=== PATIENT | female | born 1940 | race Caucasian/White ===

== ENCOUNTER 2016-11-11 23:15 | Inpatient (IN) | payer OTHER ==
[~2016-11-11] VITALS: Ht 162.6 cm; Wt 102.7 kg
[2016-11-11 23:46] LABS: BASO % 0 % (0-3); EOS % 1 % (0-3); HEMATOCRIT 41.5 % (36.0-47.0); HEMOGLOBIN 13.3 g/dL (12.0-15.5); LYMPH # 2.2 x10^3/uL (1.0-4.8); LYMPH % 17 % (24-48); MEAN CORPUSCULAR HEMOGLOBIN 28 pg (25-35); MEAN CORPUSCULAR HGB CONC 32 g/dL (31-37); MEAN CORPUSCULAR VOLUME 87 fL (79-100); MONO % 11 % (0-9); NEUT % 72 % (31-73); PLATELET COUNT 284 x10^3/uL (140-400); RED BLOOD COUNT 4.78 x10^6/uL (3.50-5.40); WHITE BLOOD COUNT 13.3 x10^3/uL (4.0-11.0)
[2016-11-11 23:56] LABS: INR 0.9 (0.8-1.1); PROTHROMBIN TIME PATIENT 11.8 SEC (11.7-14.0)
[2016-11-11 23:58] LABS: CALCIUM 9.2 mg/dL (8.5-10.1); CREATININE 0.8 mg/dL (0.6-1.0); GFR 69.6; POTASSIUM 4.6 mmol/L (3.5-5.1)
[2016-11-12 00:04] LABS: ALBUMIN 3.3 g/dL (3.4-5.0); ALBUMIN/GLOBULIN RATIO 0.6 (1.0-1.7); TOTAL BILIRUBIN 0.3 mg/dL (0.2-1.0); TOTAL PROTEIN 8.5 g/dL (6.4-8.2)
[2016-11-12 00:09] LABS: BILIRUBIN,URINE NEGATIVE (NEG); GLUCOSE,URINE NEGATIVE (NEG); NITRITE,URINE NEGATIVE (NEG); PROTEIN,URINE NEGATIVE (NEG-TRACE); UROBILINOGEN,URINE 0.2 mg/dL (0.2 mg/dL)
[2016-11-12 00:15] LABS: BARBITURATES NEG (NEG); BENZODIAZEPINES NEG (NEG); CANNABINOIDS NEG (NEG); COCAINE NEG (NEG); ETHANOL, URINE NEG (NEG); METHADONE NEG (NEG); OPIATES NEG (NEG); PHENCYCLIDINE NEG (NEG)
[2016-11-12 00:17] LABS: BACTERIA,URINE MODERATE /HPF (0-FEW); SQUAMOUS EPITHELIAL CELL,UR MANY /LPF; WBC,URINE TNTC /HPF (0-4)
--- NOTE | 2016-11-12 00:22 | RAD ---
Examination: CT head without contrast History: History of left leg weakness. COMPARISON None available. TECHNIQUE Axial CT images of the head was performed without contrast. Exposure: One or more of the following dose reduction technique were utilized for this examination: 1. Automated exposure control. 2.Adjustment of MA and /or KV according to patient size. 3. Use of iterative reconstruction technique. Findings: There is no evidence of midline shift. No acute intracranial bleed or extra-axial fluid collection identified. Mild bilateral periventricular white matter hypodensities likely chronic small vessel ischemic disease. The visualized lateral ventricles, 3rd ventricle, 4th ventricles are appropriate for age. The basal cisterns are not effaced. The visualized paranasal sinuses, mastoid air cells are clear. IMPRESSION No acute intracranial findings. Electronically signed by: Arthur Contreras (Nov 12, 2016 00:20:40)
--- NOTE | 2016-11-12 00:43 | ED.ADGEN ---
Past Medical History Past Medical History: No Pertinent History Additional Past Medical Histor: PT IS A POOR HISTORIAN Past Surgical History: No Surgical History, Other Additional Past Surgical Histo: PT IS A POOR HISTORIAN BUT HAS A MIDLINE ABDOMINAL SCAR Alcohol Use: None Drug Use: None Adult General Chief Complaint Chief Complaint: WEAKNESS/GENERALIZED HPI HPI Patient is a 76 year old woman, who states she has not seen a primary care provider for "many many years", with history of fibromyalgia, who presents to the emergency department with a complaint of difficulty with ambulation due to weakness in her left leg over the past week. Patient is somewhat rambling in her report, denies any injuries, any nausea or vomiting, any headache, shortness of breath, chest pain, any swelling extremities, any numbness. States that she feels as though her left leg is "dragging", and will sometimes give out when she is ambulate. She states that her family got her walker today, after symptoms began last Friday, and that she was attempting to ambulate this evening from the bathroom, when she felt her leg give out, and she sat down on the carpeted floor of her hallway for about 30 minutes. She states her son then came along encounter, and at that point EMS was contacted. Patient denies any other complaints. She is noted to be tachycardic, heart rate in the 1 teens, oxygen saturations 98% room air, blood pressure is 200/120 on arrival. Review of Systems Review of Systems Constitutional: Denies fever or chills. [] Eyes: Denies change in visual acuity. [] HENT: Denies nasal congestion or sore throat. [] Respiratory: Denies cough or shortness of breath. [] Cardiovascular: Denies chest pain or edema. [] GI: Denies abdominal pain, nausea, vomiting, bloody stools or diarrhea. [] : Denies dysuria. [] Musculoskeletal: Denies back pain or joint pain. [] Integument: Denies rash. [] Neurologic: Denies headache, complaining of weakness in the left lower extremity. Denies any sensory changes. Endocrine: Denies polyuria or polydipsia. [] Lymphatic: Denies swollen glands. [] Psychiatric: Denies depression or anxiety. [] Current Medications Current Medications Current Medications Medications (Trade) Dose Ordered Sig/Efraín Start Time Stop Time Status Last Admin Dose Admin Sodium Chloride (Iv Sodium Chloride 0.9% 500ml Bag) 500 ml @ 500 mls/hr 1X ONCE 11/12/16 01:00 11/12/16 01:59 DC 11/12/16 01:35 500 MLS/HR Allergies Allergies Allergies Coded Allergies Type Severity Reaction Last Updated Verified No Known Drug Allergies 11/11/16 No Physical Exam Physical Exam Constitutional: Well developed, well nourished, no acute distress, non-toxic appearance. [] HENT: Normocephalic, atraumatic, bilateral external ears normal, oropharynx moist, no oral exudates, nose normal. [] Eyes: PERRLA, EOMI, conjunctiva normal, no discharge. [] Neck: Normal range of motion, no tenderness, supple, no stridor. [] Cardiovascular:Heart rate regular rhythm, no murmur [] Lungs & Thorax: Bilateral breath sounds clear to auscultation [] Abdomen: Bowel sounds normal, soft, no tenderness, no masses, no pulsatile masses. [] Skin: Warm, dry, no erythema, no rash. [] Back: No tenderness, no CVA tenderness. [] Extremities: No tenderness, no cyanosis, no clubbing, patient with some motion function of the left lower from especially with distraction, although she states she cannot lift it more than just off the bed. She denies any pain, has no tenderness to palpation. All other extremities are normal. Sensation is normal in all extremity is and cranial nerves. Neurologic: Alert and oriented X 3, normal motor function, normal sensory function, no focal deficits noted. [] Psychologic: Patient is gregarious, cheerful, judgement normal, insightful. Current Patient Data Vital Signs Vital Signs Date Time Temp Pulse Resp B/P Pulse Ox O2 Delivery O2 Flow Rate FiO2 11/12/16 00:45 114 225/115 96 Room Air 11/11/16 23:41 98.4 20 98.4 Lab Values Laboratory Tests Test 11/11/16 23:25 11/11/16 23:39 11/12/16 00:23 White Blood Count 13.3x10^3/uL (4.0-11.0) H Red Blood Count 4.78x10^6/uL (3.50-5.40) Hemoglobin 13.3g/dL (12.0-15.5) Hematocrit 41.5% (36.0-47.0) Mean Corpuscular Volume 87fL (79-100) Mean Corpuscular Hemoglobin 28pg (25-35) Mean Corpuscular Hemoglobin Concent 32g/dL (31-37) Red Cell Distribution Width 14.0% (11.5-14.5) Platelet Count 284x10^3/uL (140-400) Neutrophils (%) (Auto) 72% (31-73) Lymphocytes (%) (Auto) 17% (24-48) L Monocytes (%) (Auto) 11% (0-9) H Eosinophils (%) (Auto) 1% (0-3) Basophils (%) (Auto) 0% (0-3) Neutrophils # (Auto) 9.5x10^3uL (1.8-7.7) H Lymphocytes # (Auto) 2.2x10^3/uL (1.0-4.8) Monocytes # (Auto) 1.4x10^3/uL (0.0-1.1) H Eosinophils # (Auto) 0.1x10^3/uL (0.0-0.7) Basophils # (Auto) 0.0x10^3/uL (0.0-0.2) Prothrombin Time 11.8SEC (11.7-14.0) Prothrombin Time INR 0.9 (0.8-1.1) PTT 32SEC (24-38) Sodium Level 134mmol/L (136-145) L Potassium Level 4.6mmol/L (3.5-5.1) Chloride Level 98mmol/L (98-107) Carbon Dioxide Level 26mmol/L (21-32) Anion Gap 10 (6-14) Blood Urea Nitrogen 17mg/dL (7-20) Creatinine 0.8mg/dL (0.6-1.0) Estimated GFR (Cockcroft-Gault) 69.6 BUN/Creatinine Ratio 21 (6-20) H Glucose Level 129mg/dL (70-99) H Calcium Level 9.2mg/dL (8.5-10.1) Total Bilirubin 0.3mg/dL (0.2-1.0) Aspartate Amino Transferase (AST) 143U/L (15-37) H Alanine Aminotransferase (ALT) 64U/L (14-59) H Alkaline Phosphatase 87U/L (46-116) Troponin I Quantitative < 0.017ng/mL (0.000-0.055) WM-Ibo-E-Type Natriuretic Peptide 56pg/mL (0-449) Total Protein 8.5g/dL (6.4-8.2) H Albumin 3.3g/dL (3.4-5.0) L Albumin/Globulin Ratio 0.6 (1.0-1.7) L Urine Collection Type Unknown Urine Color Yellow Urine Clarity Cloudy Urine pH 7.0 Urine Specific [place] 1.015 Urine Protein Negativemg/dL (NEG-TRACE) Urine Glucose (UA) Negativemg/dL (NEG) Urine Ketones (Stick) Negativemg/dL (NEG) Urine Blood Trace (NEG) Urine Nitrite Negative (NEG) Urine Bilirubin Negative (NEG) Urine Urobilinogen Dipstick 0.2mg/dL (0.2 mg/dL) Urine Leukocyte Esterase Large (NEG) Urine RBC 3-5/HPF (0-2) Urine WBC Tntc/HPF (0-4) Urine Squamous Epithelial Cells Many/LPF Urine Amorphous Sediment Present/HPF Urine Bacteria Moderate/HPF (0-FEW) Urine Mucus Slight/LPF Urine Opiates Screen Neg (NEG) Urine Methadone Screen Neg (NEG) Urine Barbiturates Neg (NEG) Urine Phencyclidine Screen Neg (NEG) Urine Amphetamine/Methamphetamine Neg (NEG) Urine Benzodiazepines Screen Neg (NEG) Urine Cocaine Screen Neg (NEG) Urine Cannabinoids Screen Neg (NEG) Urine Ethyl Alcohol Neg (NEG) Lactic Acid Level 1.5mmol/L (0.4-2.0) Laboratory Tests 11/11/16 23:25 Laboratory Tests 11/11/16 23:25 EKG EKG EC: Sinus tachycardia, heart rate 120 beats minute, upright axis, QTC of 426, RI 188, QRS of 80, no ST elevations or depressions, aside from tachycardia , no other abnormalities identified. As interpreted by me. [] Radiology/Procedures Radiology/Procedures [] [facility] [address] [place] [address] IMAGING REPORT Signed PATIENT: FARHAT CHAVEZ ACCOUNT: [id number] : 1940 LOCATION: ER AGE: 76 SEX: F EXAM STATUS: REG ER ORD. PHYSICIAN: DELL VERGARA DO REASON: weakness PROCEDURE: HEAD WO CONTRAST Examination: CT head without contrast History: History of left leg weakness. COMPARISON None available. TECHNIQUE Axial CT images of the head was performed without contrast. Exposure: One or more of the following dose reduction technique were utilized for this examination: 1. Automated exposure control. 2.Adjustment of MA and /or KV according to patient size. 3. Use of iterative reconstruction technique. Findings: There is no evidence of midline shift. No acute intracranial bleed or extra-axial fluid collection identified. Mild bilateral periventricular white matter hypodensities likely chronic small vessel ischemic disease. The visualized lateral ventricles, 3rd ventricle, 4th ventricles are appropriate for age. The basal cisterns are not effaced. The visualized paranasal sinuses, mastoid air cells are clear. IMPRESSION No acute intracranial findings. Electronically signed by: Arthur Contreras (Nov 12, 2016 00:20:40) DICTATED and SIGNED BY: ARTHUR CONTRERAS MD DATE: 11/12/1619 CC: DELL VERGARA DO; NO PCP ~ Chest x-ray: One view: Normal cardiopulmonary silhouette, no infiltrates, no effusions, no pneumothorax, no soft tissue or bony abnormalities identified. As interpreted by me. Course & Med Decision Making Course & Med Decision Making Pertinent Labs and Imaging studies reviewed. (See chart for details) Patient is a no 4, although she has very exuberant affect. Noted to be persistently hypertensive, blood pressures to 20s over 1 teens to 120s. She states that she has no history of hypertension that she is aware of. Also tachycardic, heart rate in the low 100s. Denies any chest pain, any shortness of breath, no irregularities noted in her EKG. patient's neurologic examination is inconsistent, as she will sometimes move the left leg, although she states she was unable to do so willfully. No vision deficits, no sensory deficits noted, CT of the head obtained which was unremarkable. Due to patient' s hypertension, with lack of history of treatment, I did speak with Dr. Talbert of cardiology, he recommended giving the patient 12.5 mg of metoprolol 1 at this point, initiated the patient on an nitroglycerin infusion. Patient also noted to have a urinary tract infection, was initiated on antibiotic treatment, and IV fluids. I did discuss this with the patient, she was in agreement with plan for admission and management of her hypertension. Nitroglycerin drip initiated in the ED, blood pressure improved, to 160s over 80s, heart rate in the 80s, patient continued to rest comfortably and denied any new complaints. Will admit to the cardiac telemetry floor, with consultation with cardiology, and neurology, admitted to the service of Dr. Canales. Bridge orders entered per discussion. Dragon Disclaimer Dragon Disclaimer This electronic medical record was generated, in whole or in part, using a voice recognition dictation system. Departure Impression: Primary Impression: Malignant hypertension Additional Impressions: Urinary tract infection Weakness Disposition: ADMITTED INPATIENT Admitting Physician: Other Condition: IMPROVED Problem Qualifiers DELL VERGARA DO Nov 12, 2016 00:43
[2016-11-12] MEDS ORDERED: IV NORMAL SALINE 500ML BAG 500 ML IV ONE (01:00)
[2016-11-12] MEDS ORDERED: METOPROLOL TART IMMED RELEASE 25 MG TABLET PO ONE (01:15)
[2016-11-12] MEDS ORDERED: CEFTRIAXONE 1GM IVPB FOR OMNI 50 ML IV ONE (01:15)
[2016-11-12] MEDS ORDERED: NITROGLYCERIN PREMIX 250 ML IV ONE (01:15)
--- NOTE | 2016-11-12 02:53 | ACF ---
Admission Forms Criteria CARDIOLOGY GRG Clinical Indications for Admission to Inpatient Care ( Place 'X' for any and all applicable criteria): Hospital admission is needed for appropriate care of the patient because of ANY ONE of the following (1): [ ] I. Hemodynamic instability as indicated by ALL of the following (1)(2)(3) (4)(5) [ ]a) Vital signs or other findings not as expected for chronic patient condition or baseline [ ]b) Instability indicated by ANY ONE of the following: [ ]i) Hypotension [ ]ii) Symptomatic Tachycardia unresponsive to treatment ( e.g., analgesia, fluids, sedation as indicated) [ ]iii) Inadequate perfusion indicated by ANY ONE of the following: [ ] 1) Lactic acidosis (> 2 mmol/L) [ ] 2) New abnormal capillary refill (> 3 seconds) [ ] 3) Reduced urine output [ ] 4) New altered mental status [ ]iv) Orthostatic vital sign changes unresponsive to treatment (e.g., fluids) [ ]v) IV inotropic or vasopressor medication required to maintain adequate blood pressure or perfusion [ ] II. Severe heart failure as indicated by ANY ONE of the following(17)(18) [ ]a) Respiratory distress [ ]b) Hypotension [ ]c) Anasarca (refractory to outpatient therapy) [ ]d) Cardiac arrhythmias of immediate concern [ ]e) Myocardial ischemia [ ] III. Cardiac arrhythmias or findings of immediate concern indicated by ANY ONE of the following (19)(20): [ ] a) Heart rhythms that are inherently dangerous or unstable indicated by ANY ONE of the following (21)(22)(23): [ ] i) Resuscitated ventricular fibrillation or cardiac arrest [ ] ii) Ventricular escape rhythm [ ] iii) Sustained ventricular tachycardia (30 seconds or more of ventricular rhythm at greater than 100 beats per minute) [ ] iv) Nonsustained ventricular tachycardia and ANY ONE of the following: [ ] 1) Suspected cardiac ischemia as cause or consequence of ventricular tachycardia [ ] 2) In setting of acute myocarditis [ ] b) Unstable cardiac conduction defects indicated by ANY ONE of the following(23)(24)(25) [ ] i) Type II second-degree atrioventricular block [ ]ii) Third-degree atrioventricular block [ ]iii) New-onset left bundle branch block with suspected myocardial ischemia [ ]c) Any heart rhythm and ANY ONE of the following (21)(22)(26)(27) (28) [ ] i) Continuous long-term ECG monitoring needed (e.g., initiation of drug requiring monitoring for more than 24 hours) [ ] ii) Patient has automatic implanted cardioverter defibrillator that is repeatedly firing, malfunctioning, or in need of immediate adjustment of settings beyond the scope of ambulatory or observation care [ ]d) Heart rhythms of concern due to ANY ONE of the following: [ ] i) Hypotension [ ] ii) Respiratory distress [ ] iii) Association with other significant symptoms (e.g., bradycardia with syncope or ongoing dizziness, supraventricular tachycardia with chest pain (14)(15)(17) [ ] IV. Monitoring for cardiac contusion beyond the scope of observation care needed [A](30)(31)(32) [ ] V. Surgical or device complication (e.g., valve replacement complication , pacemaker dysfunction) (35)(41)(44)(45)(46) [ ] . Inpatient palliative care needed. [B](49) Also use Inpatient Palliative Care Criteria [ ] VII. Nonbacterial thrombotic (marantic) endocarditis (36)(43)(47)(48) [X] VIII. Cardiology condition, symptom, or finding for which emergency and observation care has failed or are not considered appropriate. [ ] IX. Acute valvular disease requiring inpatient as indicated by ANY ONE of the following (41) [ ]a) Acute valvular regurgitation (42) [ ]b) Noninfectious valvulitis (43) [ ]c) Obstructive valve thrombosis [ ]d) Paravalvular leak [ ]e) Other significant valvular disorder remaining after emergency or observation level of care (as appropriate) [ ]X. Pericardial disease requiring inpatient treatment as indicated by ANY ONE of the following (33)(34)(35)(36)(37) [ ]a) Suspected tamponade (38)(39)(40) [ ]b) Hemopericardium [ ]c) Other significant pericardial disorder remaining after emergency or observation level of care (as appropriate) [ ] XI. Cardiac ischemia beyond scope of emergency and observation care. [ ] XII. Hypertension requiring inpatient treatment as indicated by ANY ONE of the following (6)(7)(8) [ ]a) SBP greater than 220 mm Hg or DBP greater than 120 mmHg despite treatment [ ]b) SBP greater than 140 mm Hg or DBP greater than 100 mm Hg with evidence of acute end organ damage as indicated by ANY ONE of the following [ ] i) Encephalopathy [ ] ii) Acute renal failure as indicated by new onset of ANY ONE of the following (9)(10)(11)(12)(13) [ ]1) 3-fold rise in serum creatinine from baseline [ ]2) Serum creatinine greater than 4 mg/dL ( 354 micromoles/L) with acute rise greater than 0.5 mg/dL (44.2 micromoles/L) [ ]3) Reduction of more than 75% in estimated glomerular filtration rate from baseline [ ]4) Estimated glomerular filtration rate less than 35 mL/min/1.73m2 (0.59 mL/sec/1.73m2) in child up to 18 years of age [ ]5) Cessation of urine output indicated by ALL of the following [ ]A. Adequate volume status [ ]B. Inadequate urine output as indicated by ANY ONE of the following [ ]a. Urine output less than 0.3 mL/kg/hr for 24 hours [ ]b. Anuria (urine output less than 0.1 mL/kg/hr) for 12 hours [ ] iii) Aortic dissection [ ] iv) Myocardial Ischemia [ ] v) Left ventricular heart failure [ ]vi) Retinal Hemorrhage [ ]vii) Other significant finding [ ]c) Hypertension in child requiring inpatient treatment as indicated by ALL of the following(14)(15)(16) [ ] i) Outpatient treatment not effective, not available, or not appropriate [ ]ii) SBP or DBP greater than 95th percentile for age [ ]iii) Evidence of acute end organ damage as indicated by ANY ONE of the following [ ]1) Altered mental status [ ]2) Acute renal failure as indicated by new onset of ANY ONE of the following(9)(10)(11)(12)(13) [ ]A. 3-fold rise in serum creatinine from baseline [ ]B. Serum creatinine greater than 4 mg/dL (354 micromoles/L) with acute rise greater than 0.5 mg/dL (44.2 micromoles/L) [ ]C. Reduction of more than 75% in estimated glomerular filtration rate from baseline [ ]D. Estimated glomerular filtration rate less than 35 mL/min/1.73m2 (0.59 mL/sec/1.73m2) in child up to 18 years of age [ ]E. Cessation of urine output indicated by ALL of the following [ ]a. Adequate volume status [ ]b. Inadequate urine output as indicated by ANY ONE of the following [ ]i) Urine output less than 0.3 mL/kg/hr for 24 hours [ ]ii) Anuria ( urine output less than 0.1 mL/kg/hr) for 12 hours [ ]3) Severe headache [ ]4) Visual disturbance [ ]5) Retinal hemorrhage [ ]6) Other significant finding [ ]XIII. Complications of transplanted heart indicated by ANY ONE of the following(61): [ ]a) Acute graft rejection requiring inpatient management (eg, intravenous immunosuppression)(62)(63) [ ]b) Acute graft heart failure indicated by ANY ONE of the following(64): [ ]i) Hemodynamic instability [ ]ii) Cardiac arrhythmias of immediate concern [ ]iii) Pulmonary edema that is very severe (eg, mechanical ventilation needed, imminent or likely, need for 100% oxygen to keep oxygen saturation above 90%) [ ]iv) Pulmonary edema that is persistent as indicated by ALL of the following: [ ]1) New need for oxygen therapy to keep oxygen saturation above 90% (or increased FiO2 need from baseline) [ ]2) Has not improved sufficiently with emergency department or observation care IV diuretics or other heart failure treatments[E] [ ]v) Altered mental status that is severe or persistent [ ]vi) Increased creatinine (new on laboratory test) with reduction of more than 50% in estimated glomerular filtration rate from baseline [ ]vii) Progressively (ongoing) rising creatinine (known from past laboratory test) with reduction of more than 25% in estimated glomerular filtration rate from baseline [ ]viii) Acute renal failure [ ]ix) Acute peripheral ischemia (eg, examination shows pulseless, cool, mottled, or cyanotic extremity) [ ]x) Pulmonary artery catheter monitoring needed [ ]xi) Other sign or symptom of heart failure requiring inpatient treatment (ie, too severe or not responsive to outpatient and observation care treatment) [ ]c) Infection requiring inpatient management (eg, Hemodynamic instability, need for intravenous antimicrobial treatment)(66)(67)(68)(69)(70) [ ]d) Cardiac allograft vasculopathy requiring inpatient management ( eg evidence of cardiac ischemia)(71) [ ]e) Other complication of transplanted heart (eg, stroke, severe pulmonary hypertension, severe valvular dysfunction) requiring inpatient management(72) The original [facility] content created by [facility] has been revised. The portions of the content which have been revised are identified through the use of italic text or in bold, and [facility] has neither reviewed nor approved the modified material. All other unmodified content is copyright [facility]. Please see references footnoted in the original [facility] edition 2016 Admission Criteria Met?: Yes MARCOS ALLISON Nov 12, 2016 02:53
[2016-11-12] MEDS ORDERED: ONDANSETRON PF 4 MG/2 ML VIAL. IV PRN (03:00)
[2016-11-12 03:40] VITALS: BP 181/96
--- NOTE | 2016-11-12 07:19 | RAD ---
Portable chest, 11/12/2016: History: Weakness The heart size and pulmonary vascularity are normal. There is mild tortuosity of the thoracic aorta. No pulmonary infiltrates are seen. There is no evidence of pleural fluid. IMPRESSION: No acute cardiopulmonary abnormality is detected.
[2016-11-12 07:44] VITALS: BP 188/96
--- NOTE | 2016-11-12 08:05 | EKG ---
[facility] [address] [place] [address] Test Date: 2016-11-11 Test Time: 23:23:45 Pat Name: FARHAT CHAVEZ Department: Room: 201 1 Gender: F Campaign Worker: : 1940 Requested By: DELL VERGARA Order Number: [id number] Reading MD: Margo Hess Measurements Intervals [place] Rate: 120 P: 61 DC: 158 QRS: 15 QRSD: 80 T: 46 QT: 298 QTc: 426 Interpretive Statements SINUS TACHYCARDIA OTHERWISE NORMAL ECG RI6.01 No previous ECG available for comparison Electronically Signed On 11-12-2016 20:58:12 CDT by Margo Hess
[2016-11-12] MEDS ORDERED: METOPROLOL TART IMMED RELEASE 25 MG TABLET PO SCH (10:30)
[2016-11-12 10:42] VITALS: BP 176/84
--- NOTE | 2016-11-12 10:47 | PDOC2 ---
JOSILVIANO NORIEGA [employer] 11/12/16 1047: CARDIAC CONSULT DATE OF CONSULT Date of Consult DATE: 11/12/16 TIME: 10:26 REASON FOR CONSULT Reason for Consult: HTN REFERRING PHYSICIAN Referring Physician: Dr. Lisa Contreras SOURCE Source: Chart review, Patient (who is a poor historian) HISTORY OF PRESENT ILLNESS HISTORY OF PRESENT ILLNESS 76 year old female with bilateral upper arm pain starting on either 10/12/16 or . She initially treated with BenGay and Dr. Colin ointment without change in pain. She subsequently developed Left hip and Left leg pain which she treated with Vit E ointment. She reports multiple dates for when she started "dragging" the Left leg. She thought she had fibromyalgia. Has treated with multiple supplements and/or "natural products" at home. Does not monitor BP but treats with powdered green tea based on how she feels. Denies CP, palpitations, LE edema, melana, dysuria, dizziness, lightheadedness, visual changes. EKG demonstrates ST without acute changes. NT-proBNP not consistent with CHF and troponin level not consistent with AMI. CT of head without acute findings. SBP > 200 POA and given one oral dose of metoprolol and then started on NTG gtt. 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, surgical removal of appendix, GB, and hemorrhoidectomy with subsequent cobalt therapy @ [facility]) PAST SURGICAL HISTORY Past Surgical History see [facility] FAMILY HISTORY Family History: Diabetes (mother) SOCIAL HISTORY Smoke: Quit ALCOHOL: other (quit) Drugs: Other CURRENT MEDICATIONS CURRENT MEDICATIONS Current Medications Medications (Trade) Dose Ordered Sig/Efraín Route PRN Reason Start Time Stop Time Status Last Admin Dose Admin Sodium Chloride 500 ml @ 500 mls/hr 1X ONCE IV 11/12/16 01:00 11/12/16 01:59 DC 11/12/16 01:35 Nitroglycerin/ Dextrose (Nitroglycerin Drip) 250 ml @ 0 mls/hr 1X ONCE IV 11/12/16 01:15 11/12/16 01:16 DC 11/12/16 01:35 Metoprolol Tartrate 12.5 mg 12.5 mg 1X ONCE PO 11/12/16 01:15 11/12/16 01:16 DC 11/12/16 01:34 Ceftriaxone Sodium (Rocephin 1gm Ivpb For Omni) 50 ml @ 100 mls/hr 1X ONCE IV 11/12/16 01:15 11/12/16 01:44 DC 11/12/16 01:34 ALLERGIES ALLERGIES: Coded Allergies: No Known Drug Allergies (Unverified , 11/11/16) ROS Review of System 14 point review with pertinent positives in HPI PHYSICAL EXAM General: Alert, Cooperative, No acute distress HEENT: Atraumatic, PERRLA Lungs: Clear to auscultation, Normal air movement Heart: Regular rate (tachycardic), Normal S1, Normal S2, Other (tele: ST; no carotid bruits) Abdomen: Normal bowel sounds, Soft, No tenderness Extremities: No edema, Normal pulses Skin: No rashes Neuro: Normal speech Psych/Mental Status: Mental status NL, Mood NL MUSCULOSKELETAL: No deformity VITALS VITALS Vital Signs Date Time Temp Pulse Resp B/P Pulse Ox O2 Delivery O2 Flow Rate FiO2 11/12/16 08:00 Room Air 11/12/16 07:44 98.5 90 20 188/96 96 98.5 LABS Lab: Laboratory Tests Test 11/11/16 23:25 11/11/16 23:39 11/12/16 00:23 White Blood Count 13.3x10^3/uL (4.0-11.0) Red Blood Count 4.78x10^6/uL (3.50-5.40) Hemoglobin 13.3g/dL (12.0-15.5) Hematocrit 41.5% (36.0-47.0) Mean Corpuscular Volume 87fL (79-100) Mean Corpuscular Hemoglobin 28pg (25-35) Mean Corpuscular Hemoglobin Concent 32g/dL (31-37) Red Cell Distribution Width 14.0% (11.5-14.5) Platelet Count 284x10^3/uL (140-400) Neutrophils (%) (Auto) 72% (31-73) Lymphocytes (%) (Auto) 17% (24-48) Monocytes (%) (Auto) 11% (0-9) Eosinophils (%) (Auto) 1% (0-3) Basophils (%) (Auto) 0% (0-3) Neutrophils # (Auto) 9.5x10^3uL (1.8-7.7) Lymphocytes # (Auto) 2.2x10^3/uL (1.0-4.8) Monocytes # (Auto) 1.4x10^3/uL (0.0-1.1) Eosinophils # (Auto) 0.1x10^3/uL (0.0-0.7) Basophils # (Auto) 0.0x10^3/uL (0.0-0.2) Prothrombin Time 11.8SEC (11.7-14.0) Prothromb Time International Ratio 0.9 (0.8-1.1) Activated Partial Thromboplast Time 32SEC (24-38) Sodium Level 134mmol/L (136-145) Potassium Level 4.6mmol/L (3.5-5.1) Chloride Level 98mmol/L (98-107) Carbon Dioxide Level 26mmol/L (21-32) Anion Gap 10 (6-14) Blood Urea Nitrogen 17mg/dL (7-20) Creatinine 0.8mg/dL (0.6-1.0) Estimated GFR (Cockcroft-Gault) 69.6 BUN/Creatinine Ratio 21 (6-20) Glucose Level 129mg/dL (70-99) Calcium Level 9.2mg/dL (8.5-10.1) Total Bilirubin 0.3mg/dL (0.2-1.0) Aspartate Amino Transf (AST/SGOT) 143U/L (15-37) Alanine Aminotransferase (ALT/SGPT) 64U/L (14-59) Alkaline Phosphatase 87U/L (46-116) Troponin I Quantitative < 0.017ng/mL (0.000-0.055) EV-Zwn-H-Type Natriuretic Peptide 56pg/mL (0-449) Total Protein 8.5g/dL (6.4-8.2) Albumin 3.3g/dL (3.4-5.0) Albumin/Globulin Ratio 0.6 (1.0-1.7) Urine Collection Type Unknown Urine Color Yellow Urine Clarity Cloudy Urine pH 7.0 Urine Specific [place] 1.015 Urine Protein Negativemg/dL (NEG-TRACE) Urine Glucose (UA) Negativemg/dL (NEG) Urine Ketones (Stick) Negativemg/dL (NEG) Urine Blood Trace (NEG) Urine Nitrite Negative (NEG) Urine Bilirubin Negative (NEG) Urine Urobilinogen Dipstick 0.2mg/dL (0.2 mg/dL) Urine Leukocyte Esterase Large (NEG) Urine RBC 3-5/HPF (0-2) Urine WBC Tntc/HPF (0-4) Urine Squamous Epithelial Cells Many/LPF Urine Amorphous Sediment Present/HPF Urine Bacteria Moderate/HPF (0-FEW) Urine Mucus Slight/LPF Urine Opiates Screen Neg (NEG) Urine Methadone Screen Neg (NEG) Urine Barbiturates Neg (NEG) Urine Phencyclidine Screen Neg (NEG) Urine Amphetamine/Methamphetamine Neg (NEG) Urine Benzodiazepines Screen Neg (NEG) Urine Cocaine Screen Neg (NEG) Urine Cannabinoids Screen Neg (NEG) Urine Ethyl Alcohol Neg (NEG) Lactic Acid Level 1.5mmol/L (0.4-2.0) IMAGES IMAGES CXR: The heart size and pulmonary vascularity are normal. There is mild tortuosity of the thoracic aorta. No pulmonary infiltrates are seen. There is no evidence of pleural fluid. IMPRESSION: No acute cardiopulmonary abnormality is detected. EKG EKG no acute changes ASSESSMENT/PLAN ASSESSMENT/PLAN 1. malignant HTN, POA start oral meds and wean IV NTG off echo to evaluate for hypertensive heart disease 2. weakness LLE no evidence of acute stroke on CT of head 3. tachycardia not febrile or anemic will check TSH ? related to supplements she takes that she does not known the names of Problems: AGNES JAMES MD 11/12/16 1827: CARDIAC CONSULT ALLERGIES ALLERGIES: Coded Allergies: No Known Drug Allergies (Unverified , 11/11/16) ASSESSMENT/PLAN ASSESSMENT/PLAN Pt. seen and examined. Agree with above note. patient has significant psychiatric issues that preclude appropriate treatment with normal CV meds. I tried to have a conversation with her but she is not really understanding implications of her HTN Normal cardiac exam. Will continue ca channel blockers. Hope that she complies when she leaves the hospital. Problems: SILVIANO LOPEZ APRN Nov 12, 2016 10:47 AGNES JAMES MD Nov 12, 2016 18:27
[2016-11-12 10:54] LABS: CHOLESTEROL/HDL RATIO 2.4
[2016-11-12] MEDS ORDERED: DILTIAZEM HCL 180 MG CAP.ER.24H PO SCH (11:00)
[2016-11-12] MEDS: hydrALAZINE 20 MG/ML VIAL. IVP PRN (12:05)
--- NOTE | 2016-11-12 12:25 | HP ---
ADMIT DATE: 11/12/2016 CHIEF COMPLAINT: Weakness. HISTORY OF PRESENT ILLNESS: The patient is a pleasant elderly female who is a poor historian. She presents with weakness. She has been ____ left leg a little bit. She also has a history of fibromyalgia. She is a poor historian. Imaging studies in the ER really did not show any acute stroke, but she certainly has malignant hypertension with pressures in the 200s. I have discussed the case with the ER physician. She is being admitted with consultation to Cardiology and Neurology and she is being placed on a nitro drip. PAST MEDICAL HISTORY: Probable early dementia, hypertension, noncompliance. Other past medical history is not known. She seems to be a poor historian. ALLERGIES: None. FAMILY HISTORY: Coronary artery disease. SOCIAL HISTORY: She does not drink, smoke or take drugs. I believe she lives at a facility. MEDICATIONS: Reviewed. According to records, she ____ anything. REVIEW OF SYSTEMS: Unobtainable, the patient is too confused, although she does complain of some left-sided weakness. PHYSICAL EXAMINATION: VITAL SIGNS: Temperature afebrile, pulse 67, respirations 18, blood pressure is down to 176/84, the highest we have had 225/115. She is on nitro drip. HEART: Distant S1, S2. LUNGS: Clear. ABDOMEN: Soft, positive bowel sounds. EXTREMITIES: Trace edema. SKIN: No rashes. PSYCHIATRIC: She is a little anxious. VASCULAR: Good capillary refill. ENDOCRINE: No thyromegaly. LYMPHATICS: No cervical nodes. HEMATOPOIETIC: No bruising. NEUROLOGICAL: She seems a little weak on the left, but she is not really participating in my exam very well. LABORATORY DATA: White count 13, hemoglobin 13, platelets 284. Electrolytes pending. Troponin is 0. Drug screen is negative. Urinalysis shows too numerous to count white cells and moderate bacteria and large amount of leukocyte esterase. INR 0.9. ASSESSMENT AND PLAN: Accelerated hypertension, resolving weakness with incidental finding of urinary tract infection, probable metabolic encephalopathy, possible early dementia. The patient has been admitted. We will start IV antibiotics. Consult Cardiology, consult Neurology, IV nitro for her accelerated hypertension. PT, OT evaluate and treat. Continue home medicines. senior care evaluation. NIAL K. CASTLE, DO DR: NOEMI/lorenzo JOB#: [id number] / [id number]
--- NOTE | 2016-11-12 12:38 | CARD ---
APPROVED REPORT EXAM: Two-dimensional and M-mode echocardiogram with Doppler, color Doppler with bubble study. Other Information Quality : Average Rhythm : NSR INDICATION CVA/TIA Hypertension/HCVD Echo Enhancing Agent Indication: Rule Out Septal Defect Agent/Amount Used: Agitated Saline 16mL 2D DIMENSIONS RVDd2.3 (2.9-3.5cm)Left Atrium(2D)4.0 (1.6-4.0cm) IVSd1.2 (0.7-1.1cm)Aortic Root(2D)2.6 (2.0-3.7cm) LVDd4.9 (3.9-5.9cm)LVOT Diameter2.1 (1.8-2.4cm) PWd1.2 (0.7-1.1cm)LVDs3.4 (2.5-4.0cm) FS (%) 27.7 %SV65.4 ml LVEF(%)55.0 (>50%) Aortic Valve AoV Peak Lonny.157.7cm/sAoV VTI26.3cm AO Peak GR.9.9mmHgLVOT VTI 15.18cm AO Mean GR.6mmHgAVA (VTI)2.05cm2 Mitral Valve MV E Nnabmvlz48.3cm/sMV E Peak Gr.6mmHg MV DECEL [id number] A Qxvppuao737.7cm/s MV E Mean Gr.3mmHgMV AIY71bh E/A Ratio0.8MV A Soelkhza00ks MVA (PHT)4.40cm2 TDI Lateral E' P. V7.53cm/sMedial E' P. V5.15cm/s E/Lateral E'11.3E/Medial E'16.6 Tricuspid Valve TR P. Tgxviqfx759vv/sRAP MMQQZLRE2smHk TR Peak Gr.58xkXjPVXR90wyUh LEFT VENTRICLE The left ventricle is normal size. There is borderline concentric left ventricular hypertrophy. Left ventricle systolic function is low normal at 50%. There is normal LV segmental wall motion. Tissue Do ppler imaging reveals mild left ventricular diastolic dysfunction. RIGHT VENTRICLE The right ventricle is normal size. The right ventricular systolic function is normal. ATRIA The left atrium size is normal. The right atrium size is normal. The interatrial septum is intact wit h no evidence for an atrial septal defect or patent foramen ovale as noted on 2-D or Doppler imaging. Injection of bubbles documented no interatrial shunt. AORTIC VALVE The aortic valve is normal in structure and function. The aortic valve is trileaflet. Doppler and Col or Flow revealed no significant aortic regurgitation. There is no significant aortic valvular stenosi s. MITRAL VALVE The mitral valve leaflets are thickened. There is no mitral valve stenosis. Doppler and Color Flow re vealed trace to mild mitral regurgitation. TRICUSPID VALVE The tricuspid valve is normal in structure and function. Doppler and Color Flow revealed trace to mil d tricuspid regurgitation. The PA pressure was estimated at 26 mmHg. There is no tricuspid valve sten osis. PULMONIC VALVE The pulmonic valve is not well visualized. Doppler and Color Flow revealed no pulmonic valvular regur gitation. There is no pulmonic valvular stenosis. GREAT VESSELS The aortic root is normal in size. The IVC is normal in size and collapses >50% with inspiration. PERICARDIAL EFFUSION There is no evidence of significant pericardial effusion. Critical Notification Critical Value: No <Conclusion> Left ventricle systolic function is low normal at 50%. There is normal LV segmental wall motion. The interatrial septum is intact with no evidence for an atrial septal defect or patent foramen ovale as noted on 2-D or Doppler imaging. Injection of bubbles documented no interatrial shunt.
[2016-11-12] MEDS: IV NORMAL SALINE 1000ML BAG 1,000 ML IV SCH ×2 (12:56→22:45)
[2016-11-12 15:55] VITALS: BP 157/88
--- NOTE | 2016-11-12 16:17 | RAD ---
PROCEDURE MRI brain without contrast. HISTORY Left-sided weakness. TECHNIQUE Sagittal T1, axial T1, axial T2, axial FLAIR, axial T2 gradient, coronal T2, and diffusion imaging with ADC map were performed. COMPARISON CT head from 1 day earlier. FINDINGS There is prominence of the ventricles and sulci. FLAIR hyperintensities in the supratentorial white matter are nonspecific but most suggestive of mild small vessel ischemic disease. There is no acute intracranial hemorrhage or extra-axial fluid collection. There is no mass effect or midline shift. There is no restricted diffusion to suggest an acute infarct. Cervicomedullary junction is unremarkable. Intracranial flow voids are preserved. There is minimal ethmoid mucosal thickening. Mastoid air cells are clear. IMPRESSION Brain parenchymal volume loss and mild probable small-vessel ischemic disease. No acute intracranial findings. Electronically signed by: Dar Stephenson MD (Nov 12, 2016 16:15:41)
[2016-11-12] MEDS: HYDRALAZINE 25 MG TABLET PO SCH ×2 (16:19→21:26)
--- NOTE | 2016-11-12 17:01 | PDOC2 ---
NEUROLOGY CONSULT Date of Admission Date of Admission DATE: 11/12/16 TIME: 16:45 Reason for Consult Reason for Consult: IMPRESSION: Generalized tiredness. Left LE weakness and pain. Left LE radiculopathy? Hypertensive emergency, BP 225/109-124 mmHg. HTN UTI Degenerative spine disease. Obesity. No evidence of acute CVA this time. RECOMMENDATIONS/PLAN: L-spine MRI. BP control. Neurontin 100 mg tid. Treat UTI and underlying medical diseases. Lab: see orders. OT/PT. Brain MRI: Negative. Lab: TSH, Vit B12 wnl. Elevated CK. HISTORY OF THE PRESENT ILLNESS: 76-y-old AA female patient with above medical diseases and HTN that was not controlled due to her non-compliance for treatment. She developed symptoms of left LE weakness and pain for about 1 week before she was admitted into hospital. No symptoms of urinary or bowel dysfunction. Her UE and cranial nerves were nt involved. PAST MEDICAL HISTORY: Please see above. PAST SURGERY HISTORY: Appendectomy Hemorroidectomy ALLERGY: Reviewed. MEDICATIONS: Refer to MAR FAMILY HISTORY: DM SOCIAL HISTORY: Lives at home. Denies current smoking, drinking, and illicit drug use. She smoked cigarettes in past. REVIEW OF SYSTEMS: Constitutional: No malnutrition, weight loss, cachexia. Head: No recent traumatic brain or head injury. Skin: No edema, or rash. Ear: No infection. Eyes: No vision loss or color blindness. Nose: No bleeding or purulent discharges. Hearing: No hearing decrease. Neck: No recent injury. Breast: No history of cancer, masses,or discharges. Cardiac: HTN. Pulmonary: No COPD. GI: No GI ulcer, GI bleeding. Urinary/genital: UTI. Endocrinologic: obesity Skeletomuscular: Generalized weakness tiredness. Neurological: see HP. Psychiatric: Denies drug use/abuse. Otherwise, not [id number] review of systems. PHYSICAL EXAMINATION: General appearance is in no acute distress. HEENT: Normocephalic and nontraumatic. Eyes, nose, ears, and throat are unremarkable. Neck is supple. No lymphadenopathy. No bruits are heard over the carotid artery. No crepitus. Cardiovascular: S1, S2, regular rate and rhythm. Pulmonary: Clear to auscultation bilaterally. Abdomen: Bowel sounds are positive. Abdomen is soft, nontender, and nondistended. Extremities: No rash, lesions, or edema. No restriction of range of motion NEUROLOGICAL EXAMINATION: Alert Oriented to time, place and person. PERRL. EOMI. CN: no focal findings. Muscle tone: within normal. Muscle strength: 5 right side, 4- left LE. DTR: 1-2 Plantar reflex: Flexor response bilaterally Gait: not examined in bed. Sensory exam: no abnormal findings on right side, pain to palpation ojn left lateral aspect of LE. No cerebellar signs elicited. F-T-N test accurate. Current Medications Current Medications Current Medications Sodium Chloride 500 ml @ 500 mls/hr 1X ONCE IV Last administered on 01:35; Start 11/12/16 at 01:00; Stop 11/12/16 at 01:59; Status DC Nitroglycerin/ Dextrose (Nitroglycerin Drip) 250 ml @ 0 mls/hr 1X ONCE IV Last administered on 11/12/16 01:35; Start 11/12/16 at 01:15; Stop 11/12/16 at 01:16; Status DC Metoprolol Tartrate 12.5 mg 12.5 mg 1X ONCE PO Last administered on 11/12/16 01:34; Start 11/12/16 at 01:15; Stop 11/12/16 at 01:16; Status DC Ceftriaxone Sodium 50 ml @ 100 mls/hr 1X ONCE IV Last administered on 01:34; Start 11/12/16 at 01:15; Stop 11/12/16 at 01:44; Status DC Ceftriaxone Sodium/Sodium Chloride (Rocephin/Iv Sodium Chloride 0.9% 50ml) 50 ml @ 100 mls/hr Q24H IV ; Start 11/12/16 at 21:00 Ondansetron HCl (Zofran) 4 mg PRN Q8HRS PRN IV NAUSEA/VOMITING; Start 11/12/16 at 03:00; Stop 11/13/16 at 02:59 Metoprolol Tartrate (Lopressor) 25 mg BID PO ; Start 11/12/16 at 10:30; Stop at 10:35; Status DC Hydralazine HCl (Apresoline) 10 mg PRN Q4HRS PRN IVP ELEVATED BP, SEE COMMENTS Last administered on 11/12/16 12:05; Start 11/12/16 at 10:30 Diltiazem HCl (Cardizem 24hr Cd) 180 mg DAILY PO Last administered on 11:11; Start 11/12/16 at 11:00; Stop 11/12/16 at 12:44; Status DC Diltiazem HCl (Cardizem 24hr Cd) 240 mg DAILY PO ; Start 11/13/16 at 09:00 Hydralazine HCl 25 mg 25 mg Q8HRS PO Last administered on 11/12/16 16:19; Start 11/12/16 at 14:00 Sodium Chloride (Iv Sodium Chloride 0.9% 1000ml Bag) 1,000 ml @ 100 mls/hr Q10H IV Last administered on 11/12/16 12:56; Start 11/12/16 at 13:30 Active Scripts Active Reported No Known Medications Prior To Admisstion (Info) Each 1 Each MC Allergies Allergies: Coded Allergies: No Known Drug Allergies (Unverified , 11/11/16) Vitals VITALS Vital Signs Date Time Temp Pulse Resp B/P Pulse Ox O2 Delivery O2 Flow Rate FiO2 11/12/16 16:19 91 158/77 11/12/16 15:55 98.2 20 96 Room Air 98.2 Labs Labs Laboratory Tests Test 11/11/16 23:25 11/11/16 23:39 11/12/16 00:23 11/12/16 11:55 White Blood Count 13.3x10^3/uL (4.0-11.0) Red Blood Count 4.78x10^6/uL (3.50-5.40) Hemoglobin 13.3g/dL (12.0-15.5) Hematocrit 41.5% (36.0-47.0) Mean Corpuscular Volume 87fL (79-100) Mean Corpuscular Hemoglobin 28pg (25-35) Mean Corpuscular Hemoglobin Concent 32g/dL (31-37) Red Cell Distribution Width 14.0% (11.5-14.5) Platelet Count 284x10^3/uL (140-400) Neutrophils (%) (Auto) 72% (31-73) Lymphocytes (%) (Auto) 17% (24-48) Monocytes (%) (Auto) 11% (0-9) Eosinophils (%) (Auto) 1% (0-3) Basophils (%) (Auto) 0% (0-3) Neutrophils # (Auto) 9.5x10^3uL (1.8-7.7) Lymphocytes # (Auto) 2.2x10^3/uL (1.0-4.8) Monocytes # (Auto) 1.4x10^3/uL (0.0-1.1) Eosinophils # (Auto) 0.1x10^3/uL (0.0-0.7) Basophils # (Auto) 0.0x10^3/uL (0.0-0.2) Prothrombin Time 11.8SEC (11.7-14.0) Prothromb Time International Ratio 0.9 (0.8-1.1) Activated Partial Thromboplast Time 32SEC (24-38) Sodium Level 134mmol/L (136-145) Potassium Level 4.6mmol/L (3.5-5.1) Chloride Level 98mmol/L (98-107) Carbon Dioxide Level 26mmol/L (21-32) Anion Gap 10 (6-14) Blood Urea Nitrogen 17mg/dL (7-20) Creatinine 0.8mg/dL (0.6-1.0) Estimated GFR (Cockcroft-Gault) 69.6 BUN/Creatinine Ratio 21 (6-20) Glucose Level 129mg/dL (70-99) Calcium Level 9.2mg/dL (8.5-10.1) Total Bilirubin 0.3mg/dL (0.2-1.0) Aspartate Amino Transf (AST/SGOT) 143U/L (15-37) Alanine Aminotransferase (ALT/SGPT) 64U/L (14-59) Alkaline Phosphatase 87U/L (46-116) Troponin I Quantitative < 0.017ng/mL (0.000-0.055) IO-Ekw-N-Type Natriuretic Peptide 56pg/mL (0-449) Total Protein 8.5g/dL (6.4-8.2) Albumin 3.3g/dL (3.4-5.0) Albumin/Globulin Ratio 0.6 (1.0-1.7) Urine Collection Type Unknown Urine Color Yellow Urine Clarity Cloudy Urine pH 7.0 Urine Specific [place] 1.015 Urine Protein Negativemg/dL (NEG-TRACE) Urine Glucose (UA) Negativemg/dL (NEG) Urine Ketones (Stick) Negativemg/dL (NEG) Urine Blood Trace (NEG) Urine Nitrite Negative (NEG) Urine Bilirubin Negative (NEG) Urine Urobilinogen Dipstick 0.2mg/dL (0.2 mg/dL) Urine Leukocyte Esterase Large (NEG) Urine RBC 3-5/HPF (0-2) Urine WBC Tntc/HPF (0-4) Urine Squamous Epithelial Cells Many/LPF Urine Amorphous Sediment Present/HPF Urine Bacteria Moderate/HPF (0-FEW) Urine Mucus Slight/LPF Urine Opiates Screen Neg (NEG) Urine Methadone Screen Neg (NEG) Urine Barbiturates Neg (NEG) Urine Phencyclidine Screen Neg (NEG) Urine Amphetamine/Methamphetamine Neg (NEG) Urine Benzodiazepines Screen Neg (NEG) Urine Cocaine Screen Neg (NEG) Urine Cannabinoids Screen Neg (NEG) Urine Ethyl Alcohol Neg (NEG) Lactic Acid Level 1.5mmol/L (0.4-2.0) Triglycerides Level 67mg/dL (0-150) Cholesterol Level 141mg/dL (0-200) LDL Cholesterol, Calculated 69mg/dL (0-100) VLDL Cholesterol, Calculated 13mg/dL (0-40) HDL Cholesterol 59mg/dL (40-60) Cholesterol/HDL Ratio 2.4 Thyroid Stimulating Hormone (TSH) 1.481uIU/mL (0.358-3.74) Creatine Kinase 3281U/L (26-192) Vitamin B12 Level 524pg/mL (247-911) Laboratory Tests Test 11/11/16 23:25 11/11/16 23:39 11/12/16 00:23 11/12/16 11:55 White Blood Count 13.3x10^3/uL (4.0-11.0) Red Blood Count 4.78x10^6/uL (3.50-5.40) Hemoglobin 13.3g/dL (12.0-15.5) Hematocrit 41.5% (36.0-47.0) Mean Corpuscular Volume 87fL (79-100) Mean Corpuscular Hemoglobin 28pg (25-35) Mean Corpuscular Hemoglobin Concent 32g/dL (31-37) Red Cell Distribution Width 14.0% (11.5-14.5) Platelet Count 284x10^3/uL (140-400) Neutrophils (%) (Auto) 72% (31-73) Lymphocytes (%) (Auto) 17% (24-48) Monocytes (%) (Auto) 11% (0-9) Eosinophils (%) (Auto) 1% (0-3) Basophils (%) (Auto) 0% (0-3) Neutrophils # (Auto) 9.5x10^3uL (1.8-7.7) Lymphocytes # (Auto) 2.2x10^3/uL (1.0-4.8) Monocytes # (Auto) 1.4x10^3/uL (0.0-1.1) Eosinophils # (Auto) 0.1x10^3/uL (0.0-0.7) Basophils # (Auto) 0.0x10^3/uL (0.0-0.2) Prothrombin Time 11.8SEC (11.7-14.0) Prothromb Time International Ratio 0.9 (0.8-1.1) Activated Partial Thromboplast Time 32SEC (24-38) Sodium Level 134mmol/L (136-145) Potassium Level 4.6mmol/L (3.5-5.1) Chloride Level 98mmol/L (98-107) Carbon Dioxide Level 26mmol/L (21-32) Anion Gap 10 (6-14) Blood Urea Nitrogen 17mg/dL (7-20) Creatinine 0.8mg/dL (0.6-1.0) Estimated GFR (Cockcroft-Gault) 69.6 BUN/Creatinine Ratio 21 (6-20) Glucose Level 129mg/dL (70-99) Calcium Level 9.2mg/dL (8.5-10.1) Total Bilirubin 0.3mg/dL (0.2-1.0) Aspartate Amino Transf (AST/SGOT) 143U/L (15-37) Alanine Aminotransferase (ALT/SGPT) 64U/L (14-59) Alkaline Phosphatase 87U/L (46-116) Troponin I Quantitative < 0.017ng/mL (0.000-0.055) YK-Bjb-[id number]-Type Natriuretic Peptide 56pg/mL (0-449) Total Protein 8.5g/dL (6.4-8.2) Albumin 3.3g/dL (3.4-5.0) Albumin/Globulin Ratio 0.6 (1.0-1.7) Urine Collection Type Unknown Urine Color Yellow Urine Clarity Cloudy Urine pH 7.0 Urine Specific [place] 1.015 Urine Protein Negativemg/dL (NEG-TRACE) Urine Glucose (UA) Negativemg/dL (NEG) Urine Ketones (Stick) Negativemg/dL (NEG) Urine Blood Trace (NEG) Urine Nitrite Negative (NEG) Urine Bilirubin Negative (NEG) Urine Urobilinogen Dipstick 0.2mg/dL (0.2 mg/dL) Urine Leukocyte Esterase Large (NEG) Urine RBC 3-5/HPF (0-2) Urine WBC Tntc/HPF (0-4) Urine Squamous Epithelial Cells Many/LPF Urine Amorphous Sediment Present/HPF Urine Bacteria Moderate/HPF (0-FEW) Urine Mucus Slight/LPF Urine Opiates Screen Neg (NEG) Urine Methadone Screen Neg (NEG) Urine Barbiturates Neg (NEG) Urine Phencyclidine Screen Neg (NEG) Urine Amphetamine/Methamphetamine Neg (NEG) Urine Benzodiazepines Screen Neg (NEG) Urine Cocaine Screen Neg (NEG) Urine Cannabinoids Screen Neg (NEG) Urine Ethyl Alcohol Neg (NEG) Lactic Acid Level 1.5mmol/L (0.4-2.0) Triglycerides Level 67mg/dL (0-150) Cholesterol Level 141mg/dL (0-200) LDL Cholesterol, Calculated 69mg/dL (0-100) VLDL Cholesterol, Calculated 13mg/dL (0-40) HDL Cholesterol 59mg/dL (40-60) Cholesterol/HDL Ratio 2.4 Thyroid Stimulating Hormone (TSH) 1.481uIU/mL (0.358-3.74) Creatine Kinase 3281U/L (26-192) Vitamin B12 Level 524pg/mL (247-911) PEDRO ROSAS MD Nov 12, 2016 17:01
[2016-11-12 19:29] VITALS: BP 155/67
[2016-11-12] MEDS: GABAPENTIN 100 MG CAPSULE. PO SCH (21:26)
[2016-11-12] MEDS: CEFTRIAXONE SODIUM 1 GM in IV NORMAL SALINE 50ML 50 ML IV SCH (21:27)
[2016-11-12 22:32] VITALS: BP 180/76
[2016-11-13 03:00] VITALS: BP 157/71
[2016-11-13 05:27] LABS: CALCIUM 8.4 mg/dL (8.5-10.1); CREATININE 0.7 mg/dL (0.6-1.0); GFR 81.1; POTASSIUM 4.4 mmol/L (3.5-5.1)
[2016-11-13 05:31] LABS: BASO % 0 % (0-3); EOS % 2 % (0-3); HEMATOCRIT 36.9 % (36.0-47.0); HEMOGLOBIN 11.9 g/dL (12.0-15.5); LYMPH # 1.5 x10^3/uL (1.0-4.8); LYMPH % 15 % (24-48); MEAN CORPUSCULAR HEMOGLOBIN 28 pg (25-35); MEAN CORPUSCULAR HGB CONC 32 g/dL (31-37); MEAN CORPUSCULAR VOLUME 87 fL (79-100); MONO % 8 % (0-9); NEUT % 74 % (31-73); PLATELET COUNT 258 x10^3/uL (140-400); RED BLOOD COUNT 4.23 x10^6/uL (3.50-5.40); RED CELL DISTRIBUTION WIDTH 14.2 % (11.5-14.5); WHITE BLOOD COUNT 9.9 x10^3/uL (4.0-11.0)
[2016-11-13] MEDS: HYDRALAZINE 25 MG TABLET PO SCH ×3 (06:34→21:13)
[2016-11-13 07:00] VITALS: BP 163/85
[2016-11-13] MEDS: DILTIAZEM HCL 240 MG CAP.ER.24H PO SCH (08:10)
[2016-11-13] MEDS: GABAPENTIN 100 MG CAPSULE. PO SCH ×3 (08:11→21:13)
[2016-11-13] MEDS: IV NORMAL SALINE 1000ML BAG 1,000 ML IV SCH ×2 (09:55→23:42)
[2016-11-13 11:11] VITALS: BP 152/75
--- NOTE | 2016-11-13 12:35 | PDOC ---
PROGRESS NOTES Chief Complaint Chief Complaint CC - Malignant Hypertension Assessment: Accelerated hypertension Left side weakness - resolving UTI Probable Metabolic Encephalopathy Possible early Dementia History of Present Illness History of Present Illness Patient was in the bathroom and had a bowel movement, she was feeling better, no acute event overnight reported. She still has weakness on her left side, PT/ OT is on, plan of care discussed with RN and Pt. Vitals Vitals Vital Signs Date Time Temp Pulse Resp B/P Pulse Ox O2 Delivery O2 Flow Rate FiO2 11/13/16 11:11 97.4 87 20 152/75 97 Nasal Cannula 97.4 Physical Exam General: Alert, Cooperative, No acute distress Heart: Regular rate (tachycardic), Normal S1, Normal S2, Other (tele: ST; no carotid bruits) Lungs: Clear Abdomen: Normal bowel sounds, Soft, No tenderness Extremities: No edema, Normal pulses Skin: No rashes Labs LABS Laboratory Tests Test 11/13/16 04:30 White Blood Count 9.9x10^3/uL (4.0-11.0) Red Blood Count 4.23x10^6/uL (3.50-5.40) Hemoglobin 11.9g/dL (12.0-15.5) Hematocrit 36.9% (36.0-47.0) Mean Corpuscular Volume 87fL (79-100) Mean Corpuscular Hemoglobin 28pg (25-35) Mean Corpuscular Hemoglobin Concent 32g/dL (31-37) Red Cell Distribution Width 14.2% (11.5-14.5) Platelet Count 258x10^3/uL (140-400) Neutrophils (%) (Auto) 74% (31-73) Lymphocytes (%) (Auto) 15% (24-48) Monocytes (%) (Auto) 8% (0-9) Eosinophils (%) (Auto) 2% (0-3) Basophils (%) (Auto) 0% (0-3) Neutrophils # (Auto) 7.3x10^3uL (1.8-7.7) Lymphocytes # (Auto) 1.5x10^3/uL (1.0-4.8) Monocytes # (Auto) 0.8x10^3/uL (0.0-1.1) Eosinophils # (Auto) 0.2x10^3/uL (0.0-0.7) Basophils # (Auto) 0.0x10^3/uL (0.0-0.2) Sodium Level 139mmol/L (136-145) Potassium Level 4.4mmol/L (3.5-5.1) Chloride Level 104mmol/L (98-107) Carbon Dioxide Level 25mmol/L (21-32) Anion Gap 10 (6-14) Blood Urea Nitrogen 13mg/dL (7-20) Creatinine 0.7mg/dL (0.6-1.0) Estimated GFR (Cockcroft-Gault) 81.1 Glucose Level 146mg/dL (70-99) Calcium Level 8.4mg/dL (8.5-10.1) Creatine Kinase 2020U/L (26-192) Review of Systems Review of Systems Denies fever, chills Denies SOB, CP has weakness in her left lower extremity Awake, alert, oriented Assessment and Plan Assessmemt and Plan CC - Malignant Hypertension Assessment: Accelerated hypertension Left side weakness - resolving UTI Probable Metabolic Encephalopathy Possible early Dementia PLAN: Continue care per floor protocol Recheck CPK in AM Recheck labs in AM NGT off per cardio recommendations Continue oral meds to control BP Continue IVF PT/OT Appreciate subspecialities inputs and recommendations Problems Medical Problems: (1) Malignant hypertension Status: Acute (2) Urinary tract infection Status: Acute (3) Weakness Status: Acute Problems: Comment Review of Relevant I have reviewed the following items jean (where applicable) has been applied. Labs Laboratory Tests Test 11/11/16 23:25 11/11/16 23:39 11/12/16 00:23 11/12/16 11:55 White Blood Count 13.3x10^3/uL (4.0-11.0) Red Blood Count 4.78x10^6/uL (3.50-5.40) Hemoglobin 13.3g/dL (12.0-15.5) Hematocrit 41.5% (36.0-47.0) Mean Corpuscular Volume 87fL (79-100) Mean Corpuscular Hemoglobin 28pg (25-35) Mean Corpuscular Hemoglobin Concent 32g/dL (31-37) Red Cell Distribution Width 14.0% (11.5-14.5) Platelet Count 284x10^3/uL (140-400) Neutrophils (%) (Auto) 72% (31-73) Lymphocytes (%) (Auto) 17% (24-48) Monocytes (%) (Auto) 11% (0-9) Eosinophils (%) (Auto) 1% (0-3) Basophils (%) (Auto) 0% (0-3) Neutrophils # (Auto) 9.5x10^3uL (1.8-7.7) Lymphocytes # (Auto) 2.2x10^3/uL (1.0-4.8) Monocytes # (Auto) 1.4x10^3/uL (0.0-1.1) Eosinophils # (Auto) 0.1x10^3/uL (0.0-0.7) Basophils # (Auto) 0.0x10^3/uL (0.0-0.2) Prothrombin Time 11.8SEC (11.7-14.0) Prothromb Time International Ratio 0.9 (0.8-1.1) Activated Partial Thromboplast Time 32SEC (24-38) Sodium Level 134mmol/L (136-145) Potassium Level 4.6mmol/L (3.5-5.1) Chloride Level 98mmol/L (98-107) Carbon Dioxide Level 26mmol/L (21-32) Anion Gap 10 (6-14) Blood Urea Nitrogen 17mg/dL (7-20) Creatinine 0.8mg/dL (0.6-1.0) Estimated GFR (Cockcroft-Gault) 69.6 BUN/Creatinine Ratio 21 (6-20) Glucose Level 129mg/dL (70-99) Calcium Level 9.2mg/dL (8.5-10.1) Total Bilirubin 0.3mg/dL (0.2-1.0) Aspartate Amino Transf (AST/SGOT) 143U/L (15-37) Alanine Aminotransferase (ALT/SGPT) 64U/L (14-59) Alkaline Phosphatase 87U/L (46-116) Troponin I Quantitative < 0.017ng/mL (0.000-0.055) FU-Pgc-T-Type Natriuretic Peptide 56pg/mL (0-449) Total Protein 8.5g/dL (6.4-8.2) Albumin 3.3g/dL (3.4-5.0) Albumin/Globulin Ratio 0.6 (1.0-1.7) Urine Collection Type Unknown Urine Color Yellow Urine Clarity Cloudy Urine pH 7.0 Urine Specific [place] 1.015 Urine Protein Negativemg/dL (NEG-TRACE) Urine Glucose (UA) Negativemg/dL (NEG) Urine Ketones (Stick) Negativemg/dL (NEG) Urine Blood Trace (NEG) Urine Nitrite Negative (NEG) Urine Bilirubin Negative (NEG) Urine Urobilinogen Dipstick 0.2mg/dL (0.2 mg/dL) Urine Leukocyte Esterase Large (NEG) Urine RBC 3-5/HPF (0-2) Urine WBC Tntc/HPF (0-4) Urine Squamous Epithelial Cells Many/LPF Urine Amorphous Sediment Present/HPF Urine Bacteria Moderate/HPF (0-FEW) Urine Mucus Slight/LPF Urine Opiates Screen Neg (NEG) Urine Methadone Screen Neg (NEG) Urine Barbiturates Neg (NEG) Urine Phencyclidine Screen Neg (NEG) Urine Amphetamine/Methamphetamine Neg (NEG) Urine Benzodiazepines Screen Neg (NEG) Urine Cocaine Screen Neg (NEG) Urine Cannabinoids Screen Neg (NEG) Urine Ethyl Alcohol Neg (NEG) Lactic Acid Level 1.5mmol/L (0.4-2.0) Triglycerides Level 67mg/dL (0-150) Cholesterol Level 141mg/dL (0-200) LDL Cholesterol, Calculated 69mg/dL (0-100) VLDL Cholesterol, Calculated 13mg/dL (0-40) HDL Cholesterol 59mg/dL (40-60) Cholesterol/HDL Ratio 2.4 Thyroid Stimulating Hormone (TSH) 1.481uIU/mL (0.358-3.74) Creatine Kinase 3281U/L (26-192) Vitamin B12 Level 524pg/mL (247-911) Test 11/13/16 04:30 White Blood Count 9.9x10^3/uL (4.0-11.0) Red Blood Count 4.23x10^6/uL (3.50-5.40) Hemoglobin 11.9g/dL (12.0-15.5) Hematocrit 36.9% (36.0-47.0) Mean Corpuscular Volume 87fL (79-100) Mean Corpuscular Hemoglobin 28pg (25-35) Mean Corpuscular Hemoglobin Concent 32g/dL (31-37) Red Cell Distribution Width 14.2% (11.5-14.5) Platelet Count 258x10^3/uL (140-400) Neutrophils (%) (Auto) 74% (31-73) Lymphocytes (%) (Auto) 15% (24-48) Monocytes (%) (Auto) 8% (0-9) Eosinophils (%) (Auto) 2% (0-3) Basophils (%) (Auto) 0% (0-3) Neutrophils # (Auto) 7.3x10^3uL (1.8-7.7) Lymphocytes # (Auto) 1.5x10^3/uL (1.0-4.8) Monocytes # (Auto) 0.8x10^3/uL (0.0-1.1) Eosinophils # (Auto) 0.2x10^3/uL (0.0-0.7) Basophils # (Auto) 0.0x10^3/uL (0.0-0.2) Sodium Level 139mmol/L (136-145) Potassium Level 4.4mmol/L (3.5-5.1) Chloride Level 104mmol/L (98-107) Carbon Dioxide Level 25mmol/L (21-32) Anion Gap 10 (6-14) Blood Urea Nitrogen 13mg/dL (7-20) Creatinine 0.7mg/dL (0.6-1.0) Estimated GFR (Cockcroft-Gault) 81.1 Glucose Level 146mg/dL (70-99) Calcium Level 8.4mg/dL (8.5-10.1) Creatine Kinase 2020U/L (26-192) Laboratory Tests Test 11/13/16 04:30 White Blood Count 9.9x10^3/uL (4.0-11.0) Red Blood Count 4.23x10^6/uL (3.50-5.40) Hemoglobin 11.9g/dL (12.0-15.5) Hematocrit 36.9% (36.0-47.0) Mean Corpuscular Volume 87fL (79-100) Mean Corpuscular Hemoglobin 28pg (25-35) Mean Corpuscular Hemoglobin Concent 32g/dL (31-37) Red Cell Distribution Width 14.2% (11.5-14.5) Platelet Count 258x10^3/uL (140-400) Neutrophils (%) (Auto) 74% (31-73) Lymphocytes (%) (Auto) 15% (24-48) Monocytes (%) (Auto) 8% (0-9) Eosinophils (%) (Auto) 2% (0-3) Basophils (%) (Auto) 0% (0-3) Neutrophils # (Auto) 7.3x10^3uL (1.8-7.7) Lymphocytes # (Auto) 1.5x10^3/uL (1.0-4.8) Monocytes # (Auto) 0.8x10^3/uL (0.0-1.1) Eosinophils # (Auto) 0.2x10^3/uL (0.0-0.7) Basophils # (Auto) 0.0x10^3/uL (0.0-0.2) Sodium Level 139mmol/L (136-145) Potassium Level 4.4mmol/L (3.5-5.1) Chloride Level 104mmol/L (98-107) Carbon Dioxide Level 25mmol/L (21-32) Anion Gap 10 (6-14) Blood Urea Nitrogen 13mg/dL (7-20) Creatinine 0.7mg/dL (0.6-1.0) Estimated GFR (Cockcroft-Gault) 81.1 Glucose Level 146mg/dL (70-99) Calcium Level 8.4mg/dL (8.5-10.1) Creatine Kinase 2020U/L (26-192) Medications Current Medications Sodium Chloride 500 ml @ 500 mls/hr 1X ONCE IV Last administered on 01:35; Start 11/12/16 at 01:00; Stop 11/12/16 at 01:59; Status DC Nitroglycerin/ Dextrose (Nitroglycerin Drip) 250 ml @ 0 mls/hr 1X ONCE IV Last administered on 11/12/16 01:35; Start 11/12/16 at 01:15; Stop 11/12/16 at 01:16; Status DC Metoprolol Tartrate 12.5 mg 12.5 mg 1X ONCE PO Last administered on 11/12/16 01:34; Start 11/12/16 at 01:15; Stop 11/12/16 at 01:16; Status DC Ceftriaxone Sodium 50 ml @ 100 mls/hr 1X ONCE IV Last administered on 01:34; Start 11/12/16 at 01:15; Stop 11/12/16 at 01:44; Status DC Ceftriaxone Sodium/Sodium Chloride (Rocephin/Iv Sodium Chloride 0.9% 50ml) 50 ml @ 100 mls/hr Q24H IV Last administered on 11/12/16 21:27; Start 11/12/16 at 21:00 Ondansetron HCl (Zofran) 4 mg PRN Q8HRS PRN IV NAUSEA/VOMITING; Start 11/12/16 at 03:00; Stop 11/13/16 at 02:59; Status DC Metoprolol Tartrate (Lopressor) 25 mg BID PO ; Start 11/12/16 at 10:30; Stop at 10:35; Status DC Hydralazine HCl (Apresoline) 10 mg PRN Q4HRS PRN IVP ELEVATED BP, SEE COMMENTS Last administered on 11/12/16 12:05; Start 11/12/16 at 10:30 Diltiazem HCl (Cardizem 24hr Cd) 180 mg DAILY PO Last administered on 11:11; Start 11/12/16 at 11:00; Stop 11/12/16 at 12:44; Status DC Diltiazem HCl (Cardizem 24hr Cd) 240 mg DAILY PO Last administered on 08:10; Start 11/13/16 at 09:00 Hydralazine HCl 25 mg 25 mg Q8HRS PO Last administered on 11/13/16 06:34; Start 11/12/16 at 14:00 Sodium Chloride (Iv Sodium Chloride 0.9% 1000ml Bag) 1,000 ml @ 100 mls/hr Q10H IV Last administered on 11/13/16 09:55; Start 11/12/16 at 13:30 Gabapentin (Neurontin) 100 mg TID PO Last administered on 11/13/16 08:11; Start 11/12/16 at 21:00 Active Scripts Active Reported No Known Medications Prior To Admisstion (Info) Each 1 Each Vitals/I & O Vital Sign - Last 24 Hours 11/12/16 11/12/16 11/12/16 11/12/16 15:55 16:19 19:29 19:30 Temp 98.2 98.5 98.2 98.5 Pulse 94 91 96 Resp 20 18 B/P 157/88 158/77 155/67 Pulse Ox 96 94 O2 Delivery Room Air Room Air Room Air 11/12/16 11/12/16 11/13/16 11/13/16 21:26 22:32 03:00 06:34 Temp 98.4 98.8 98.4 98.8 Pulse 96 100 83 93 Resp 22 16 B/P 155/67 180/76 157/71 145/71 Pulse Ox 96 97 O2 Delivery Room Air Room Air 11/13/16 11/13/16 11/13/16 11/13/16 07:00 08:00 08:10 11:11 Temp 97.9 97.4 97.9 97.4 Pulse 100 100 87 Resp 18 20 B/P 163/85 163/85 152/75 Pulse Ox 97 97 O2 Delivery Room Air Room Air Nasal Cannula Intake and Output 11/12/16 11/12/16 11/13/16 15:00 23:00 07:00 Intake Total 580.46 ml Output Total 900 ml 800 ml Balance -319.54 ml -800 ml BEAR ARIAS III DO Nov 13, 2016 12:35
--- NOTE | 2016-11-13 13:49 | PDOC ---
PROGRESS NOTES Assessment Assessment Generalized tiredness. Left LE weakness and pain. Left LE radiculopathy? Hypertensive emergency, BP 225/109-124 mmHg. HTN UTI Degenerative spine disease. Obesity. No evidence of acute CVA this time. RECOMMENDATIONS/PLAN: L-spine MRI w/wo contrast if not done yet. BP control. Continue Neurontin 100 mg tid. Treat UTI and underlying medical diseases. OT/PT. Brain MRI: Negative. Lab: TSH, Vit B12 wnl. Elevated CK. HISTORY OF THE PRESENT ILLNESS: 76-y-old AA female patient with above medical diseases and HTN that was not controlled due to her non-compliance for treatment. She developed symptoms of left LE weakness and pain for about 1 week before she was admitted into hospital. No symptoms of urinary or bowel dysfunction. Her UE and cranial nerves were nt involved. PAST MEDICAL HISTORY: Please see above. PAST SURGERY HISTORY: Appendectomy Hemorroidectomy ALLERGY: Reviewed. MEDICATIONS: Refer to [facility] FAMILY HISTORY: DM SOCIAL HISTORY: Lives at home. Denies current smoking, drinking, and illicit drug use. She smoked cigarettes in past. REVIEW OF SYSTEMS: Constitutional: No malnutrition, weight loss, cachexia. Head: No recent traumatic brain or head injury. Skin: No edema, or rash. Ear: No infection. Eyes: No vision loss or color blindness. Nose: No bleeding or purulent discharges. Hearing: No hearing decrease. Neck: No recent injury. Breast: No history of cancer, masses,or discharges. Cardiac: HTN. Pulmonary: No COPD. GI: No GI ulcer, GI bleeding. Urinary/genital: UTI. Endocrinologic: obesity Skeletomuscular: Generalized weakness tiredness. Neurological: see HP. Psychiatric: Denies drug use/abuse. Otherwise, not [id number] review of systems. PHYSICAL EXAMINATION: General appearance is in no acute distress. HEENT: Normocephalic and nontraumatic. Eyes, nose, ears, and throat are unremarkable. Neck is supple. No lymphadenopathy. No bruits are heard over the carotid artery. No crepitus. Cardiovascular: S1, S2, regular rate and rhythm. Pulmonary: Clear to auscultation bilaterally. Abdomen: Bowel sounds are positive. Abdomen is soft, nontender, and nondistended. Extremities: No rash, lesions, or edema. No restriction of range of motion NEUROLOGICAL EXAMINATION: Alert Oriented to time, place and person. PERRL. EOMI. CN: no focal findings. Muscle tone: within normal. Muscle strength: 5 right side, 3-4 left LE. DTR: 1-2 Plantar reflex: Flexor response bilaterally Gait: not examined in bed. Sensory exam: no abnormal findings on right side, pain to palpation ojn left lateral aspect of LE. No cerebellar signs elicited. F-T-N test accurate. Objective Objective Vital Signs Date Time Temp Pulse Resp B/P Pulse Ox O2 Delivery O2 Flow Rate FiO2 11/13/16 11:11 97.4 87 20 152/75 97 Nasal Cannula 97.4 Intake and Output 11/13/16 07:00 Intake Total 580.46 ml Output Total 1700 ml Balance -1119.54 ml Intake Oral 220 ml IV Total 360.46 ml Output Urine Total 1700 ml Vitals Signs Vitals VS - Last 72 Hours, by Label Date Time Temp Pulse Resp B/P Pulse Ox O2 Delivery O2 Flow Rate FiO2 11/13/16 11:11 97.4 87 20 152/75 97 Nasal Cannula 97.4 11/13/16 08:10 100 163/85 11/13/16 08:00 Room Air 11/13/16 07:00 97.9 100 18 163/85 97 Room Air 97.9 11/13/16 06:34 93 145/71 11/13/16 03:00 98.8 83 16 157/71 97 Room Air 98.8 11/12/16 22:32 98.4 100 22 180/76 96 Room Air 98.4 11/12/16 21:26 96 155/67 11/12/16 19:30 Room Air 11/12/16 19:29 98.5 96 18 155/67 94 Room Air 98.5 11/12/16 16:19 91 158/77 11/12/16 15:55 98.2 94 20 157/88 96 Room Air 98.2 11/12/16 12:05 100 191/107 11/12/16 11:11 108 176/84 11/12/16 10:42 98.0 18 176/84 97 Room Air 98.0 11/12/16 08:00 Room Air 11/12/16 07:44 98.5 90 20 188/96 96 Room Air 98.5 Laboratory Laboratory Laboratory Tests Test 11/13/16 04:30 White Blood Count 9.9x10^3/uL (4.0-11.0) Red Blood Count 4.23x10^6/uL (3.50-5.40) Hemoglobin 11.9g/dL (12.0-15.5) Hematocrit 36.9% (36.0-47.0) Mean Corpuscular Volume 87fL (79-100) Mean Corpuscular Hemoglobin 28pg (25-35) Mean Corpuscular Hemoglobin Concent 32g/dL (31-37) Red Cell Distribution Width 14.2% (11.5-14.5) Platelet Count 258x10^3/uL (140-400) Neutrophils (%) (Auto) 74% (31-73) Lymphocytes (%) (Auto) 15% (24-48) Monocytes (%) (Auto) 8% (0-9) Eosinophils (%) (Auto) 2% (0-3) Basophils (%) (Auto) 0% (0-3) Neutrophils # (Auto) 7.3x10^3uL (1.8-7.7) Lymphocytes # (Auto) 1.5x10^3/uL (1.0-4.8) Monocytes # (Auto) 0.8x10^3/uL (0.0-1.1) Eosinophils # (Auto) 0.2x10^3/uL (0.0-0.7) Basophils # (Auto) 0.0x10^3/uL (0.0-0.2) Sodium Level 139mmol/L (136-145) Potassium Level 4.4mmol/L (3.5-5.1) Chloride Level 104mmol/L (98-107) Carbon Dioxide Level 25mmol/L (21-32) Anion Gap 10 (6-14) Blood Urea Nitrogen 13mg/dL (7-20) Creatinine 0.7mg/dL (0.6-1.0) Estimated GFR (Cockcroft-Gault) 81.1 Glucose Level 146mg/dL (70-99) Calcium Level 8.4mg/dL (8.5-10.1) Creatine Kinase 2020U/L (26-192) Medication Medications Current Medications Ceftriaxone Sodium/Sodium Chloride (Rocephin/Iv Sodium Chloride 0.9% 50ml) 50 ml @ 100 mls/hr Q24H IV Last administered on 11/12/16 21:27; Start 11/12/16 at 21:00 Diltiazem HCl (Cardizem 24hr Cd) 240 mg DAILY PO Last administered on 08:10; Start 11/13/16 at 09:00 Gabapentin (Neurontin) 100 mg TID PO Last administered on 11/13/16 08:11; Start 11/12/16 at 21:00 Hydralazine HCl (Apresoline) 25 mg Q8HRS PO Last administered on 11/13/16 06: 34; Start 11/12/16 at 14:00 Comment Review of Relevant I have reviewed the following items jean (where applicable) has been applied. PEDRO ROSAS MD Nov 13, 2016 13:49
[2016-11-13 14:43] VITALS: BP 158/76
[2016-11-13] MEDS ORDERED: GADOBUTROL 10 MMOL/10 ML VIAL IV ONE (16:30)
--- NOTE | 2016-11-13 17:04 | RAD ---
PROCEDURE MRI lumbar spine with and without contrast. HISTORY Left lower extremity weakness for several days. No prior surgery. TECHNIQUE Sagittal T1, sagittal T2, sagittal STIR, axial T1, and axial T2 sequences are provided. Patient received 10 milliliters of intravenous Gadavist and post-contrast axial and sagittal imaging was performed. COMPARISON None. FINDINGS There is no malalignment. There is minimal fatty replacement of the endplates, there is no endplate edema or worrisome marrow lesion. There is mild diffuse disc desiccation. The conus medullaris is normal in signal intensity and in position. There is no pathologic enhancement. There is subcutaneous edema. Probable large cyst is partially included in the left kidney, at least 6 centimeters in size. The numbering system assumes 5 lumbar type vertebral bodies. Findings by individual level are as follows: L1-L2: There is a minimal disc bulge without canal or foraminal compromise. L2-L3: There is minimal facet hypertrophy without canal or foraminal compromise. L3-L4: A mild disc bulge and [id number] facet and ligamentum flavum hypertrophy are noted. There is minimal narrowing of the midline AP diameter of the thecal sac down to 10-11 millimeters. There is no foraminal compromise. L4-L5: Diffuse disc bulge is noted, probably with a shallow central protrusion. There is mild to moderate facet hypertrophy and mild ligamentum flavum hypertrophy on the right. Midline AP diameter of the thecal sac is narrowed to 8 millimeters. There is mild lateral recess narrowing. There is no foraminal compromise. L5-S1: Disc bulge and facet hypertrophy are noted. Disc bulge minimally contacts the S1 nerve roots, greater on the left. Foraminal narrowing is minimal. IMPRESSION Mild degenerative changes in the cervical spine, as described above. Electronically signed by: Dar Stephenson MD (Nov 13, 2016 17:03:07)
[2016-11-13 19:00] VITALS: BP 176/78
[2016-11-13] MEDS: CEFTRIAXONE SODIUM 1 GM in IV NORMAL SALINE 50ML 50 ML IV SCH (21:13)
[2016-11-13 23:00] VITALS: BP 193/86
[2016-11-14 03:00] VITALS: BP 179/85
[2016-11-14 03:51] LABS: BASO % 0 % (0-3); EOS % 2 % (0-3); HEMATOCRIT 36.9 % (36.0-47.0); HEMOGLOBIN 11.9 g/dL (12.0-15.5); LYMPH # 1.4 x10^3/uL (1.0-4.8); LYMPH % 14 % (24-48); MEAN CORPUSCULAR HEMOGLOBIN 28 pg (25-35); MEAN CORPUSCULAR HGB CONC 32 g/dL (31-37); MEAN CORPUSCULAR VOLUME 87 fL (79-100); MONO % 10 % (0-9); NEUT % 73 % (31-73); PLATELET COUNT 249 x10^3/uL (140-400); RED BLOOD COUNT 4.25 x10^6/uL (3.50-5.40); WHITE BLOOD COUNT 9.9 x10^3/uL (4.0-11.0)
[2016-11-14 04:07] LABS: CALCIUM 8.6 mg/dL (8.5-10.1); CREATININE 0.6 mg/dL (0.6-1.0); GFR 96.9
[2016-11-14] MEDS: IV NORMAL SALINE 1000ML BAG 1,000 ML IV SCH ×2 (05:30→15:30)
[2016-11-14 07:00] VITALS: BP 161/74
[2016-11-14] MEDS ORDERED: methylPREDNISolone 4 MG TABLET. PO SCH ×2 (09:00→12:30)
[2016-11-14] MEDS: GABAPENTIN 100 MG CAPSULE. PO SCH (10:12)
[2016-11-14] MEDS: DILTIAZEM HCL 240 MG CAP.ER.24H PO SCH (10:12)
[2016-11-14] MEDS: HYDRALAZINE 25 MG TABLET PO SCH ×3 (10:12→22:27)
--- NOTE | 2016-11-14 10:36 | PDOC ---
PROGRESS NOTES Chief Complaint Chief Complaint CC - Malignant Hypertension Accelerated hypertension Left side weakness - resolving UTI Probable Metabolic Encephalopathy Possible early Dementia History of Present Illness History of Present Illness Patient with no acute events overnight. Continues to report weakness of the L lower extremity. Explored the possibility that the impaired ability to lift the L leg may have a psychosomatic element. Pt reported that she has felt an increase in stress since the father of her children last February. Case discussed with RN. Vitals Vitals Vital Signs Date Time Temp Pulse Resp B/P Pulse Ox O2 Delivery O2 Flow Rate FiO2 11/14/16 10:12 98 161/74 11/14/16 07:00 97.7 22 95 Room Air 97.7 Physical Exam General: Alert, Cooperative, No acute distress Heart: Regular rate (tachycardic), Normal S1, Normal S2, Other (tele: ST; no carotid bruits) Lungs: Clear Abdomen: Normal bowel sounds, Soft, No tenderness Extremities: No edema, Normal pulses Skin: No rashes Labs LABS Laboratory Tests Test 11/14/16 03:01 White Blood Count 9.9x10^3/uL (4.0-11.0) Red Blood Count 4.25x10^6/uL (3.50-5.40) Hemoglobin 11.9g/dL (12.0-15.5) Hematocrit 36.9% (36.0-47.0) Mean Corpuscular Volume 87fL (79-100) Mean Corpuscular Hemoglobin 28pg (25-35) Mean Corpuscular Hemoglobin Concent 32g/dL (31-37) Red Cell Distribution Width 14.0% (11.5-14.5) Platelet Count 249x10^3/uL (140-400) Neutrophils (%) (Auto) 73% (31-73) Lymphocytes (%) (Auto) 14% (24-48) Monocytes (%) (Auto) 10% (0-9) Eosinophils (%) (Auto) 2% (0-3) Basophils (%) (Auto) 0% (0-3) Neutrophils # (Auto) 7.3x10^3uL (1.8-7.7) Lymphocytes # (Auto) 1.4x10^3/uL (1.0-4.8) Monocytes # (Auto) 1.0x10^3/uL (0.0-1.1) Eosinophils # (Auto) 0.2x10^3/uL (0.0-0.7) Basophils # (Auto) 0.0x10^3/uL (0.0-0.2) Sodium Level 140mmol/L (136-145) Potassium Level 4.0mmol/L (3.5-5.1) Chloride Level 105mmol/L (98-107) Carbon Dioxide Level 26mmol/L (21-32) Anion Gap 9 (6-14) Blood Urea Nitrogen 11mg/dL (7-20) Creatinine 0.6mg/dL (0.6-1.0) Estimated GFR (Cockcroft-Gault) 96.9 Glucose Level 105mg/dL (70-99) Calcium Level 8.6mg/dL (8.5-10.1) Review of Systems Review of Systems Denies fever, chills Denies SOB, CP + persistent weakness in L lower extremity Assessment and Plan Assessmemt and Plan Problems Medical Problems: (1) Malignant hypertension Status: Acute (2) Urinary tract infection Status: Acute (3) Weakness Status: Acute ASSESSMENT: Accelerated hypertension Left side weakness - resolving UTI Probable Metabolic Encephalopathy Possible early Dementia PLAN: - SNU eval - cont to treat UTI - recheck daily labs - NGT off per cardio recommendations - cont oral BP meds; BP 179/85, relatively stable - cont IVF - PT/OT - appreciate subspecialities inputs and recommendations Problems: Comment Review of Relevant I have reviewed the following items jean (where applicable) has been applied. Labs Laboratory Tests Test 11/12/16 11:55 11/13/16 04:30 11/14/16 03:01 Creatine Kinase 3281U/L (26-192) 2020U/L (26-192) Vitamin B12 Level 524pg/mL (247-911) White Blood Count 9.9x10^3/uL (4.0-11.0) 9.9x10^3/uL (4.0-11.0) Red Blood Count 4.23x10^6/uL (3.50-5.40) 4.25x10^6/uL (3.50-5.40) Hemoglobin 11.9g/dL (12.0-15.5) 11.9g/dL (12.0-15.5) Hematocrit 36.9% (36.0-47.0) 36.9% (36.0-47.0) Mean Corpuscular Volume 87fL (79-100) 87fL (79-100) Mean Corpuscular Hemoglobin 28pg (25-35) 28pg (25-35) Mean Corpuscular Hemoglobin Concent 32g/dL (31-37) 32g/dL (31-37) Red Cell Distribution Width 14.2% (11.5-14.5) 14.0% (11.5-14.5) Platelet Count 258x10^3/uL (140-400) 249x10^3/uL (140-400) Neutrophils (%) (Auto) 74% (31-73) 73% (31-73) Lymphocytes (%) (Auto) 15% (24-48) 14% (24-48) Monocytes (%) (Auto) 8% (0-9) 10% (0-9) Eosinophils (%) (Auto) 2% (0-3) 2% (0-3) Basophils (%) (Auto) 0% (0-3) 0% (0-3) Neutrophils # (Auto) 7.3x10^3uL (1.8-7.7) 7.3x10^3uL (1.8-7.7) Lymphocytes # (Auto) 1.5x10^3/uL (1.0-4.8) 1.4x10^3/uL (1.0-4.8) Monocytes # (Auto) 0.8x10^3/uL (0.0-1.1) 1.0x10^3/uL (0.0-1.1) Eosinophils # (Auto) 0.2x10^3/uL (0.0-0.7) 0.2x10^3/uL (0.0-0.7) Basophils # (Auto) 0.0x10^3/uL (0.0-0.2) 0.0x10^3/uL (0.0-0.2) Sodium Level 139mmol/L (136-145) 140mmol/L (136-145) Potassium Level 4.4mmol/L (3.5-5.1) 4.0mmol/L (3.5-5.1) Chloride Level 104mmol/L (98-107) 105mmol/L (98-107) Carbon Dioxide Level 25mmol/L (21-32) 26mmol/L (21-32) Anion Gap 10 (6-14) 9 (6-14) Blood Urea Nitrogen 13mg/dL (7-20) 11mg/dL (7-20) Creatinine 0.7mg/dL (0.6-1.0) 0.6mg/dL (0.6-1.0) Estimated GFR (Cockcroft-Gault) 81.1 96.9 Glucose Level 146mg/dL (70-99) 105mg/dL (70-99) Calcium Level 8.4mg/dL (8.5-10.1) 8.6mg/dL (8.5-10.1) Laboratory Tests Test 11/14/16 03:01 White Blood Count 9.9x10^3/uL (4.0-11.0) Red Blood Count 4.25x10^6/uL (3.50-5.40) Hemoglobin 11.9g/dL (12.0-15.5) Hematocrit 36.9% (36.0-47.0) Mean Corpuscular Volume 87fL (79-100) Mean Corpuscular Hemoglobin 28pg (25-35) Mean Corpuscular Hemoglobin Concent 32g/dL (31-37) Red Cell Distribution Width 14.0% (11.5-14.5) Platelet Count 249x10^3/uL (140-400) Neutrophils (%) (Auto) 73% (31-73) Lymphocytes (%) (Auto) 14% (24-48) Monocytes (%) (Auto) 10% (0-9) Eosinophils (%) (Auto) 2% (0-3) Basophils (%) (Auto) 0% (0-3) Neutrophils # (Auto) 7.3x10^3uL (1.8-7.7) Lymphocytes # (Auto) 1.4x10^3/uL (1.0-4.8) Monocytes # (Auto) 1.0x10^3/uL (0.0-1.1) Eosinophils # (Auto) 0.2x10^3/uL (0.0-0.7) Basophils # (Auto) 0.0x10^3/uL (0.0-0.2) Sodium Level 140mmol/L (136-145) Potassium Level 4.0mmol/L (3.5-5.1) Chloride Level 105mmol/L (98-107) Carbon Dioxide Level 26mmol/L (21-32) Anion Gap 9 (6-14) Blood Urea Nitrogen 11mg/dL (7-20) Creatinine 0.6mg/dL (0.6-1.0) Estimated GFR (Cockcroft-Gault) 96.9 Glucose Level 105mg/dL (70-99) Calcium Level 8.6mg/dL (8.5-10.1) Medications Current Medications Sodium Chloride 500 ml @ 500 mls/hr 1X ONCE IV Last administered on 01:35; Start 11/12/16 at 01:00; Stop 11/12/16 at 01:59; Status DC Nitroglycerin/ Dextrose (Nitroglycerin Drip) 250 ml @ 0 mls/hr 1X ONCE IV Last administered on 11/12/16 01:35; Start 11/12/16 at 01:15; Stop 11/12/16 at 01:16; Status DC Metoprolol Tartrate 12.5 mg 12.5 mg 1X ONCE PO Last administered on 11/12/16 01:34; Start 11/12/16 at 01:15; Stop 11/12/16 at 01:16; Status DC Ceftriaxone Sodium 50 ml @ 100 mls/hr 1X ONCE IV Last administered on 01:34; Start 11/12/16 at 01:15; Stop 11/12/16 at 01:44; Status DC Ceftriaxone Sodium/Sodium Chloride (Rocephin/Iv Sodium Chloride 0.9% 50ml) 50 ml @ 100 mls/hr Q24H IV Last administered on 11/13/16 21:13; Start 11/12/16 at 21:00 Ondansetron HCl (Zofran) 4 mg PRN Q8HRS PRN IV NAUSEA/VOMITING; Start 11/12/16 at 03:00; Stop 11/13/16 at 02:59; Status DC Metoprolol Tartrate (Lopressor) 25 mg BID PO ; Start 11/12/16 at 10:30; Stop at 10:35; Status DC Hydralazine HCl (Apresoline) 10 mg PRN Q4HRS PRN IVP ELEVATED BP, SEE COMMENTS Last administered on 11/12/16 12:05; Start 11/12/16 at 10:30 Diltiazem HCl (Cardizem 24hr Cd) 180 mg DAILY PO Last administered on 11:11; Start 11/12/16 at 11:00; Stop 11/12/16 at 12:44; Status DC Diltiazem HCl (Cardizem 24hr Cd) 240 mg DAILY PO Last administered on 10:12; Start 11/13/16 at 09:00 Hydralazine HCl 25 mg 25 mg Q8HRS PO Last administered on 11/14/16 10:12; Start 11/12/16 at 14:00 Sodium Chloride (Iv Sodium Chloride 0.9% 1000ml Bag) 1,000 ml @ 100 mls/hr Q10H IV Last administered on 11/13/16 23:42; Start 11/12/16 at 13:30 Gabapentin (Neurontin) 100 mg TID PO Last administered on 11/14/16 10:12; Start 11/12/16 at 21:00 Gadobutrol (Gadavist) 10 mmol 1X ONCE IV Last administered on 11/13/16 16:44 ; Start 11/13/16 at 16:30; Stop 11/13/16 at 16:31; Status DC Active Scripts Active Reported No Known Medications Prior To Admisstion (Info) Each 1 Each Vitals/I & O Vital Sign - Last 24 Hours 11/13/16 11/13/16 11/13/16 11/13/16 11:11 13:56 14:43 19:00 Temp 97.4 97.4 97.8 97.4 97.4 97.8 Pulse 87 95 96 98 Resp 20 18 20 B/P 152/75 186/84 158/76 176/78 Pulse Ox 97 95 97 O2 Delivery Nasal Cannula Room Air Room Air 11/13/16 11/13/16 11/13/16 11/14/16 20:00 21:13 23:00 03:00 Temp 98.2 98.4 98.2 98.4 Pulse 98 101 96 Resp 24 20 B/P 176/78 193/86 179/85 Pulse Ox 95 96 O2 Delivery Room Air Room Air Room Air 11/14/16 11/14/16 11/14/16 07:00 10:12 10:12 Temp 97.7 97.7 Pulse 98 98 98 Resp 22 B/P 161/74 161/74 161/74 Pulse Ox 95 O2 Delivery Room Air Intake and Output 11/13/16 11/13/16 11/14/16 15:00 23:00 07:00 Intake Total 110 ml 970 ml 1800 ml Output Total 900 ml 700 ml 1350 ml Balance -790 ml 270 ml 450 ml BEAR ARIAS III DO Nov 14, 2016 10:36
[2016-11-14 11:00] VITALS: BP 210/100
--- NOTE | 2016-11-14 13:38 | PDOC ---
PROGRESS NOTES Assessment Assessment Generalized tiredness. Left LE weakness and pain. Left S1 radiculopathy. Hypertensive emergency, BP 225/109-124 mmHg. HTN UTI Degenerative spine disease. Obesity. No evidence of acute CVA this time. RECOMMENDATIONS/PLAN: BP control. Continue Neurontin, increase to 300 mg tid. Treat UTI and underlying medical diseases. Patient declined NS consult and possible surgical treatment. Please consult Dr. Melton. OT/PT. Brain MRI: Negative. L-spine MRI: Disc bulging touching left S1 nerve root. Lab: TSH, Vit B12 wnl. Elevated CK. HISTORY OF THE PRESENT ILLNESS: 76-y-old AA female patient with above medical diseases and HTN that was not controlled due to her non-compliance for treatment. She developed symptoms of left LE weakness and pain for about 1 week before she was admitted into hospital. No symptoms of urinary or bowel dysfunction. Her UE and cranial nerves were nt involved. PAST MEDICAL HISTORY: Please see above. PAST SURGERY HISTORY: Appendectomy Hemorroidectomy ALLERGY: Reviewed. MEDICATIONS: Refer to [facility] FAMILY HISTORY: DM SOCIAL HISTORY: Lives at home. Denies current smoking, drinking, and illicit drug use. She smoked cigarettes in past. REVIEW OF SYSTEMS: Constitutional: No malnutrition, weight loss, cachexia. Head: No recent traumatic brain or head injury. Skin: No edema, or rash. Ear: No infection. Eyes: No vision loss or color blindness. Nose: No bleeding or purulent discharges. Hearing: No hearing decrease. Neck: No recent injury. Breast: No history of cancer, masses,or discharges. Cardiac: HTN. Pulmonary: No COPD. GI: No GI ulcer, GI bleeding. Urinary/genital: UTI. Endocrinologic: obesity Skeletomuscular: Generalized weakness tiredness. Neurological: see HP. Psychiatric: Denies drug use/abuse. Otherwise, not [id number] review of systems. PHYSICAL EXAMINATION: General appearance is in no acute distress. HEENT: Normocephalic and nontraumatic. Eyes, nose, ears, and throat are unremarkable. Neck is supple. No lymphadenopathy. No bruits are heard over the carotid artery. No crepitus. Cardiovascular: S1, S2, regular rate and rhythm. Pulmonary: Clear to auscultation bilaterally. Abdomen: Bowel sounds are positive. Abdomen is soft, nontender, and nondistended. Extremities: No rash, lesions, or edema. No restriction of range of motion NEUROLOGICAL EXAMINATION: Alert Oriented to time, place and person. PERRL. EOMI. CN: no focal findings. Muscle tone: within normal. Muscle strength: 5 right side, 3-4 left LE. DTR: 1-2 Plantar reflex: Flexor response bilaterally Gait: difficult to walk. Sensory exam: no abnormal findings on right side, pain to palpation ojn left lateral aspect of LE. No cerebellar signs elicited. F-T-N test accurate. Objective Objective Vital Signs Date Time Temp Pulse Resp B/P Pulse Ox O2 Delivery O2 Flow Rate FiO2 11/14/16 11:00 98.3 100 22 210/100 97 Room Air 98.3 Intake and Output 11/14/16 07:00 Intake Total 2880 ml Output Total 2950 ml Balance -70 ml Intake Oral 1810 ml IV Total 1070 ml Output Urine Total 2950 ml # Bowel Movements 1 Vitals Signs Vitals VS - Last 72 Hours, by Label Date Time Temp Pulse Resp B/P Pulse Ox O2 Delivery O2 Flow Rate FiO2 11/14/16 11:00 98.3 100 22 210/100 97 Room Air 98.3 11/14/16 10:12 98 161/74 11/14/16 10:12 98 161/74 11/14/16 08:00 Room Air 11/14/16 07:00 97.7 98 22 161/74 95 Room Air 97.7 11/14/16 03:00 98.4 96 20 179/85 96 Room Air 98.4 11/13/16 23:00 98.2 101 24 193/86 95 Room Air 98.2 11/13/16 21:13 98 176/78 11/13/16 20:00 Room Air 11/13/16 19:00 97.8 98 20 176/78 97 Room Air 97.8 11/13/16 14:43 97.4 96 18 158/76 95 Room Air 97.4 11/13/16 13:56 95 186/84 11/13/16 11:11 97.4 87 20 152/75 97 Nasal Cannula 97.4 11/13/16 08:10 100 163/85 11/13/16 08:00 Room Air 11/13/16 07:00 97.9 100 18 163/85 97 Room Air 97.9 Laboratory Laboratory Laboratory Tests Test 11/14/16 03:01 White Blood Count 9.9x10^3/uL (4.0-11.0) Red Blood Count 4.25x10^6/uL (3.50-5.40) Hemoglobin 11.9g/dL (12.0-15.5) Hematocrit 36.9% (36.0-47.0) Mean Corpuscular Volume 87fL (79-100) Mean Corpuscular Hemoglobin 28pg (25-35) Mean Corpuscular Hemoglobin Concent 32g/dL (31-37) Red Cell Distribution Width 14.0% (11.5-14.5) Platelet Count 249x10^3/uL (140-400) Neutrophils (%) (Auto) 73% (31-73) Lymphocytes (%) (Auto) 14% (24-48) Monocytes (%) (Auto) 10% (0-9) Eosinophils (%) (Auto) 2% (0-3) Basophils (%) (Auto) 0% (0-3) Neutrophils # (Auto) 7.3x10^3uL (1.8-7.7) Lymphocytes # (Auto) 1.4x10^3/uL (1.0-4.8) Monocytes # (Auto) 1.0x10^3/uL (0.0-1.1) Eosinophils # (Auto) 0.2x10^3/uL (0.0-0.7) Basophils # (Auto) 0.0x10^3/uL (0.0-0.2) Sodium Level 140mmol/L (136-145) Potassium Level 4.0mmol/L (3.5-5.1) Chloride Level 105mmol/L (98-107) Carbon Dioxide Level 26mmol/L (21-32) Anion Gap 9 (6-14) Blood Urea Nitrogen 11mg/dL (7-20) Creatinine 0.6mg/dL (0.6-1.0) Estimated GFR (Cockcroft-Gault) 96.9 Glucose Level 105mg/dL (70-99) Calcium Level 8.6mg/dL (8.5-10.1) Medication Medications Current Medications Gadobutrol (Gadavist) 10 mmol 1X ONCE IV Last administered on 11/13/16t 16:44 ; Start 11/13/16 at 16:30; Stop 11/13/16 at 16:31; Status DC Comment Review of Relevant I have reviewed the following items jean (where applicable) has been applied. PEDRO ROSAS MD Nov 14, 2016 13:38
[2016-11-14 14:24] VITALS: BP 147/88
[2016-11-14] MEDS: GABAPENTIN 300 MG CAPSULE. PO SCH ×2 (16:07→20:54)
[2016-11-14 19:00] VITALS: BP 156/83
[2016-11-14] MEDS ORDERED: PANTOPRAZOLE 40 MG TABLET. PO SCH (19:10)
[2016-11-14] MEDS: CEFTRIAXONE SODIUM 1 GM in IV NORMAL SALINE 50ML 50 ML IV SCH (20:54)
[2016-11-15] VITALS (7 sets, daily range): BP systolic 119–174; BP diastolic 63–86
[2016-11-15] MEDS ORDERED: methylPREDNISolone 4 MG TABLET. PO ONE (00:30)
[2016-11-15] MEDS: IV NORMAL SALINE 1000ML BAG 1,000 ML IV SCH ×3 (01:30→23:29)
--- NOTE | 2016-11-15 03:23 | CONS ---
DATE OF CONSULTATION: ATTENDING PHYSICIAN: Dr. Mcgee. The patient was seen at the request of Dr. Hall for rehab evaluation. HISTORY OF PRESENT ILLNESS: This is a 76-year-old female admitted with left lower extremity weakness going on recently and she denies any back pain. She fell at home. The patient with history of fibromyalgia. The patient also was noted in the Emergency Room with malignant hypertension. The patient with history of early dementia, hypertension, noncompliance. ALLERGIES: Not known allergic to any medication. FAMILY HISTORY: Coronary artery disease. She lives with her son in a [place], [place] home, multilevel, lots of stairs to manage. The patient had no railing or the steps from the back or front. The patient had radiological studies including CT scan of the brain, which failed to reveal any acute abnormality, it revealed chronic small vessel ischemic disease. MRI scan of the brain revealed brain parenchymal volume loss and mild probably small vessel ischemic disease. Lumbar spine MRI scan done yesterday revealed mild degenerative disk disease with associated facet hypertrophic changes and shallow central protrusion of L4-L5 disk. The patient is being seen by Neurology. As per Dr. Hall's note, she declined a neurosurgical consult and possible surgical treatment. Dr. Hall diagnosed her as having left S1 radiculopathy. She is also being treated for urinary tract infection. The patient is being followed by Physical Therapy, as per their note, apparently they are not following her secondary to her blood pressure being 200/106. The patient denies any headache or any pain. She denies any trouble with swallowing, speech, or bowel or bladder control difficulties. The patient prior to the present hospitalization has been independent with her mobility and self-care skills, not using any assistive devices. PHYSICAL EXAMINATION: Today revealed an elderly female. She is alert, oriented to place and person, follows commands appropriately, moves all 4 extremities voluntarily. She had significant weakness of left hip flexor, knee flexor and left foot dorsiflexor, where she had only 2-/5 grade muscle strength. In other left lower extremity muscles and right lower extremity and both upper extremities muscle groups she had 4+/5 grade muscle strength. Deep tendon reflexes are 1 to 2+ and symmetrical and she had equal perception of touch and pinprick sensation bilaterally. She had no tenderness to palpation over cervical, thoracic or lumbar spine area. Straight leg raising test is negative bilaterally. She had pain free range of motion of her hips. She had crepitus on range of motion of both knee joints without any obvious knee joint effusion. I have not tested her transfers or ambulation skills at this time. She is independent with rolling from side to side. Her skin is intact at this time. No cervical, thoracic or lumbar paraspinal muscle spasm was noted at this time. No tenderness to palpation over trochanteric bursa area. She had equal perception of touch and pinprick sensation bilaterally. ASSESSMENT: An elderly female with left lower extremity antigravity muscle weakness mainly hip flexors, knee flexors and left foot dorsiflexor. She had mild degenerative disk disease of lumbar vertebrae, but no clinical evidence of left lumbar radiculopathy. No clinical evidence of lower back pain. She had obesity, hypertension and degenerative joint disease of her knees. RECOMMENDATION: To start her on Medrol Dosepak. To make sure the disk bulging is not causing her weakness, to ask for a neurosurgical consultation, though she is not interested in any surgery. To obtain her left ankle foot brace. To consider transfer to inpatient rehab unit or [facility] care unit for continued care when medically stable. Dr. Hall and Dr. Mcgee, I appreciate asking me to participate in the care of this interesting patient. I will be glad to follow her with you as needed for her rehabilitation. RAZ PERKINS MD DR: NAINA/lorenzo JOB#: [id number] / [id number]
[2016-11-15 05:35] LABS: BASO % 0 % (0-3); EOS % 0 % (0-3); HEMATOCRIT 38.1 % (36.0-47.0); HEMOGLOBIN 12.5 g/dL (12.0-15.5); LYMPH # 0.8 x10^3/uL (1.0-4.8); LYMPH % 8 % (24-48); MEAN CORPUSCULAR HEMOGLOBIN 28 pg (25-35); MEAN CORPUSCULAR HGB CONC 33 g/dL (31-37); MEAN CORPUSCULAR VOLUME 85 fL (79-100); MONO % 1 % (0-9); NEUT % 91 % (31-73); PLATELET COUNT 286 x10^3/uL (140-400); RED BLOOD COUNT 4.47 x10^6/uL (3.50-5.40); RED CELL DISTRIBUTION WIDTH 14.4 % (11.5-14.5); WHITE BLOOD COUNT 10.1 x10^3/uL (4.0-11.0)
[2016-11-15 05:45] LABS: CALCIUM 8.9 mg/dL (8.5-10.1); CREATININE 0.8 mg/dL (0.6-1.0); GFR 69.6; POTASSIUM 4.4 mmol/L (3.5-5.1)
[2016-11-15] MEDS: HYDRALAZINE 25 MG TABLET PO SCH ×3 (06:00→23:29)
[2016-11-15 07:17] LABS: PLT ESTIMATE ADEQUATE (ADEQUATE)
[2016-11-15] MEDS: PANTOPRAZOLE 40 MG TABLET.DR. PO SCH (07:30)
[2016-11-15] MEDS: GABAPENTIN 300 MG CAPSULE. PO SCH ×3 (09:00→21:09)
[2016-11-15] MEDS: DILTIAZEM HCL 240 MG CAP.ER.24H PO SCH (09:44)
[2016-11-15] MEDS: methylPREDNISolone 4 MG TABLET. PO SCH ×3 (09:45→17:30)
--- NOTE | 2016-11-15 10:33 | PDOC ---
PROGRESS NOTES Subjective Subjective She continues with left lower extremity weakness. Objective Objective Vital Signs Date Time Temp Pulse Resp B/P Pulse Ox O2 Delivery O2 Flow Rate FiO2 11/15/16 09:44 114 149/73 11/15/16 07:00 97.7 18 98 Room Air 97.7 Intake and Output 11/15/16 07:00 Intake Total 660 ml Output Total 1850 ml Balance -1190 ml Intake Oral 660 ml Output Urine Total 1850 ml # Voids 2 # Bowel Movements 1 Physical Exam Physical Exam She is alert and comfortable and continues with weakness of left hip,knee flexors and dorsiflexor muscles of left ankle. Assessment Assessment Problems Medical Problems: (1) Malignant hypertension Status: Acute (2) Urinary tract infection Status: Acute (3) Weakness Status: Acute Plan Plan of Care Await neurosurgical advise and to get her left AFO. Comment Review of Relevant I have reviewed the following items jean (where applicable) has been applied. Labs Laboratory Tests Test 11/14/16 03:01 11/15/16 05:15 White Blood Count 9.9x10^3/uL (4.0-11.0) 10.1x10^3/uL (4.0-11.0) Red Blood Count 4.25x10^6/uL (3.50-5.40) 4.47x10^6/uL (3.50-5.40) Hemoglobin 11.9g/dL (12.0-15.5) 12.5g/dL (12.0-15.5) Hematocrit 36.9% (36.0-47.0) 38.1% (36.0-47.0) Mean Corpuscular Volume 87fL (79-100) 85fL (79-100) Mean Corpuscular Hemoglobin 28pg (25-35) 28pg (25-35) Mean Corpuscular Hemoglobin Concent 32g/dL (31-37) 33g/dL (31-37) Red Cell Distribution Width 14.0% (11.5-14.5) 14.4% (11.5-14.5) Platelet Count 249x10^3/uL (140-400) 286x10^3/uL (140-400) Neutrophils (%) (Auto) 73% (31-73) 91% (31-73) Lymphocytes (%) (Auto) 14% (24-48) 8% (24-48) Monocytes (%) (Auto) 10% (0-9) 1% (0-9) Eosinophils (%) (Auto) 2% (0-3) 0% (0-3) Basophils (%) (Auto) 0% (0-3) 0% (0-3) Neutrophils # (Auto) 7.3x10^3uL (1.8-7.7) 9.2x10^3uL (1.8-7.7) Lymphocytes # (Auto) 1.4x10^3/uL (1.0-4.8) 0.8x10^3/uL (1.0-4.8) Monocytes # (Auto) 1.0x10^3/uL (0.0-1.1) 0.1x10^3/uL (0.0-1.1) Eosinophils # (Auto) 0.2x10^3/uL (0.0-0.7) 0.0x10^3/uL (0.0-0.7) Basophils # (Auto) 0.0x10^3/uL (0.0-0.2) 0.0x10^3/uL (0.0-0.2) Sodium Level 140mmol/L (136-145) 134mmol/L (136-145) Potassium Level 4.0mmol/L (3.5-5.1) 4.4mmol/L (3.5-5.1) Chloride Level 105mmol/L (98-107) 99mmol/L (98-107) Carbon Dioxide Level 26mmol/L (21-32) 26mmol/L (21-32) Anion Gap 9 (6-14) 9 (6-14) Blood Urea Nitrogen 11mg/dL (7-20) 11mg/dL (7-20) Creatinine 0.6mg/dL (0.6-1.0) 0.8mg/dL (0.6-1.0) Estimated GFR (Cockcroft-Gault) 96.9 69.6 Glucose Level 105mg/dL (70-99) 150mg/dL (70-99) Calcium Level 8.6mg/dL (8.5-10.1) 8.9mg/dL (8.5-10.1) Segmented Neutrophils % 94% (35-66) Lymphocytes % 4% (24-48) Monocytes % 2% (0-10) Platelet Estimate Adequate (ADEQUATE) Laboratory Tests Test 11/15/16 05:15 White Blood Count 10.1x10^3/uL (4.0-11.0) Red Blood Count 4.47x10^6/uL (3.50-5.40) Hemoglobin 12.5g/dL (12.0-15.5) Hematocrit 38.1% (36.0-47.0) Mean Corpuscular Volume 85fL (79-100) Mean Corpuscular Hemoglobin 28pg (25-35) Mean Corpuscular Hemoglobin Concent 33g/dL (31-37) Red Cell Distribution Width 14.4% (11.5-14.5) Platelet Count 286x10^3/uL (140-400) Neutrophils (%) (Auto) 91% (31-73) Lymphocytes (%) (Auto) 8% (24-48) Monocytes (%) (Auto) 1% (0-9) Eosinophils (%) (Auto) 0% (0-3) Basophils (%) (Auto) 0% (0-3) Neutrophils # (Auto) 9.2x10^3uL (1.8-7.7) Lymphocytes # (Auto) 0.8x10^3/uL (1.0-4.8) Monocytes # (Auto) 0.1x10^3/uL (0.0-1.1) Eosinophils # (Auto) 0.0x10^3/uL (0.0-0.7) Basophils # (Auto) 0.0x10^3/uL (0.0-0.2) Segmented Neutrophils % 94% (35-66) Lymphocytes % 4% (24-48) Monocytes % 2% (0-10) Platelet Estimate Adequate (ADEQUATE) Sodium Level 134mmol/L (136-145) Potassium Level 4.4mmol/L (3.5-5.1) Chloride Level 99mmol/L (98-107) Carbon Dioxide Level 26mmol/L (21-32) Anion Gap 9 (6-14) Blood Urea Nitrogen 11mg/dL (7-20) Creatinine 0.8mg/dL (0.6-1.0) Estimated GFR (Cockcroft-Gault) 69.6 Glucose Level 150mg/dL (70-99) Calcium Level 8.9mg/dL (8.5-10.1) Microbiology 11/12/16 Urine Culture - Final, Complete 11/12/16 Urine Culture Result 1 (GÓMEZ) - Final, Complete Medications Current Medications Sodium Chloride 500 ml @ 500 mls/hr 1X ONCE IV Last administered on 01:35; Start 11/12/16 at 01:00; Stop 11/12/16 at 01:59; Status DC Nitroglycerin/ Dextrose (Nitroglycerin Drip) 250 ml @ 0 mls/hr 1X ONCE IV Last administered on 11/12/16 01:35; Start 11/12/16 at 01:15; Stop 11/12/16 at 01:16; Status DC Metoprolol Tartrate 12.5 mg 12.5 mg 1X ONCE PO Last administered on 11/12/16 01:34; Start 11/12/16 at 01:15; Stop 11/12/16 at 01:16; Status DC Ceftriaxone Sodium 50 ml @ 100 mls/hr 1X ONCE IV Last administered on 01:34; Start 11/12/16 at 01:15; Stop 11/12/16 at 01:44; Status DC Ceftriaxone Sodium/Sodium Chloride (Rocephin/Iv Sodium Chloride 0.9% 50ml) 50 ml @ 100 mls/hr Q24H IV Last administered on 11/14/16 20:54; Start 11/12/16 at 21:00 Ondansetron HCl (Zofran) 4 mg PRN Q8HRS PRN IV NAUSEA/VOMITING; Start 11/12/16 at 03:00; Stop 11/13/16 at 02:59; Status DC Metoprolol Tartrate (Lopressor) 25 mg BID PO ; Start 11/12/16 at 10:30; Stop at 10:35; Status DC Hydralazine HCl (Apresoline) 10 mg PRN Q4HRS PRN IVP ELEVATED BP, SEE COMMENTS Last administered on 11/12/16 12:05; Start 11/12/16 at 10:30 Diltiazem HCl (Cardizem 24hr Cd) 180 mg DAILY PO Last administered on 11:11; Start 11/12/16 at 11:00; Stop 11/12/16 at 12:44; Status DC Diltiazem HCl (Cardizem 24hr Cd) 240 mg DAILY PO Last administered on 09:44; Start 11/13/16 at 09:00 Hydralazine HCl 25 mg 25 mg Q8HRS PO Last administered on 11/15/16 06:00; Start 11/12/16 at 14:00 Sodium Chloride (Iv Sodium Chloride 0.9% 1000ml Bag) 1,000 ml @ 100 mls/hr Q10H IV Last administered on 11/13/16 23:42; Start 11/12/16 at 13:30 Gabapentin (Neurontin) 100 mg TID PO Last administered on 11/14/16 10:12; Start 11/12/16 at 21:00; Stop 11/14/16 at 13:40; Status DC Gadobutrol (Gadavist) 10 mmol 1X ONCE IV Last administered on 11/13/16 16:44 ; Start 11/13/16 at 16:30; Stop 11/13/16 at 16:31; Status DC Gabapentin (Neurontin) 300 mg TID PO Last administered on 11/14/16 20:54; Start 11/14/16 at 14:00 Methylprednisolone (Medrol) 8 mg BID PO ; Start 11/14/16 at 09:00; Stop at 21:01; Status Cancel Methylprednisolone (Medrol) 4 mg BIDPCLD PO ; Start 11/14/16 at 12:30; Stop at 17:31; Status Cancel Methylprednisolone (Medrol) 4 mg TIDPC PO Last administered on 11/15/16 09:45 ; Start 11/15/16 at 08:30; Stop 11/15/16 at 17:31 Methylprednisolone (Medrol) 8 mg QHS PO ; Start 11/15/16 at 21:00; Stop at 21:01 Methylprednisolone (Medrol) 4 mg QIDAFTMEAL PO ; Start 11/16/16 at 09:00; Stop at 21:01 Methylprednisolone (Medrol) 4 mg TID PO ; Start 11/17/16 at 09:00; Stop 11/17/16 at 21:01 Methylprednisolone (Medrol) 4 mg BID PO ; Start 11/18/16 at 09:00; Stop 11/18/16 at 21:01 Methylprednisolone (Medrol) 4 mg DAILY PO ; Start 11/19/16 at 09:00; Stop at 09:01 Pantoprazole Sodium (Protonix) 40 mg DAILYAC PO ; Start 11/14/16 at 19:10; Stop 11/15/16 at 05:25; Status DC Methylprednisolone (Medrol) 24 mg 1X ONCE PO Last administered on 11/15/16t 00 :28; Start 11/15/16 at 00:30; Stop 11/15/16 at 00:31; Status DC Pantoprazole Sodium (Protonix) 40 mg DAILYAC PO ; Start 11/15/16 at 05:25 Active Scripts Active Reported No Known Medications Prior To Admisstion (Info) Each 1 Each Vitals/I & O Vital Sign - Last 24 Hours 11/14/16 11/14/16 11/14/16 11/14/16 11:00 14:24 16:08 19:00 Temp 98.3 98.3 97.4 98.3 98.3 97.4 Pulse 100 96 96 107 Resp 22 20 18 B/P 210/100 147/88 161/81 156/83 Pulse Ox 97 95 97 O2 Delivery Room Air Room Air Room Air 11/14/16 11/14/16 11/14/16 11/15/16 20:00 22:27 23:00 03:14 Temp 99.5 99.5 Pulse 107 105 Resp 18 B/P 156/83 136/63 Pulse Ox 90 O2 Delivery Room Air Room Air Room Air 11/15/16 11/15/16 11/15/16 11/15/16 05:43 06:00 07:00 09:44 Temp 99.4 97.7 99.4 97.7 Pulse 102 102 78 114 Resp 18 18 B/P 146/79 146/79 124/80 149/73 Pulse Ox 95 98 O2 Delivery Room Air Room Air Intake and Output 11/14/16 11/14/16 11/15/16 15:00 23:00 07:00 Intake Total 600 ml 60 ml Output Total 1850 ml Balance -1850 ml 600 ml 60 ml RAZ PERKINS MD Nov 15, 2016 10:33
--- NOTE | 2016-11-15 11:35 | PDOC ---
PROGRESS NOTES Chief Complaint Chief Complaint CC - Malignant Hypertension A/P Accelerated hypertension Left LE weakness and pain. Left S1 radiculopathy. Degenerative spine disease. Obesity. Plan BP control PT/OT, high risk for fall, may need SNU, Pt declined to see NS Labs reviewed UA reviewed SW to find SNU placement. , History of Present Illness History of Present Illness physically weak no fever Vitals Vitals Vital Signs Date Time Temp Pulse Resp B/P Pulse Ox O2 Delivery O2 Flow Rate FiO2 11/15/16 11:00 96.6 90 18 119/69 94 Room Air 96.6 Physical Exam General: Alert, Cooperative, No acute distress Heart: Regular rate (tachycardic), Normal S1, Normal S2, Other Lungs: Clear Abdomen: Normal bowel sounds, Soft, No tenderness Extremities: No edema, Normal pulses Skin: No rashes Labs LABS Laboratory Tests Test 11/15/16 05:15 White Blood Count 10.1x10^3/uL (4.0-11.0) Red Blood Count 4.47x10^6/uL (3.50-5.40) Hemoglobin 12.5g/dL (12.0-15.5) Hematocrit 38.1% (36.0-47.0) Mean Corpuscular Volume 85fL (79-100) Mean Corpuscular Hemoglobin 28pg (25-35) Mean Corpuscular Hemoglobin Concent 33g/dL (31-37) Red Cell Distribution Width 14.4% (11.5-14.5) Platelet Count 286x10^3/uL (140-400) Neutrophils (%) (Auto) 91% (31-73) Lymphocytes (%) (Auto) 8% (24-48) Monocytes (%) (Auto) 1% (0-9) Eosinophils (%) (Auto) 0% (0-3) Basophils (%) (Auto) 0% (0-3) Neutrophils # (Auto) 9.2x10^3uL (1.8-7.7) Lymphocytes # (Auto) 0.8x10^3/uL (1.0-4.8) Monocytes # (Auto) 0.1x10^3/uL (0.0-1.1) Eosinophils # (Auto) 0.0x10^3/uL (0.0-0.7) Basophils # (Auto) 0.0x10^3/uL (0.0-0.2) Segmented Neutrophils % 94% (35-66) Lymphocytes % 4% (24-48) Monocytes % 2% (0-10) Platelet Estimate Adequate (ADEQUATE) Sodium Level 134mmol/L (136-145) Potassium Level 4.4mmol/L (3.5-5.1) Chloride Level 99mmol/L (98-107) Carbon Dioxide Level 26mmol/L (21-32) Anion Gap 9 (6-14) Blood Urea Nitrogen 11mg/dL (7-20) Creatinine 0.8mg/dL (0.6-1.0) Estimated GFR (Cockcroft-Gault) 69.6 Glucose Level 150mg/dL (70-99) Calcium Level 8.9mg/dL (8.5-10.1) Assessment and Plan Assessmemt and Plan Problems Medical Problems: (1) Malignant hypertension Status: Acute (2) Urinary tract infection Status: Acute (3) Weakness Status: Acute Problems: Comment Review of Relevant I have reviewed the following items jean (where applicable) has been applied. Labs Laboratory Tests Test 11/14/16 03:01 11/15/16 05:15 White Blood Count 9.9x10^3/uL (4.0-11.0) 10.1x10^3/uL (4.0-11.0) Red Blood Count 4.25x10^6/uL (3.50-5.40) 4.47x10^6/uL (3.50-5.40) Hemoglobin 11.9g/dL (12.0-15.5) 12.5g/dL (12.0-15.5) Hematocrit 36.9% (36.0-47.0) 38.1% (36.0-47.0) Mean Corpuscular Volume 87fL (79-100) 85fL (79-100) Mean Corpuscular Hemoglobin 28pg (25-35) 28pg (25-35) Mean Corpuscular Hemoglobin Concent 32g/dL (31-37) 33g/dL (31-37) Red Cell Distribution Width 14.0% (11.5-14.5) 14.4% (11.5-14.5) Platelet Count 249x10^3/uL (140-400) 286x10^3/uL (140-400) Neutrophils (%) (Auto) 73% (31-73) 91% (31-73) Lymphocytes (%) (Auto) 14% (24-48) 8% (24-48) Monocytes (%) (Auto) 10% (0-9) 1% (0-9) Eosinophils (%) (Auto) 2% (0-3) 0% (0-3) Basophils (%) (Auto) 0% (0-3) 0% (0-3) Neutrophils # (Auto) 7.3x10^3uL (1.8-7.7) 9.2x10^3uL (1.8-7.7) Lymphocytes # (Auto) 1.4x10^3/uL (1.0-4.8) 0.8x10^3/uL (1.0-4.8) Monocytes # (Auto) 1.0x10^3/uL (0.0-1.1) 0.1x10^3/uL (0.0-1.1) Eosinophils # (Auto) 0.2x10^3/uL (0.0-0.7) 0.0x10^3/uL (0.0-0.7) Basophils # (Auto) 0.0x10^3/uL (0.0-0.2) 0.0x10^3/uL (0.0-0.2) Sodium Level 140mmol/L (136-145) 134mmol/L (136-145) Potassium Level 4.0mmol/L (3.5-5.1) 4.4mmol/L (3.5-5.1) Chloride Level 105mmol/L (98-107) 99mmol/L (98-107) Carbon Dioxide Level 26mmol/L (21-32) 26mmol/L (21-32) Anion Gap 9 (6-14) 9 (6-14) Blood Urea Nitrogen 11mg/dL (7-20) 11mg/dL (7-20) Creatinine 0.6mg/dL (0.6-1.0) 0.8mg/dL (0.6-1.0) Estimated GFR (Cockcroft-Gault) 96.9 69.6 Glucose Level 105mg/dL (70-99) 150mg/dL (70-99) Calcium Level 8.6mg/dL (8.5-10.1) 8.9mg/dL (8.5-10.1) Segmented Neutrophils % 94% (35-66) Lymphocytes % 4% (24-48) Monocytes % 2% (0-10) Platelet Estimate Adequate (ADEQUATE) Laboratory Tests Test 11/15/16 05:15 White Blood Count 10.1x10^3/uL (4.0-11.0) Red Blood Count 4.47x10^6/uL (3.50-5.40) Hemoglobin 12.5g/dL (12.0-15.5) Hematocrit 38.1% (36.0-47.0) Mean Corpuscular Volume 85fL (79-100) Mean Corpuscular Hemoglobin 28pg (25-35) Mean Corpuscular Hemoglobin Concent 33g/dL (31-37) Red Cell Distribution Width 14.4% (11.5-14.5) Platelet Count 286x10^3/uL (140-400) Neutrophils (%) (Auto) 91% (31-73) Lymphocytes (%) (Auto) 8% (24-48) Monocytes (%) (Auto) 1% (0-9) Eosinophils (%) (Auto) 0% (0-3) Basophils (%) (Auto) 0% (0-3) Neutrophils # (Auto) 9.2x10^3uL (1.8-7.7) Lymphocytes # (Auto) 0.8x10^3/uL (1.0-4.8) Monocytes # (Auto) 0.1x10^3/uL (0.0-1.1) Eosinophils # (Auto) 0.0x10^3/uL (0.0-0.7) Basophils # (Auto) 0.0x10^3/uL (0.0-0.2) Segmented Neutrophils % 94% (35-66) Lymphocytes % 4% (24-48) Monocytes % 2% (0-10) Platelet Estimate Adequate (ADEQUATE) Sodium Level 134mmol/L (136-145) Potassium Level 4.4mmol/L (3.5-5.1) Chloride Level 99mmol/L (98-107) Carbon Dioxide Level 26mmol/L (21-32) Anion Gap 9 (6-14) Blood Urea Nitrogen 11mg/dL (7-20) Creatinine 0.8mg/dL (0.6-1.0) Estimated GFR (Cockcroft-Gault) 69.6 Glucose Level 150mg/dL (70-99) Calcium Level 8.9mg/dL (8.5-10.1) Microbiology 11/12/16 Urine Culture - Final, Complete 11/12/16 Urine Culture Result 1 (GÓMEZ) - Final, Complete Medications Current Medications Sodium Chloride 500 ml @ 500 mls/hr 1X ONCE IV Last administered on 01:35; Start 11/12/16 at 01:00; Stop 11/12/16 at 01:59; Status DC Nitroglycerin/ Dextrose (Nitroglycerin Drip) 250 ml @ 0 mls/hr 1X ONCE IV Last administered on 11/12/16 01:35; Start 11/12/16 at 01:15; Stop 11/12/16 at 01:16; Status DC Metoprolol Tartrate 12.5 mg 12.5 mg 1X ONCE PO Last administered on 11/12/16 01:34; Start 11/12/16 at 01:15; Stop 11/12/16 at 01:16; Status DC Ceftriaxone Sodium 50 ml @ 100 mls/hr 1X ONCE IV Last administered on 01:34; Start 11/12/16 at 01:15; Stop 11/12/16 at 01:44; Status DC Ceftriaxone Sodium/Sodium Chloride (Rocephin/Iv Sodium Chloride 0.9% 50ml) 50 ml @ 100 mls/hr Q24H IV Last administered on 11/14/16 20:54; Start 11/12/16 at 21:00 Ondansetron HCl (Zofran) 4 mg PRN Q8HRS PRN IV NAUSEA/VOMITING; Start 11/12/16 at 03:00; Stop 11/13/16 at 02:59; Status DC Metoprolol Tartrate (Lopressor) 25 mg BID PO ; Start 11/12/16 at 10:30; Stop at 10:35; Status DC Hydralazine HCl (Apresoline) 10 mg PRN Q4HRS PRN IVP ELEVATED BP, SEE COMMENTS Last administered on 11/12/16 12:05; Start 11/12/16 at 10:30 Diltiazem HCl (Cardizem 24hr Cd) 180 mg DAILY PO Last administered on 11:11; Start 11/12/16 at 11:00; Stop 11/12/16 at 12:44; Status DC Diltiazem HCl (Cardizem 24hr Cd) 240 mg DAILY PO Last administered on 09:44; Start 11/13/16 at 09:00 Hydralazine HCl 25 mg 25 mg Q8HRS PO Last administered on 11/15/16 06:00; Start 11/12/16 at 14:00 Sodium Chloride (Iv Sodium Chloride 0.9% 1000ml Bag) 1,000 ml @ 100 mls/hr Q10H IV Last administered on 11/13/16 23:42; Start 11/12/16 at 13:30 Gabapentin (Neurontin) 100 mg TID PO Last administered on 11/14/16 10:12; Start 11/12/16 at 21:00; Stop 11/14/16 at 13:40; Status DC Gadobutrol (Gadavist) 10 mmol 1X ONCE IV Last administered on 11/13/16 16:44 ; Start 11/13/16 at 16:30; Stop 11/13/16 at 16:31; Status DC Gabapentin (Neurontin) 300 mg TID PO Last administered on 11/14/16 20:54; Start 11/14/16 at 14:00 Methylprednisolone (Medrol) 8 mg BID PO ; Start 11/14/16 at 09:00; Stop at 21:01; Status Cancel Methylprednisolone (Medrol) 4 mg BIDPCLD PO ; Start 11/14/16 at 12:30; Stop at 17:31; Status Cancel Methylprednisolone (Medrol) 4 mg TIDPC PO Last administered on 11/15/16 09:45 ; Start 11/15/16 at 08:30; Stop 11/15/16 at 17:31 Methylprednisolone (Medrol) 8 mg QHS PO ; Start 11/15/16 at 21:00; Stop at 21:01 Methylprednisolone (Medrol) 4 mg QIDAFTMEAL PO ; Start 11/16/16 at 09:00; Stop at 21:01 Methylprednisolone (Medrol) 4 mg TID PO ; Start 11/17/16 at 09:00; Stop 11/17/16 at 21:01 Methylprednisolone (Medrol) 4 mg BID PO ; Start 11/18/16 at 09:00; Stop 11/18/16 at 21:01 Methylprednisolone (Medrol) 4 mg DAILY PO ; Start 11/19/16 at 09:00; Stop at 09:01 Pantoprazole Sodium (Protonix) 40 mg DAILYAC PO ; Start 11/14/16 at 19:10; Stop 11/15/16 at 05:25; Status DC Methylprednisolone (Medrol) 24 mg 1X ONCE PO Last administered on 11/15/16t 00 :28; Start 11/15/16 at 00:30; Stop 11/15/16 at 00:31; Status DC Pantoprazole Sodium (Protonix) 40 mg DAILYAC PO ; Start 11/15/16 at 05:25 Active Scripts Active Reported No Known Medications Prior To Admisstion (Info) Each 1 Each Vitals/I & O Vital Sign - Last 24 Hours 11/14/16 11/14/16 11/14/16 11/14/16 14:24 16:08 19:00 20:00 Temp 98.3 97.4 98.3 97.4 Pulse 96 96 107 Resp 20 18 B/P 147/88 161/81 156/83 Pulse Ox 95 97 O2 Delivery Room Air Room Air Room Air 11/14/16 11/14/16 11/15/16 11/15/16 22:27 23:00 03:14 05:43 Temp 99.5 99.4 99.5 99.4 Pulse 107 105 102 Resp 18 18 B/P 156/83 136/63 146/79 Pulse Ox 90 95 O2 Delivery Room Air Room Air Room Air 11/15/16 11/15/16 11/15/16 11/15/16 06:00 07:00 09:44 11:00 Temp 97.7 96.6 97.7 96.6 Pulse 102 78 114 90 Resp 18 18 B/P 146/79 124/80 149/73 119/69 Pulse Ox 98 94 O2 Delivery Room Air Room Air Intake and Output 11/14/16 11/14/16 11/15/16 15:00 23:00 07:00 Intake Total 600 ml 60 ml Output Total 1850 ml Balance -1850 ml 600 ml 60 ml MUSTAPHA KUMAR MD Nov 15, 2016 11:35
--- NOTE | 2016-11-15 11:58 | PDOC ---
SUBJECTIVE Subjective Consult noted. Attempted to see patient. She declines to receive NS assessment or advise. States that she does not wish to receive surgical/medical treatments/ recommendations for sabianist reasons. OBJECTIVE Vital Signs Vital Signs Date Time Temp Pulse Resp B/P Pulse Ox O2 Delivery O2 Flow Rate FiO2 11/15/16 11:00 96.6 90 18 119/69 94 Room Air 96.6 11/15/16 09:44 114 149/73 11/15/16 07:00 97.7 78 18 124/80 98 Room Air 97.7 11/15/16 06:00 102 146/79 11/15/16 05:43 99.4 102 18 146/79 95 Room Air 99.4 11/15/16 03:14 99.5 105 18 136/63 90 Room Air 99.5 11/14/16 23:00 Room Air 11/14/16 22:27 107 156/83 11/14/16 20:00 Room Air 11/14/16 19:00 97.4 107 18 156/83 97 Room Air 97.4 11/14/16 16:08 96 161/81 11/14/16 14:24 98.3 96 20 147/88 95 Room Air 98.3 I & O Intake and Output 11/15/16 07:00 Intake Total 660 ml Output Total 1850 ml Balance -1190 ml Intake Oral 660 ml Output Urine Total 1850 ml # Voids 2 # Bowel Movements 1 COMMENT Lab Laboratory Tests Test 11/15/16 05:15 White Blood Count 10.1x10^3/uL (4.0-11.0) Red Blood Count 4.47x10^6/uL (3.50-5.40) Hemoglobin 12.5g/dL (12.0-15.5) Hematocrit 38.1% (36.0-47.0) Mean Corpuscular Volume 85fL (79-100) Mean Corpuscular Hemoglobin 28pg (25-35) Mean Corpuscular Hemoglobin Concent 33g/dL (31-37) Red Cell Distribution Width 14.4% (11.5-14.5) Platelet Count 286x10^3/uL (140-400) Neutrophils (%) (Auto) 91% (31-73) Lymphocytes (%) (Auto) 8% (24-48) Monocytes (%) (Auto) 1% (0-9) Eosinophils (%) (Auto) 0% (0-3) Basophils (%) (Auto) 0% (0-3) Neutrophils # (Auto) 9.2x10^3uL (1.8-7.7) Lymphocytes # (Auto) 0.8x10^3/uL (1.0-4.8) Monocytes # (Auto) 0.1x10^3/uL (0.0-1.1) Eosinophils # (Auto) 0.0x10^3/uL (0.0-0.7) Basophils # (Auto) 0.0x10^3/uL (0.0-0.2) Segmented Neutrophils % 94% (35-66) Lymphocytes % 4% (24-48) Monocytes % 2% (0-10) Platelet Estimate Adequate (ADEQUATE) Sodium Level 134mmol/L (136-145) Potassium Level 4.4mmol/L (3.5-5.1) Chloride Level 99mmol/L (98-107) Carbon Dioxide Level 26mmol/L (21-32) Anion Gap 9 (6-14) Blood Urea Nitrogen 11mg/dL (7-20) Creatinine 0.8mg/dL (0.6-1.0) Estimated GFR (Cockcroft-Gault) 69.6 Glucose Level 150mg/dL (70-99) Calcium Level 8.9mg/dL (8.5-10.1) JOSÉ LUIS FARRELL MD Nov 15, 2016 11:58
--- NOTE | 2016-11-15 15:35 | PDOC ---
PROGRESS NOTES Assessment Assessment Generalized tiredness. Left LE weakness and pain. Left S1 radiculopathy. Hypertensive emergency, BP 225/109-124 mmHg. HTN UTI Degenerative spine disease. Obesity. No evidence of acute CVA this time. RECOMMENDATIONS/PLAN: BP control. Continue Neurontin, increase to 400 mg tid. Treat UTI and underlying medical diseases. Patient declined NS consult and possible surgical treatment. Consulted Dr. Melton. OT/PT. Rehab as needed. Brain MRI: Negative. L-spine MRI: Disc bulging touching left S1 nerve root. Lab: TSH, Vit B12 wnl. Elevated CK. HISTORY OF THE PRESENT ILLNESS: 76-y-old AA female patient with above medical diseases and HTN that was not controlled due to her non-compliance for treatment. She developed symptoms of left LE weakness and pain for about 1 week before she was admitted into hospital. No symptoms of urinary or bowel dysfunction. Her UE and cranial nerves were nt involved. Patient continued declined Neurosurgical evaluation and treatment. PAST MEDICAL HISTORY: Please see above. PAST SURGERY HISTORY: Appendectomy Hemorroidectomy ALLERGY: Reviewed. MEDICATIONS: Refer to [facility] FAMILY HISTORY: DM SOCIAL HISTORY: Lives at home. Denies current smoking, drinking, and illicit drug use. She smoked cigarettes in past. REVIEW OF SYSTEMS: Constitutional: No malnutrition, weight loss, cachexia. Head: No recent traumatic brain or head injury. Skin: No edema, or rash. Ear: No infection. Eyes: No vision loss or color blindness. Nose: No bleeding or purulent discharges. Hearing: No hearing decrease. Neck: No recent injury. Breast: No history of cancer, masses,or discharges. Cardiac: HTN. Pulmonary: No COPD. GI: No GI ulcer, GI bleeding. Urinary/genital: UTI. Endocrinologic: obesity Skeletomuscular: Generalized weakness tiredness. Neurological: see HP. Psychiatric: Denies drug use/abuse. Otherwise, not [id number] review of systems. PHYSICAL EXAMINATION: General appearance is in no acute distress. HEENT: Normocephalic and nontraumatic. Eyes, nose, ears, and throat are unremarkable. Neck is supple. No lymphadenopathy. No bruits are heard over the carotid artery. No crepitus. Cardiovascular: S1, S2, regular rate and rhythm. Pulmonary: Clear to auscultation bilaterally. Abdomen: Bowel sounds are positive. Abdomen is soft, nontender, and nondistended. Extremities: No rash, lesions, or edema. No restriction of range of motion NEUROLOGICAL EXAMINATION: Alert Oriented to time, place and person. PERRL. EOMI. CN: no focal findings. Muscle tone: within normal. Muscle strength: 5 right side, 3-4 left LE. DTR: 1-2 Plantar reflex: Flexor response bilaterally Gait: difficult to walk. Sensory exam: no abnormal findings on right side, pain to palpation ojn left lateral aspect of LE. No cerebellar signs elicited. F-T-N test accurate. Objective Objective Vital Signs Date Time Temp Pulse Resp B/P Pulse Ox O2 Delivery O2 Flow Rate FiO2 11/15/16 15:00 97.7 100 18 149/85 95 Room Air 97.7 Intake and Output 11/15/16 07:00 Intake Total 660 ml Output Total 1850 ml Balance -1190 ml Intake Oral 660 ml Output Urine Total 1850 ml # Voids 2 # Bowel Movements 1 Vitals Signs Vitals VS - Last 72 Hours, by Label Date Time Temp Pulse Resp B/P Pulse Ox O2 Delivery O2 Flow Rate FiO2 11/15/16 15:00 97.7 100 18 149/85 95 Room Air 97.7 11/15/16 12:51 90 119/69 11/15/16 11:00 96.6 90 18 119/69 94 Room Air 96.6 11/15/16 09:44 114 149/73 11/15/16 07:00 97.7 78 18 124/80 98 Room Air 97.7 11/15/16 06:00 102 146/79 11/15/16 05:43 99.4 102 18 146/79 95 Room Air 99.4 11/15/16 03:14 99.5 105 18 136/63 90 Room Air 99.5 11/14/16 23:00 Room Air 11/14/16 22:27 107 156/83 11/14/16 20:00 Room Air 11/14/16 19:00 97.4 107 18 156/83 97 Room Air 97.4 11/14/16 16:08 96 161/81 11/14/16 14:24 98.3 96 20 147/88 95 Room Air 98.3 11/14/16 11:00 98.3 100 22 210/100 97 Room Air 98.3 3/30/17 10:12 98 161/74 11/14/16 10:12 98 161/74 11/14/16 08:00 Room Air 11/14/16 07:00 97.7 98 22 / 95 Room Air 97.7 Laboratory Laboratory Laboratory Tests Test 11/15/16 05:15 White Blood Count 10.1x10^3/uL (4.0-11.0) Red Blood Count 4.47x10^6/uL (3.50-5.40) Hemoglobin 12.5g/dL (12.0-15.5) Hematocrit 38.1% (36.0-47.0) Mean Corpuscular Volume 85fL (79-100) Mean Corpuscular Hemoglobin 28pg (25-35) Mean Corpuscular Hemoglobin Concent 33g/dL (31-37) Red Cell Distribution Width 14.4% (11.5-14.5) Platelet Count 286x10^3/uL (140-400) Neutrophils (%) (Auto) 91% (31-73) Lymphocytes (%) (Auto) 8% (24-48) Monocytes (%) (Auto) 1% (0-9) Eosinophils (%) (Auto) 0% (0-3) Basophils (%) (Auto) 0% (0-3) Neutrophils # (Auto) 9.2x10^3uL (1.8-7.7) Lymphocytes # (Auto) 0.8x10^3/uL (1.0-4.8) Monocytes # (Auto) 0.1x10^3/uL (0.0-1.1) Eosinophils # (Auto) 0.0x10^3/uL (0.0-0.7) Basophils # (Auto) 0.0x10^3/uL (0.0-0.2) Segmented Neutrophils % 94% (35-66) Lymphocytes % 4% (24-48) Monocytes % 2% (0-10) Platelet Estimate Adequate (ADEQUATE) Sodium Level 134mmol/L (136-145) Potassium Level 4.4mmol/L (3.5-5.1) Chloride Level 99mmol/L (98-107) Carbon Dioxide Level 26mmol/L (21-32) Anion Gap 9 (6-14) Blood Urea Nitrogen 11mg/dL (7-20) Creatinine 0.8mg/dL (0.6-1.0) Estimated GFR (Cockcroft-Gault) 69.6 Glucose Level 150mg/dL (70-99) Calcium Level 8.9mg/dL (8.5-10.1) Microbiology 11/12/16 Urine Culture - Final, Complete 11/12/16 Urine Culture Result 1 (GÓMEZ) - Final, Complete Medication Medications Current Medications Methylprednisolone (Medrol) 4 mg BID PO ; Start 11/18/16 at 09:00; Stop 11/18/16 at 21:01 Methylprednisolone (Medrol) 4 mg DAILY PO ; Start 11/19/16 at 09:00; Stop at 09:01 Methylprednisolone (Medrol) 4 mg QIDAFTMEAL PO ; Start 11/16/16 at 09:00; Stop at 21:01 Methylprednisolone (Medrol) 4 mg TID PO ; Start 11/17/16 at 09:00; Stop 11/17/16 at 21:01 Methylprednisolone (Medrol) 4 mg TIDPC PO Last administered on 11/15/16 12:51 ; Start 11/15/16 at 08:30; Stop 11/15/16 at 17:31 Methylprednisolone (Medrol) 8 mg QHS PO ; Start 11/15/16 at 21:00; Stop at 21:01 Methylprednisolone (Medrol) 24 mg 1X ONCE PO Last administered on 11/15/16 00 :28; Start 11/15/16 at 00:30; Stop 11/15/16 at 00:31; Status DC Pantoprazole Sodium (Protonix) 40 mg DAILYAC PO ; Start 11/14/16 at 19:10; Stop 11/15/16 at 05:25; Status DC Pantoprazole Sodium (Protonix) 40 mg DAILYAC PO ; Start 11/15/16 at 05:25 Comment Review of Relevant I have reviewed the following items jean (where applicable) has been applied. PEDRO ROSAS MD Nov 15, 2016 15:35
[2016-11-15] MEDS ORDERED: methylPREDNISolone 4 MG TABLET. PO SCH (21:00)
[2016-11-16 03:06] VITALS: BP 167/75
[2016-11-16 04:52] LABS: BASO % 0 % (0-3); EOS % 0 % (0-3); HEMATOCRIT 36.4 % (36.0-47.0); HEMOGLOBIN 11.7 g/dL (12.0-15.5); LYMPH # 0.9 x10^3/uL (1.0-4.8); LYMPH % 8 % (24-48); MEAN CORPUSCULAR HEMOGLOBIN 28 pg (25-35); MEAN CORPUSCULAR HGB CONC 32 g/dL (31-37); MEAN CORPUSCULAR VOLUME 87 fL (79-100); MONO % 3 % (0-9); NEUT % 89 % (31-73); PLATELET COUNT 264 x10^3/uL (140-400); RED CELL DISTRIBUTION WIDTH 14.2 % (11.5-14.5); WHITE BLOOD COUNT 11.8 x10^3/uL (4.0-11.0)
[2016-11-16 04:59] LABS: CREATININE 0.7 mg/dL (0.6-1.0); GFR 81.1; POTASSIUM 4.5 mmol/L (3.5-5.1)
[2016-11-16] MEDS: HYDRALAZINE 25 MG TABLET PO SCH ×3 (05:48→21:23)
[2016-11-16] MEDS: IV NORMAL SALINE 1000ML BAG 1,000 ML IV SCH ×2 (07:30→17:08)
[2016-11-16] MEDS: PANTOPRAZOLE 40 MG TABLET.DR. PO SCH (07:30)
[2016-11-16] MEDS ORDERED: GABAPENTIN 300 MG CAPSULE. PO ONE (07:55)
[2016-11-16] MEDS: methylPREDNISolone 4 MG TABLET. PO SCH ×4 (09:00→21:00)
[2016-11-16] MEDS: GABAPENTIN 300 MG CAPSULE. PO SCH (09:00)
[2016-11-16] MEDS: DILTIAZEM HCL 240 MG CAP.ER.24H PO SCH (09:00)
--- NOTE | 2016-11-16 11:20 | PDOC ---
PROGRESS NOTES Subjective Subjective She c/o dizziness and refusing to take her medicines and also does not like too many BP checks. Objective Objective Vital Signs Date Time Temp Pulse Resp B/P Pulse Ox O2 Delivery O2 Flow Rate FiO2 11/16/16 11:00 96.4 84 20 94 Room Air 96.4 Intake and Output 11/16/16 06:59 Intake Total 2070 ml Balance 2070 ml Intake Oral 2070 ml # Voids 5 Physical Exam Physical Exam She is alert,comfortable but continues with left lower extremity weakness and she requires one person help with transfers. Assessment Assessment Problems Medical Problems: (1) Malignant hypertension Status: Acute (2) Urinary tract infection Status: Acute (3) Weakness Status: Acute Plan Plan of Care To continure present physical and occupational therapy follow up and to rehab or SNF when medically stable. Comment Review of Relevant I have reviewed the following items jean (where applicable) has been applied. Labs Laboratory Tests Test 11/15/16 05:15 11/16/16 04:20 White Blood Count 10.1x10^3/uL (4.0-11.0) 11.8x10^3/uL (4.0-11.0) Red Blood Count 4.47x10^6/uL (3.50-5.40) 4.20x10^6/uL (3.50-5.40) Hemoglobin 12.5g/dL (12.0-15.5) 11.7g/dL (12.0-15.5) Hematocrit 38.1% (36.0-47.0) 36.4% (36.0-47.0) Mean Corpuscular Volume 85fL (79-100) 87fL (79-100) Mean Corpuscular Hemoglobin 28pg (25-35) 28pg (25-35) Mean Corpuscular Hemoglobin Concent 33g/dL (31-37) 32g/dL (31-37) Red Cell Distribution Width 14.4% (11.5-14.5) 14.2% (11.5-14.5) Platelet Count 286x10^3/uL (140-400) 264x10^3/uL (140-400) Neutrophils (%) (Auto) 91% (31-73) 89% (31-73) Lymphocytes (%) (Auto) 8% (24-48) 8% (24-48) Monocytes (%) (Auto) 1% (0-9) 3% (0-9) Eosinophils (%) (Auto) 0% (0-3) 0% (0-3) Basophils (%) (Auto) 0% (0-3) 0% (0-3) Neutrophils # (Auto) 9.2x10^3uL (1.8-7.7) 10.5x10^3uL (1.8-7.7) Lymphocytes # (Auto) 0.8x10^3/uL (1.0-4.8) 0.9x10^3/uL (1.0-4.8) Monocytes # (Auto) 0.1x10^3/uL (0.0-1.1) 0.4x10^3/uL (0.0-1.1) Eosinophils # (Auto) 0.0x10^3/uL (0.0-0.7) 0.0x10^3/uL (0.0-0.7) Basophils # (Auto) 0.0x10^3/uL (0.0-0.2) 0.0x10^3/uL (0.0-0.2) Segmented Neutrophils % 94% (35-66) Lymphocytes % 4% (24-48) Monocytes % 2% (0-10) Platelet Estimate Adequate (ADEQUATE) Sodium Level 134mmol/L (136-145) 138mmol/L (136-145) Potassium Level 4.4mmol/L (3.5-5.1) 4.5mmol/L (3.5-5.1) Chloride Level 99mmol/L (98-107) 102mmol/L (98-107) Carbon Dioxide Level 26mmol/L (21-32) 29mmol/L (21-32) Anion Gap 9 (6-14) 7 (6-14) Blood Urea Nitrogen 11mg/dL (7-20) 14mg/dL (7-20) Creatinine 0.8mg/dL (0.6-1.0) 0.7mg/dL (0.6-1.0) Estimated GFR (Cockcroft-Gault) 69.6 81.1 Glucose Level 150mg/dL (70-99) 154mg/dL (70-99) Calcium Level 8.9mg/dL (8.5-10.1) 9.0mg/dL (8.5-10.1) Laboratory Tests Test 11/16/16 04:20 White Blood Count 11.8x10^3/uL (4.0-11.0) Red Blood Count 4.20x10^6/uL (3.50-5.40) Hemoglobin 11.7g/dL (12.0-15.5) Hematocrit 36.4% (36.0-47.0) Mean Corpuscular Volume 87fL (79-100) Mean Corpuscular Hemoglobin 28pg (25-35) Mean Corpuscular Hemoglobin Concent 32g/dL (31-37) Red Cell Distribution Width 14.2% (11.5-14.5) Platelet Count 264x10^3/uL (140-400) Neutrophils (%) (Auto) 89% (31-73) Lymphocytes (%) (Auto) 8% (24-48) Monocytes (%) (Auto) 3% (0-9) Eosinophils (%) (Auto) 0% (0-3) Basophils (%) (Auto) 0% (0-3) Neutrophils # (Auto) 10.5x10^3uL (1.8-7.7) Lymphocytes # (Auto) 0.9x10^3/uL (1.0-4.8) Monocytes # (Auto) 0.4x10^3/uL (0.0-1.1) Eosinophils # (Auto) 0.0x10^3/uL (0.0-0.7) Basophils # (Auto) 0.0x10^3/uL (0.0-0.2) Sodium Level 138mmol/L (136-145) Potassium Level 4.5mmol/L (3.5-5.1) Chloride Level 102mmol/L (98-107) Carbon Dioxide Level 29mmol/L (21-32) Anion Gap 7 (6-14) Blood Urea Nitrogen 14mg/dL (7-20) Creatinine 0.7mg/dL (0.6-1.0) Estimated GFR (Cockcroft-Gault) 81.1 Glucose Level 154mg/dL (70-99) Calcium Level 9.0mg/dL (8.5-10.1) Microbiology 11/12/16 Urine Culture - Final, Complete 11/12/16 Urine Culture Result 1 (GÓMEZ) - Final, Complete Medications Current Medications Sodium Chloride 500 ml @ 500 mls/hr 1X ONCE IV Last administered on 01:35; Start 11/12/16 at 01:00; Stop 11/12/16 at 01:59; Status DC Nitroglycerin/ Dextrose (Nitroglycerin Drip) 250 ml @ 0 mls/hr 1X ONCE IV Last administered on 11/12/16 01:35; Start 11/12/16 at 01:15; Stop 11/12/16 at 01:16; Status DC Metoprolol Tartrate 12.5 mg 12.5 mg 1X ONCE PO Last administered on 11/12/16 01:34; Start 11/12/16 at 01:15; Stop 11/12/16 at 01:16; Status DC Ceftriaxone Sodium 50 ml @ 100 mls/hr 1X ONCE IV Last administered on 01:34; Start 11/12/16 at 01:15; Stop 11/12/16 at 01:44; Status DC Ceftriaxone Sodium/Sodium Chloride (Rocephin/Iv Sodium Chloride 0.9% 50ml) 50 ml @ 100 mls/hr Q24H IV Last administered on 11/14/16 20:54; Start 11/12/16 at 21:00; Stop 11/15/16 at 11:34; Status DC Ondansetron HCl (Zofran) 4 mg PRN Q8HRS PRN IV NAUSEA/VOMITING; Start 11/12/16 at 03:00; Stop 11/13/16 at 02:59; Status DC Metoprolol Tartrate (Lopressor) 25 mg BID PO ; Start 11/12/16 at 10:30; Stop at 10:35; Status DC Hydralazine HCl (Apresoline) 10 mg PRN Q4HRS PRN IVP ELEVATED BP, SEE COMMENTS Last administered on 11/12/16 12:05; Start 11/12/16 at 10:30 Diltiazem HCl (Cardizem 24hr Cd) 180 mg DAILY PO Last administered on 11:11; Start 11/12/16 at 11:00; Stop 11/12/16 at 12:44; Status DC Diltiazem HCl (Cardizem 24hr Cd) 240 mg DAILY PO Last administered on 09:44; Start 11/13/16 at 09:00 Hydralazine HCl 25 mg 25 mg Q8HRS PO Last administered on 11/15/16 12:51; Start 11/12/16 at 14:00 Sodium Chloride (Iv Sodium Chloride 0.9% 1000ml Bag) 1,000 ml @ 100 mls/hr Q10H IV Last administered on 11/13/16 23:42; Start 11/12/16 at 13:30 Gabapentin (Neurontin) 100 mg TID PO Last administered on 11/14/16 10:12; Start 11/12/16 at 21:00; Stop 11/14/16 at 13:40; Status DC Gadobutrol (Gadavist) 10 mmol 1X ONCE IV Last administered on 11/13/16 16:44 ; Start 11/13/16 at 16:30; Stop 11/13/16 at 16:31; Status DC Gabapentin (Neurontin) 300 mg TID PO Last administered on 11/15/16 21:09; Start 11/14/16 at 14:00 Methylprednisolone (Medrol) 8 mg BID PO ; Start 11/14/16 at 09:00; Stop at 21:01; Status Cancel Methylprednisolone (Medrol) 4 mg BIDPCLD PO ; Start 11/14/16 at 12:30; Stop at 17:31; Status Cancel Methylprednisolone (Medrol) 4 mg TIDPC PO Last administered on 11/15/16 17:30 ; Start 11/15/16 at 08:30; Stop 11/15/16 at 17:31; Status DC Methylprednisolone (Medrol) 8 mg QHS PO Last administered on 11/15/16 21:09; Start 11/15/16 at 21:00; Stop 11/15/16 at 21:01; Status DC Methylprednisolone (Medrol) 4 mg QIDAFTMEAL PO ; Start 11/16/16 at 09:00; Stop at 21:01 Methylprednisolone (Medrol) 4 mg TID PO ; Start 11/17/16 at 09:00; Stop 11/17/16 at 21:01 Methylprednisolone (Medrol) 4 mg BID PO ; Start 11/18/16 at 09:00; Stop 11/18/16 at 21:01 Methylprednisolone (Medrol) 4 mg DAILY PO ; Start 11/19/16 at 09:00; Stop at 09:01 Pantoprazole Sodium (Protonix) 40 mg DAILYAC PO ; Start 11/14/16 at 19:10; Stop 11/15/16 at 05:25; Status DC Methylprednisolone (Medrol) 24 mg 1X ONCE PO Last administered on 11/15/16t 00 :28; Start 11/15/16 at 00:30; Stop 11/15/16 at 00:31; Status DC Pantoprazole Sodium (Protonix) 40 mg DAILYAC PO ; Start 11/15/16 at 05:25 Gabapentin (Neurontin) 300 mg STK-MED ONCE PO ; Start 11/16/16 at 07:55; Stop 11/16/16 at 07:56; Status DC Active Scripts Active Reported No Known Medications Prior To Admisstion (Info) Each 1 Each Vitals/I & O Vital Sign - Last 24 Hours 11/15/16 11/15/16 11/15/16 11/15/16 12:51 15:00 19:16 20:15 Temp 97.7 97.5 97.7 97.5 Pulse 90 100 103 Resp 18 20 B/P 119/69 149/85 164/75 Pulse Ox 95 96 O2 Delivery Room Air Room Air Room Air 11/15/16 11/15/16 11/16/16 11/16/16 23:18 23:29 03:06 05:48 Temp 97.7 97.8 97.7 97.8 Pulse 103 103 97 97 Resp 18 18 B/P 174/86 164/75 167/75 167/75 Pulse Ox 98 94 O2 Delivery Room Air Room Air 11/16/16 11/16/16 11/16/16 07:00 09:00 11:00 Temp 97.5 96.4 97.5 96.4 Pulse 101 97 84 Resp 20 20 B/P 167/75 Pulse Ox 96 94 O2 Delivery Room Air Room Air Intake and Output 11/15/16 11/15/16 11/16/16 14:59 22:59 06:59 Intake Total 870 ml 1200 ml Balance 870 ml 1200 ml GREGORIO,SIVAKOTI R MD Nov 16, 2016 11:20
--- NOTE | 2016-11-16 12:17 | PDOC ---
SUBJECTIVE Subjective Pt willing to be seen today. Briefly 76F who reports approximately one week history of increased weakness in the left lower extremity. Denies upper extremity or cranial symptoms. Denies numbness or paresthesias. Denies bowel/bladder changes. Onset was gradual and progressive without a discrete inciting event. She denies having such symptoms in the past. On exam BUE and RUE is 5/5, 3-/5 left HF, 4/5 left KF, 2/5 left KE , 2-/5 left DF, 4-/5 left PF, DTR with clonus left achilles and 3/4 left patellar, 1-2/4 on right, sensation intact LT-----MRI lumbar spine with some mild degenerative changes without significant stenoses at any level to explain symptoms. BUE intact with LLE deficits suggests possible thoracic etiology. Will acquire thoracic MRI to further assess. OBJECTIVE Vital Signs Vital Signs Date Time Temp Pulse Resp B/P Pulse Ox O2 Delivery O2 Flow Rate FiO2 11/16/16 11:00 96.4 84 20 94 Room Air 96.4 11/16/16 09:00 97 167/75 11/16/16 08:07 Room Air 11/16/16 07:00 97.5 101 20 96 Room Air 97.5 11/16/16 05:48 97 167/75 11/16/16 03:06 97.8 97 18 167/75 94 Room Air 97.8 11/15/16 23:29 103 164/75 11/15/16 23:18 97.7 103 18 174/86 98 Room Air 97.7 11/15/16 20:15 Room Air 11/15/16 19:16 97.5 103 20 164/75 96 Room Air 97.5 11/15/16 15:00 97.7 100 18 149/85 95 Room Air 97.7 11/15/16 12:51 90 119/69 I & O Intake and Output 11/16/16 06:59 Intake Total 2070 ml Balance 2070 ml Intake Oral 2070 ml # Voids 5 COMMENT Lab Laboratory Tests Test 11/16/16 04:20 White Blood Count 11.8x10^3/uL (4.0-11.0) Red Blood Count 4.20x10^6/uL (3.50-5.40) Hemoglobin 11.7g/dL (12.0-15.5) Hematocrit 36.4% (36.0-47.0) Mean Corpuscular Volume 87fL (79-100) Mean Corpuscular Hemoglobin 28pg (25-35) Mean Corpuscular Hemoglobin Concent 32g/dL (31-37) Red Cell Distribution Width 14.2% (11.5-14.5) Platelet Count 264x10^3/uL (140-400) Neutrophils (%) (Auto) 89% (31-73) Lymphocytes (%) (Auto) 8% (24-48) Monocytes (%) (Auto) 3% (0-9) Eosinophils (%) (Auto) 0% (0-3) Basophils (%) (Auto) 0% (0-3) Neutrophils # (Auto) 10.5x10^3uL (1.8-7.7) Lymphocytes # (Auto) 0.9x10^3/uL (1.0-4.8) Monocytes # (Auto) 0.4x10^3/uL (0.0-1.1) Eosinophils # (Auto) 0.0x10^3/uL (0.0-0.7) Basophils # (Auto) 0.0x10^3/uL (0.0-0.2) Sodium Level 138mmol/L (136-145) Potassium Level 4.5mmol/L (3.5-5.1) Chloride Level 102mmol/L (98-107) Carbon Dioxide Level 29mmol/L (21-32) Anion Gap 7 (6-14) Blood Urea Nitrogen 14mg/dL (7-20) Creatinine 0.7mg/dL (0.6-1.0) Estimated GFR (Cockcroft-Gault) 81.1 Glucose Level 154mg/dL (70-99) Calcium Level 9.0mg/dL (8.5-10.1) JOSÉ LUIS FARRELL MD Nov 16, 2016 12:17
--- NOTE | 2016-11-16 12:38 | PDOC ---
PROGRESS NOTES Assessment Assessment Generalized tiredness. Left LE weakness and pain. Left S1 radiculopathy. Hypertensive emergency, BP 225/109-124 mmHg. HTN UTI Degenerative spine disease. Obesity. No evidence of acute CVA this time. RECOMMENDATIONS/PLAN: BP control. Continue Neurontin, increased to 400 mg tid. Treat UTI and underlying medical diseases. Patient declined NS consult on 11/15 then requested NS consult stating God told her to do so. Consulted Dr. Melton. OT/PT. Rehab as needed. Brain MRI: Negative. L-spine MRI: Disc bulging touching left S1 nerve root. Lab: TSH, Vit B12 wnl. Elevated CK. HISTORY OF THE PRESENT ILLNESS: 76-y-old AA female patient with above medical diseases and HTN that was not controlled due to her non-compliance for treatment. She developed symptoms of left LE weakness and pain for about 1 week before she was admitted into hospital. No symptoms of urinary or bowel dysfunction. Her UE and cranial nerves were nt involved. Patient continued declined Neurosurgical evaluation and treatment. PAST MEDICAL HISTORY: Please see above. PAST SURGERY HISTORY: Appendectomy Hemorroidectomy ALLERGY: Reviewed. MEDICATIONS: Refer to [facility] FAMILY HISTORY: DM SOCIAL HISTORY: Lives at home. Denies current smoking, drinking, and illicit drug use. She smoked cigarettes in past. REVIEW OF SYSTEMS: Constitutional: No malnutrition, weight loss, cachexia. Head: No recent traumatic brain or head injury. Skin: No edema, or rash. Ear: No infection. Eyes: No vision loss or color blindness. Nose: No bleeding or purulent discharges. Hearing: No hearing decrease. Neck: No recent injury. Breast: No history of cancer, masses,or discharges. Cardiac: HTN. Pulmonary: No COPD. GI: No GI ulcer, GI bleeding. Urinary/genital: UTI. Endocrinologic: obesity Skeletomuscular: Generalized weakness tiredness. Neurological: see HP. Psychiatric: Denies drug use/abuse. Otherwise, not [id number] review of systems. PHYSICAL EXAMINATION: General appearance is in no acute distress. HEENT: Normocephalic and nontraumatic. Eyes, nose, ears, and throat are unremarkable. Neck is supple. No lymphadenopathy. No bruits are heard over the carotid artery. No crepitus. Cardiovascular: S1, S2, regular rate and rhythm. Pulmonary: Clear to auscultation bilaterally. Abdomen: Bowel sounds are positive. Abdomen is soft, nontender, and nondistended. Extremities: No rash, lesions, or edema. No restriction of range of motion NEUROLOGICAL EXAMINATION: Alert Oriented to time, place and person. PERRL. EOMI. CN: no focal findings. Muscle tone: within normal. Muscle strength: 5 right side, 4 left LE. DTR: 1-2 Plantar reflex: Flexor response bilaterally Gait: difficult to walk. Sensory exam: no abnormal findings on right side, pain to palpation ojn left lateral aspect of LE. No cerebellar signs elicited. F-T-N test accurate. Objective Objective Vital Signs Date Time Temp Pulse Resp B/P Pulse Ox O2 Delivery O2 Flow Rate FiO2 11/16/16 11:00 96.4 84 20 94 Room Air 96.4 Intake and Output 11/16/16 07:00 Intake Total 2070 ml Balance 2070 ml Intake Oral 2070 ml # Voids 5 Vitals Signs Vitals VS - Last 72 Hours, by Label Date Time Temp Pulse Resp B/P Pulse Ox O2 Delivery O2 Flow Rate FiO2 11/16/16 11:00 96.4 84 20 94 Room Air 96.4 11/16/16 09:00 97 167/75 11/16/16 08:07 Room Air 11/16/16 07:00 97.5 101 20 96 Room Air 97.5 11/16/16 05:48 97 167/75 11/16/16 03:06 97.8 97 18 167/75 94 Room Air 97.8 11/15/16 23:29 103 164/75 11/15/16 23:18 97.7 103 18 174/86 98 Room Air 97.7 11/15/16 20:15 Room Air 11/15/16 19:16 97.5 103 20 164/75 96 Room Air 97.5 11/15/16 15:00 97.7 100 18 149/85 95 Room Air 97.7 11/15/16 12:51 90 119/69 11/15/16 11:00 96.6 90 18 119/69 94 Room Air 96.6 11/15/16 09:44 114 149/73 11/15/16 08:00 Room Air 11/15/16 07:00 97.7 78 18 124/80 98 Room Air 97.7 Laboratory Laboratory Laboratory Tests Test 11/16/16 04:20 White Blood Count 11.8x10^3/uL (4.0-11.0) Red Blood Count 4.20x10^6/uL (3.50-5.40) Hemoglobin 11.7g/dL (12.0-15.5) Hematocrit 36.4% (36.0-47.0) Mean Corpuscular Volume 87fL (79-100) Mean Corpuscular Hemoglobin 28pg (25-35) Mean Corpuscular Hemoglobin Concent 32g/dL (31-37) Red Cell Distribution Width 14.2% (11.5-14.5) Platelet Count 264x10^3/uL (140-400) Neutrophils (%) (Auto) 89% (31-73) Lymphocytes (%) (Auto) 8% (24-48) Monocytes (%) (Auto) 3% (0-9) Eosinophils (%) (Auto) 0% (0-3) Basophils (%) (Auto) 0% (0-3) Neutrophils # (Auto) 10.5x10^3uL (1.8-7.7) Lymphocytes # (Auto) 0.9x10^3/uL (1.0-4.8) Monocytes # (Auto) 0.4x10^3/uL (0.0-1.1) Eosinophils # (Auto) 0.0x10^3/uL (0.0-0.7) Basophils # (Auto) 0.0x10^3/uL (0.0-0.2) Sodium Level 138mmol/L (136-145) Potassium Level 4.5mmol/L (3.5-5.1) Chloride Level 102mmol/L (98-107) Carbon Dioxide Level 29mmol/L (21-32) Anion Gap 7 (6-14) Blood Urea Nitrogen 14mg/dL (7-20) Creatinine 0.7mg/dL (0.6-1.0) Estimated GFR (Cockcroft-Gault) 81.1 Glucose Level 154mg/dL (70-99) Calcium Level 9.0mg/dL (8.5-10.1) Microbiology 11/12/16 Urine Culture - Final, Complete 11/12/16 Urine Culture Result 1 (GÓMEZ) - Final, Complete Medication Medications Current Medications Gabapentin (Neurontin) 300 mg STK-MED ONCE PO ; Start 11/16/16 at 07:55; Stop 11/16/16 at 07:56; Status DC Methylprednisolone (Medrol) 4 mg BID PO ; Start 11/18/16 at 09:00; Stop 11/18/16 at 21:01 Methylprednisolone (Medrol) 4 mg DAILY PO ; Start 11/19/16 at 09:00; Stop at 09:01 Methylprednisolone (Medrol) 4 mg QIDAFTMEAL PO ; Start 11/16/16 at 09:00; Stop at 21:01 Methylprednisolone (Medrol) 4 mg TID PO ; Start 11/17/16 at 09:00; Stop 11/17/16 at 21:01 Methylprednisolone (Medrol) 8 mg QHS PO Last administered on 11/15/16t 21:09; Start 11/15/16 at 21:00; Stop 11/15/16 at 21:01; Status DC Comment Review of Relevant I have reviewed the following items jean (where applicable) has been applied. PEDRO ROSAS MD Nov 16, 2016 12:38
--- NOTE | 2016-11-16 12:44 | PDOC ---
PROGRESS NOTES Chief Complaint Chief Complaint Malignant Hypertension Left LE weakness and pain. Left S1 radiculopathy. Degenerative spine disease. Obesity. Psych issues History of Present Illness History of Present Illness In bed resting VSS Physically weak and anxious DW RN No fever today Vitals Vitals Vital Signs Date Time Temp Pulse Resp B/P Pulse Ox O2 Delivery O2 Flow Rate FiO2 11/16/16 11:00 96.4 84 20 94 Room Air 96.4 Physical Exam General: Alert, Cooperative, No acute distress Heart: Regular rate (tachycardic), Normal S1, Normal S2, Other Lungs: Clear, Other (Normal egophony) Abdomen: Normal bowel sounds, Soft, No tenderness, No hepatosplenomegaly Extremities: No edema, Normal pulses, No tenderness/swelling Skin: No rashes, No breakdown Labs LABS Laboratory Tests Test 11/16/16 04:20 White Blood Count 11.8x10^3/uL (4.0-11.0) Red Blood Count 4.20x10^6/uL (3.50-5.40) Hemoglobin 11.7g/dL (12.0-15.5) Hematocrit 36.4% (36.0-47.0) Mean Corpuscular Volume 87fL (79-100) Mean Corpuscular Hemoglobin 28pg (25-35) Mean Corpuscular Hemoglobin Concent 32g/dL (31-37) Red Cell Distribution Width 14.2% (11.5-14.5) Platelet Count 264x10^3/uL (140-400) Neutrophils (%) (Auto) 89% (31-73) Lymphocytes (%) (Auto) 8% (24-48) Monocytes (%) (Auto) 3% (0-9) Eosinophils (%) (Auto) 0% (0-3) Basophils (%) (Auto) 0% (0-3) Neutrophils # (Auto) 10.5x10^3uL (1.8-7.7) Lymphocytes # (Auto) 0.9x10^3/uL (1.0-4.8) Monocytes # (Auto) 0.4x10^3/uL (0.0-1.1) Eosinophils # (Auto) 0.0x10^3/uL (0.0-0.7) Basophils # (Auto) 0.0x10^3/uL (0.0-0.2) Sodium Level 138mmol/L (136-145) Potassium Level 4.5mmol/L (3.5-5.1) Chloride Level 102mmol/L (98-107) Carbon Dioxide Level 29mmol/L (21-32) Anion Gap 7 (6-14) Blood Urea Nitrogen 14mg/dL (7-20) Creatinine 0.7mg/dL (0.6-1.0) Estimated GFR (Cockcroft-Gault) 81.1 Glucose Level 154mg/dL (70-99) Calcium Level 9.0mg/dL (8.5-10.1) Review of Systems Review of Systems co weakness co hunger Assessment and Plan Assessmemt and Plan Problems Medical Problems: (1) Malignant hypertension Status: Acute (2) Urinary tract infection Status: Acute (3) Weakness Status: Acute Assessment: Accelerated hypertension Left LE weakness and pain. Left S1 radiculopathy. Degenerative spine disease. Obesity. Plan: 1. Accelerated hypertension -B/P's systolic as high as over 200; currently at 167/75 -Continue hydralazine 25mg 2. Sinus tachycardia -Averaging around 100 presently; presented over 110 -Continue diltiazem 240mg 3. Degenerative spine disease / Radiculopathy -Lumbar MRI noted several regions consistent with stenosis and disc bulging -Continue methylprednisolone 4mg -Continue gabapentin 300mg 4. Urinary tract infection -WBC elevated to 11.8, Neutrophils elevated to 10.5, temperature decreased to 96.4 -UA demonstrated cloudy color, large leukocyte esterase, too many to count WBC's -Monitor and treat with antibiotics if progresses -Continue IVF Problems: Comment Review of Relevant I have reviewed the following items jean (where applicable) has been applied. Labs Laboratory Tests Test 11/15/16 05:15 11/16/16 04:20 White Blood Count 10.1x10^3/uL (4.0-11.0) 11.8x10^3/uL (4.0-11.0) Red Blood Count 4.47x10^6/uL (3.50-5.40) 4.20x10^6/uL (3.50-5.40) Hemoglobin 12.5g/dL (12.0-15.5) 11.7g/dL (12.0-15.5) Hematocrit 38.1% (36.0-47.0) 36.4% (36.0-47.0) Mean Corpuscular Volume 85fL (79-100) 87fL (79-100) Mean Corpuscular Hemoglobin 28pg (25-35) 28pg (25-35) Mean Corpuscular Hemoglobin Concent 33g/dL (31-37) 32g/dL (31-37) Red Cell Distribution Width 14.4% (11.5-14.5) 14.2% (11.5-14.5) Platelet Count 286x10^3/uL (140-400) 264x10^3/uL (140-400) Neutrophils (%) (Auto) 91% (31-73) 89% (31-73) Lymphocytes (%) (Auto) 8% (24-48) 8% (24-48) Monocytes (%) (Auto) 1% (0-9) 3% (0-9) Eosinophils (%) (Auto) 0% (0-3) 0% (0-3) Basophils (%) (Auto) 0% (0-3) 0% (0-3) Neutrophils # (Auto) 9.2x10^3uL (1.8-7.7) 10.5x10^3uL (1.8-7.7) Lymphocytes # (Auto) 0.8x10^3/uL (1.0-4.8) 0.9x10^3/uL (1.0-4.8) Monocytes # (Auto) 0.1x10^3/uL (0.0-1.1) 0.4x10^3/uL (0.0-1.1) Eosinophils # (Auto) 0.0x10^3/uL (0.0-0.7) 0.0x10^3/uL (0.0-0.7) Basophils # (Auto) 0.0x10^3/uL (0.0-0.2) 0.0x10^3/uL (0.0-0.2) Segmented Neutrophils % 94% (35-66) Lymphocytes % 4% (24-48) Monocytes % 2% (0-10) Platelet Estimate Adequate (ADEQUATE) Sodium Level 134mmol/L (136-145) 138mmol/L (136-145) Potassium Level 4.4mmol/L (3.5-5.1) 4.5mmol/L (3.5-5.1) Chloride Level 99mmol/L (98-107) 102mmol/L (98-107) Carbon Dioxide Level 26mmol/L (21-32) 29mmol/L (21-32) Anion Gap 9 (6-14) 7 (6-14) Blood Urea Nitrogen 11mg/dL (7-20) 14mg/dL (7-20) Creatinine 0.8mg/dL (0.6-1.0) 0.7mg/dL (0.6-1.0) Estimated GFR (Cockcroft-Gault) 69.6 81.1 Glucose Level 150mg/dL (70-99) 154mg/dL (70-99) Calcium Level 8.9mg/dL (8.5-10.1) 9.0mg/dL (8.5-10.1) Laboratory Tests Test 11/16/16 04:20 White Blood Count 11.8x10^3/uL (4.0-11.0) Red Blood Count 4.20x10^6/uL (3.50-5.40) Hemoglobin 11.7g/dL (12.0-15.5) Hematocrit 36.4% (36.0-47.0) Mean Corpuscular Volume 87fL (79-100) Mean Corpuscular Hemoglobin 28pg (25-35) Mean Corpuscular Hemoglobin Concent 32g/dL (31-37) Red Cell Distribution Width 14.2% (11.5-14.5) Platelet Count 264x10^3/uL (140-400) Neutrophils (%) (Auto) 89% (31-73) Lymphocytes (%) (Auto) 8% (24-48) Monocytes (%) (Auto) 3% (0-9) Eosinophils (%) (Auto) 0% (0-3) Basophils (%) (Auto) 0% (0-3) Neutrophils # (Auto) 10.5x10^3uL (1.8-7.7) Lymphocytes # (Auto) 0.9x10^3/uL (1.0-4.8) Monocytes # (Auto) 0.4x10^3/uL (0.0-1.1) Eosinophils # (Auto) 0.0x10^3/uL (0.0-0.7) Basophils # (Auto) 0.0x10^3/uL (0.0-0.2) Sodium Level 138mmol/L (136-145) Potassium Level 4.5mmol/L (3.5-5.1) Chloride Level 102mmol/L (98-107) Carbon Dioxide Level 29mmol/L (21-32) Anion Gap 7 (6-14) Blood Urea Nitrogen 14mg/dL (7-20) Creatinine 0.7mg/dL (0.6-1.0) Estimated GFR (Cockcroft-Gault) 81.1 Glucose Level 154mg/dL (70-99) Calcium Level 9.0mg/dL (8.5-10.1) Microbiology 11/12/16 Urine Culture - Final, Complete 11/12/16 Urine Culture Result 1 (GÓMEZ) - Final, Complete Medications Current Medications Sodium Chloride 500 ml @ 500 mls/hr 1X ONCE IV Last administered on 01:35; Start 11/12/16 at 01:00; Stop 11/12/16 at 01:59; Status DC Nitroglycerin/ Dextrose (Nitroglycerin Drip) 250 ml @ 0 mls/hr 1X ONCE IV Last administered on 11/12/16 01:35; Start 11/12/16 at 01:15; Stop 11/12/16 at 01:16; Status DC Metoprolol Tartrate 12.5 mg 12.5 mg 1X ONCE PO Last administered on 11/12/16 01:34; Start 11/12/16 at 01:15; Stop 11/12/16 at 01:16; Status DC Ceftriaxone Sodium 50 ml @ 100 mls/hr 1X ONCE IV Last administered on 01:34; Start 11/12/16 at 01:15; Stop 11/12/16 at 01:44; Status DC Ceftriaxone Sodium/Sodium Chloride (Rocephin/Iv Sodium Chloride 0.9% 50ml) 50 ml @ 100 mls/hr Q24H IV Last administered on 11/14/16 20:54; Start 11/12/16 at 21:00; Stop 11/15/16 at 11:34; Status DC Ondansetron HCl (Zofran) 4 mg PRN Q8HRS PRN IV NAUSEA/VOMITING; Start 11/12/16 at 03:00; Stop 11/13/16 at 02:59; Status DC Metoprolol Tartrate (Lopressor) 25 mg BID PO ; Start 11/12/16 at 10:30; Stop at 10:35; Status DC Hydralazine HCl (Apresoline) 10 mg PRN Q4HRS PRN IVP ELEVATED BP, SEE COMMENTS Last administered on 11/12/16 12:05; Start 11/12/16 at 10:30 Diltiazem HCl (Cardizem 24hr Cd) 180 mg DAILY PO Last administered on 11:11; Start 11/12/16 at 11:00; Stop 11/12/16 at 12:44; Status DC Diltiazem HCl (Cardizem 24hr Cd) 240 mg DAILY PO Last administered on 09:44; Start 11/13/16 at 09:00 Hydralazine HCl 25 mg 25 mg Q8HRS PO Last administered on 11/15/16 12:51; Start 11/12/16 at 14:00 Sodium Chloride (Iv Sodium Chloride 0.9% 1000ml Bag) 1,000 ml @ 100 mls/hr Q10H IV Last administered on 11/13/16 23:42; Start 11/12/16 at 13:30 Gabapentin (Neurontin) 100 mg TID PO Last administered on 11/14/16 10:12; Start 11/12/16 at 21:00; Stop 11/14/16 at 13:40; Status DC Gadobutrol (Gadavist) 10 mmol 1X ONCE IV Last administered on 11/13/16 16:44 ; Start 11/13/16 at 16:30; Stop 11/13/16 at 16:31; Status DC Gabapentin (Neurontin) 300 mg TID PO Last administered on 11/15/16 21:09; Start 11/14/16 at 14:00; Stop 11/16/16 at 11:15; Status DC Methylprednisolone (Medrol) 8 mg BID PO ; Start 11/14/16 at 09:00; Stop at 21:01; Status Cancel Methylprednisolone (Medrol) 4 mg BIDPCLD PO ; Start 11/14/16 at 12:30; Stop at 17:31; Status Cancel Methylprednisolone (Medrol) 4 mg TIDPC PO Last administered on 11/15/16 17:30 ; Start 11/15/16 at 08:30; Stop 11/15/16 at 17:31; Status DC Methylprednisolone (Medrol) 8 mg QHS PO Last administered on 11/15/16 21:09; Start 11/15/16 at 21:00; Stop 11/15/16 at 21:01; Status DC Methylprednisolone (Medrol) 4 mg QIDAFTMEAL PO ; Start 11/16/16 at 09:00; Stop at 21:01 Methylprednisolone (Medrol) 4 mg TID PO ; Start 11/17/16 at 09:00; Stop 11/17/16 at 21:01 Methylprednisolone (Medrol) 4 mg BID PO ; Start 11/18/16 at 09:00; Stop 11/18/16 at 21:01 Methylprednisolone (Medrol) 4 mg DAILY PO ; Start 11/19/16 at 09:00; Stop at 09:01 Pantoprazole Sodium (Protonix) 40 mg DAILYAC PO ; Start 11/14/16 at 19:10; Stop 11/15/16 at 05:25; Status DC Methylprednisolone (Medrol) 24 mg 1X ONCE PO Last administered on 11/15/16 00 :28; Start 11/15/16 at 00:30; Stop 11/15/16 at 00:31; Status DC Pantoprazole Sodium (Protonix) 40 mg DAILYAC PO ; Start 11/15/16 at 05:25 Gabapentin (Neurontin) 300 mg STK-MED ONCE PO ; Start 11/16/16 at 07:55; Stop 11/16/16 at 07:56; Status DC Active Scripts Active Reported No Known Medications Prior To Admisstion (Info) Each 1 Each Vitals/I & O Vital Sign - Last 24 Hours 11/15/16 11/15/16 11/15/16 11/15/16 12:51 15:00 19:16 20:15 Temp 97.7 97.5 97.7 97.5 Pulse 90 100 103 Resp 18 20 B/P 119/69 149/85 164/75 Pulse Ox 95 96 O2 Delivery Room Air Room Air Room Air 11/15/16 11/15/16 11/16/16 11/16/16 23:18 23:29 03:06 05:48 Temp 97.7 97.8 97.7 97.8 Pulse 103 103 97 97 Resp 18 18 B/P 174/86 164/75 167/75 167/75 Pulse Ox 98 94 O2 Delivery Room Air Room Air 11/16/16 11/16/16 11/16/16 11/16/16 07:00 08:07 09:00 11:00 Temp 97.5 96.4 97.5 96.4 Pulse 101 97 84 Resp 20 20 B/P 167/75 Pulse Ox 96 94 O2 Delivery Room Air Room Air Room Air Intake and Output 11/15/16 11/15/16 11/16/16 15:00 23:00 07:00 Intake Total 870 ml 1200 ml Balance 870 ml 1200 ml BEAR ARIAS III DO Nov 16, 2016 12:44
[2016-11-16 13:00] VITALS: BP 159/79
[2016-11-17] MEDS: IV NORMAL SALINE 1000ML BAG 1,000 ML IV SCH (03:30)
[2016-11-17] MEDS: HYDRALAZINE 25 MG TABLET PO SCH ×4 (06:00→23:36)
--- NOTE | 2016-11-17 08:59 | RAD ---
EXAM: Thoracic spine MRI without contrast. HISTORY: Left leg weakness. TECHNIQUE: Multiplanar and multisequence magnetic resonance imaging of the thoracic spine was performed without contrast. The patient refused the postcontrast portion of the exam. The patient also refused repeat imaging due to motion on initial images. COMPARISON: Lumbar spine MRI dated 11/13/2016. FINDINGS: There is no significant listhesis. The vertebral bodies are normal in height. There are several T2 hyperintense lesions within the vertebral column, likely hemangiomas. There is a T2 hyperintense and T1 hypointense lesion with increased signal on inversion recovery images within the posterior body and left pedicle of T5, possibly an atypical hemangioma. No additional suspicious osseous lesion is seen. There is no disc protrusion or significant foraminal or central canal stenosis within the thoracic spine. There is a 6.6 cm cyst within the upper pole of the left kidney. The conus terminates at L2. There are suspected 6 lumbar vertebral segments There is abnormal T2 hyperintensity within the spinal cord and spinal cord expansion from C7-T1 to the mid aspect of T6. This occupies the majority of the left and central aspect of the spinal cord. No additional spinal cord lesion is seen. IMPRESSION: 1. Spinal cord expansion with associated abnormal signal from C7-T1 to the mid aspect of T6. The differential includes acute transverse myelitis as well as spinal cord infarction and an intramedullary neoplasm. Further evaluation with postcontrast images of the thoracic spine and pre and postcontrast images of the cervical spine is recommended. The patient refused postcontrast imaging at the time of this exam. 2. T2 hyperintense and T1 hypointense lesion within the left posterior body and pedicle of T5. Given the presence of multiple small hemangiomas, this may represent an atypical hemangioma. If there is a history of primary malignancy, CT images through this region may be useful for characterization. 3. No evidence of thoracic foraminal or central canal stenosis. 4. Large left renal cyst.
[2016-11-17] MEDS: PANTOPRAZOLE 40 MG TABLET.DR. PO SCH (09:29)
[2016-11-17] MEDS: methylPREDNISolone 4 MG TABLET. PO SCH ×3 (09:30→21:00)
[2016-11-17] MEDS: DILTIAZEM HCL 240 MG CAP.ER.24H PO SCH (09:30)
--- NOTE | 2016-11-17 12:10 | PDOC ---
SUBJECTIVE Subjective Denies acute changes. OBJECTIVE Objective MRI thoracic expansile abnormal signal upper thoracic lower cervical cord Vital Signs Vital Signs Date Time Temp Pulse Resp B/P Pulse Ox O2 Delivery O2 Flow Rate FiO2 11/17/16 09:30 89 159/79 11/17/16 08:00 Room Air 11/17/16 07:00 98.1 89 20 96 Room Air 98.1 11/17/16 06:00 90 159/79 11/16/16 21:23 90 159/79 11/16/16 20:00 Room Air 11/16/16 15:00 97.1 90 20 95 Room Air 97.1 11/16/16 13:00 98 18 159/79 97 Room Air 11/16/16 13:00 98 159/79 I & O Intake and Output 11/17/16 06:59 Intake Total 1890 ml Output Total 2100 ml Balance -210 ml Intake Oral 1890 ml Output Urine Total 2100 ml # Voids 8 # Bowel Movements 4 PHYSICAL EXAM Physical Exam AA, NAD, speech fluent, MEDINA, produced full resistance in left DF, PF, KE, and KF today, 3-/5 left HF, sensation intact LT, other extremities 5/5 throughout ASSESSMENT/PLAN Assessment/Plan 76F with upper thoracic cord/lower cervical cord lesion -refused IV yesterday, so only with noncontrast exam -next step is MRI thoracic with contrast and MRI cervical with and without contrast to better assess lesion radiographically Problems: JOSÉ LUIS FARRELL MD Nov 17, 2016 12:10
--- NOTE | 2016-11-17 15:08 | PDOC ---
PROGRESS NOTES Assessment Assessment Generalized tiredness. Left LE weakness and pain. Left S1 radiculopathy. Questionable lesions on T-Spine MRI. Hypertensive emergency, BP 225/109-124 mmHg. HTN UTI Degenerative spine disease. Obesity. No evidence of acute CVA this time. RECOMMENDATIONS/PLAN: C-T Spine MRI with contrast. BP control. Continue Neurontin 400 mg tid. Treat UTI and underlying medical diseases. Consulted NS and Dr. Melton. OT/PT. Brain MRI: Negative. L-spine MRI: Disc bulging touching left S1 nerve root. Lab: TSH, Vit B12 wnl. Elevated CK. HISTORY OF THE PRESENT ILLNESS: 76-y-old AA female patient with above medical diseases and HTN that was not controlled due to her non-compliance for treatment. She developed symptoms of left LE weakness and pain for about 1 week before she was admitted into hospital. No symptoms of urinary or bowel dysfunction. Her UE and cranial nerves were nt involved. Patient continued accepted Neurosurgical evaluation since 11/16. Her weakness of left LE improved on 11/17. PAST MEDICAL HISTORY: Please see above. PAST SURGERY HISTORY: Appendectomy Hemorroidectomy ALLERGY: Reviewed. MEDICATIONS: Refer to [facility] FAMILY HISTORY: DM SOCIAL HISTORY: Lives at home. Denies current smoking, drinking, and illicit drug use. She smoked cigarettes in past. REVIEW OF SYSTEMS: Constitutional: No malnutrition, weight loss, cachexia. Head: No recent traumatic brain or head injury. Skin: No edema, or rash. Ear: No infection. Eyes: No vision loss or color blindness. Nose: No bleeding or purulent discharges. Hearing: No hearing decrease. Neck: No recent injury. Breast: No history of cancer, masses,or discharges. Cardiac: HTN. Pulmonary: No COPD. GI: No GI ulcer, GI bleeding. Urinary/genital: UTI. Endocrinologic: obesity Skeletomuscular: Generalized weakness tiredness. Neurological: see HP. Psychiatric: Denies drug use/abuse. Otherwise, not [id number] review of systems. PHYSICAL EXAMINATION: General appearance is in no acute distress. HEENT: Normocephalic and nontraumatic. Eyes, nose, ears, and throat are unremarkable. Neck is supple. No lymphadenopathy. No bruits are heard over the carotid artery. No crepitus. Cardiovascular: S1, S2, regular rate and rhythm. Pulmonary: Clear to auscultation bilaterally. Abdomen: Bowel sounds are positive. Abdomen is soft, nontender, and nondistended. Extremities: No rash, lesions, or edema. No restriction of range of motion NEUROLOGICAL EXAMINATION: Alert Oriented to time, place and person. PERRL. EOMI. CN: no focal findings. Muscle tone: within normal. Muscle strength: 5 right side, 4 left LE. DTR: 1-2 Plantar reflex: Flexor response bilaterally Gait: difficult to walk. Sensory exam: no abnormal findings on right side, pain to palpation ojn left lateral aspect of LE. No cerebellar signs elicited. F-T-N test fine. Objective Objective Vital Signs Date Time Temp Pulse Resp B/P Pulse Ox O2 Delivery O2 Flow Rate FiO2 11/17/16 13:01 89 159/79 11/17/16 08:00 Room Air 11/17/16 07:00 98.1 20 96 98.1 Intake and Output 11/17/16 07:00 Intake Total 1890 ml Output Total 2100 ml Balance -210 ml Intake Oral 1890 ml Output Urine Total 2100 ml # Voids 8 # Bowel Movements 4 Vitals Signs Vitals VS - Last 72 Hours, by Label Date Time Temp Pulse Resp B/P Pulse Ox O2 Delivery O2 Flow Rate FiO2 11/17/16 13:01 89 159/79 11/17/16 09:30 89 159/79 11/17/16 08:00 Room Air 11/17/16 07:00 98.1 89 20 96 Room Air 98.1 11/17/16 06:00 90 159/79 11/16/16 21:23 90 159/79 11/16/16 20:00 Room Air 11/16/16 15:00 97.1 90 20 95 Room Air 97.1 11/16/16 13:00 98 18 159/79 97 Room Air 11/16/16 13:00 98 159/79 11/16/16 11:00 96.4 84 20 94 Room Air 96.4 11/16/16 09:00 97 167/75 11/16/16 08:07 Room Air 11/16/16 07:00 97.5 101 20 96 Room Air 97.5 Laboratory Laboratory Microbiology 11/12/16 Urine Culture - Final, Complete 11/12/16 Urine Culture Result 1 (GÓMEZ) - Final, Complete Medication Medications Current Medications Methylprednisolone (Medrol) 4 mg BID PO ; Start 11/18/16 at 09:00; Stop 11/18/16 at 21:01 Methylprednisolone (Medrol) 4 mg DAILY PO ; Start 11/19/16 at 09:00; Stop at 09:01 Methylprednisolone (Medrol) 4 mg TID PO ; Start 11/17/16 at 09:00; Stop 11/17/16 at 21:01 Comment Review of Relevant I have reviewed the following items jean (where applicable) has been applied. PEDRO ROSAS MD Nov 17, 2016 15:08
[2016-11-17] MEDS ORDERED: GADOBUTROL 10 MMOL/10 ML VIAL IV ONE (16:00)
--- NOTE | 2016-11-17 16:17 | PDOC ---
PROGRESS NOTES Chief Complaint Chief Complaint cc: Left lower extremity weakness -History of cholecystectomy -Hiatal hernia -Obesity -Transient ischemic attack -Hypertension -Early dementia History of Present Illness History of Present Illness The patient was in bed when we entered her room to examine her. She was anxious to come to a conclusion to her medical problems and wishes for a prompt and efficient response. Neurosurgery was consulted and explained additional imaging , this time of the cervical spine as a lesion that was found on thoracic spine MRI extended out of range of its view. It was discussed that a PICC line may be the best option for her present situation as that would allow efficient administration of dye for imaging. She does report a resolution of her weakness of the left leg today. Vitals Vitals Vital Signs Date Time Temp Pulse Resp B/P Pulse Ox O2 Delivery O2 Flow Rate FiO2 11/17/16 13:01 89 159/79 11/17/16 08:00 Room Air 11/17/16 07:00 98.1 20 96 98.1 Physical Exam General: Alert, Cooperative, No acute distress Heart: Regular rate (tachycardic), Normal S1, Normal S2 Lungs: Clear, Other (No chest retractions) Abdomen: Normal bowel sounds, Soft, No tenderness, No hepatosplenomegaly Extremities: No cyanosis, No edema, Normal pulses, No tenderness/swelling Skin: No rashes, No breakdown (Bruising on left hand) Review of Systems Review of Systems The patient does not have chest pain. She does not complain of shortness of breath, sputum production, or wheezing. Assessment and Plan Assessmemt and Plan Problems Medical Problems: (1) Malignant hypertension Status: Acute (2) Urinary tract infection Status: Acute (3) Weakness Status: Acute Assessment: cc: Left lower extremity weakness -History of cholecystectomy -Hiatal hernia -Obesity -Transient ischemic attack -Hypertension -Early dementia Plan: 1. Await results of cervical MRI 2. Continue hydralazine for malignant blood pressure 3. Get new system for bedside commode per her wishes 4. Continue IVF for UTI PPX 5. PT/OT 6. Recheck labs 7. Appreciate consult from Neurology, Neurosurgery, Cardiology, and PM&R Problems: Comment Review of Relevant I have reviewed the following items jean (where applicable) has been applied. Labs Laboratory Tests Test 11/16/16 04:20 White Blood Count 11.8x10^3/uL (4.0-11.0) Red Blood Count 4.20x10^6/uL (3.50-5.40) Hemoglobin 11.7g/dL (12.0-15.5) Hematocrit 36.4% (36.0-47.0) Mean Corpuscular Volume 87fL (79-100) Mean Corpuscular Hemoglobin 28pg (25-35) Mean Corpuscular Hemoglobin Concent 32g/dL (31-37) Red Cell Distribution Width 14.2% (11.5-14.5) Platelet Count 264x10^3/uL (140-400) Neutrophils (%) (Auto) 89% (31-73) Lymphocytes (%) (Auto) 8% (24-48) Monocytes (%) (Auto) 3% (0-9) Eosinophils (%) (Auto) 0% (0-3) Basophils (%) (Auto) 0% (0-3) Neutrophils # (Auto) 10.5x10^3uL (1.8-7.7) Lymphocytes # (Auto) 0.9x10^3/uL (1.0-4.8) Monocytes # (Auto) 0.4x10^3/uL (0.0-1.1) Eosinophils # (Auto) 0.0x10^3/uL (0.0-0.7) Basophils # (Auto) 0.0x10^3/uL (0.0-0.2) Sodium Level 138mmol/L (136-145) Potassium Level 4.5mmol/L (3.5-5.1) Chloride Level 102mmol/L (98-107) Carbon Dioxide Level 29mmol/L (21-32) Anion Gap 7 (6-14) Blood Urea Nitrogen 14mg/dL (7-20) Creatinine 0.7mg/dL (0.6-1.0) Estimated GFR (Cockcroft-Gault) 81.1 Glucose Level 154mg/dL (70-99) Calcium Level 9.0mg/dL (8.5-10.1) Microbiology 11/12/16 Urine Culture - Final, Complete 11/12/16 Urine Culture Result 1 (GÓMEZ) - Final, Complete Medications Current Medications Sodium Chloride 500 ml @ 500 mls/hr 1X ONCE IV Last administered on t 01:35; Start 11/12/16 at 01:00; Stop 11/12/16 at 01:59; Status DC Nitroglycerin/ Dextrose (Nitroglycerin Drip) 250 ml @ 0 mls/hr 1X ONCE IV Last administered on 11/12/16 01:35; Start 11/12/16 at 01:15; Stop 11/12/16 at 01:16; Status DC Metoprolol Tartrate 12.5 mg 12.5 mg 1X ONCE PO Last administered on 11/12/16 01:34; Start 11/12/16 at 01:15; Stop 11/12/16 at 01:16; Status DC Ceftriaxone Sodium 50 ml @ 100 mls/hr 1X ONCE IV Last administered on 01:34; Start 11/12/16 at 01:15; Stop 11/12/16 at 01:44; Status DC Ceftriaxone Sodium/Sodium Chloride (Rocephin/Iv Sodium Chloride 0.9% 50ml) 50 ml @ 100 mls/hr Q24H IV Last administered on 11/14/16 20:54; Start 11/12/16 at 21:00; Stop 11/15/16 at 11:34; Status DC Ondansetron HCl (Zofran) 4 mg PRN Q8HRS PRN IV NAUSEA/VOMITING; Start 11/12/16 at 03:00; Stop 11/13/16 at 02:59; Status DC Metoprolol Tartrate (Lopressor) 25 mg BID PO ; Start 11/12/16 at 10:30; Stop at 10:35; Status DC Hydralazine HCl (Apresoline) 10 mg PRN Q4HRS PRN IVP ELEVATED BP, SEE COMMENTS Last administered on 11/12/16 12:05; Start 11/12/16 at 10:30 Diltiazem HCl (Cardizem 24hr Cd) 180 mg DAILY PO Last administered on 11:11; Start 11/12/16 at 11:00; Stop 11/12/16 at 12:44; Status DC Diltiazem HCl (Cardizem 24hr Cd) 240 mg DAILY PO Last administered on 09:44; Start 11/13/16 at 09:00 Hydralazine HCl 25 mg 25 mg Q8HRS PO Last administered on 11/17/16 13:01; Start 11/12/16 at 14:00 Sodium Chloride (Iv Sodium Chloride 0.9% 1000ml Bag) 1,000 ml @ 100 mls/hr Q10H IV Last administered on 11/13/16 23:42; Start 11/12/16 at 13:30; Stop 11/17/16 at 06:13; Status DC Gabapentin (Neurontin) 100 mg TID PO Last administered on 11/14/16 10:12; Start 11/12/16 at 21:00; Stop 11/14/16 at 13:40; Status DC Gadobutrol (Gadavist) 10 mmol 1X ONCE IV Last administered on 11/13/16 16:44 ; Start 11/13/16 at 16:30; Stop 11/13/16 at 16:31; Status DC Gabapentin (Neurontin) 300 mg TID PO Last administered on 11/15/16 21:09; Start 11/14/16 at 14:00; Stop 11/16/16 at 11:15; Status DC Methylprednisolone (Medrol) 8 mg BID PO ; Start 11/14/16 at 09:00; Stop at 21:01; Status Cancel Methylprednisolone (Medrol) 4 mg BIDPCLD PO ; Start 11/14/16 at 12:30; Stop at 17:31; Status Cancel Methylprednisolone (Medrol) 4 mg TIDPC PO Last administered on 11/15/16 17:30 ; Start 11/15/16 at 08:30; Stop 11/15/16 at 17:31; Status DC Methylprednisolone (Medrol) 8 mg QHS PO Last administered on 11/15/16 21:09; Start 11/15/16 at 21:00; Stop 11/15/16 at 21:01; Status DC Methylprednisolone (Medrol) 4 mg QIDAFTMEAL PO Last administered on 11/16/16 12 :59; Start 11/16/16 at 09:00; Stop 11/16/16 at 21:01; Status DC Methylprednisolone (Medrol) 4 mg TID PO ; Start 11/17/16 at 09:00; Stop 11/17/16 at 21:01 Methylprednisolone (Medrol) 4 mg BID PO ; Start 11/18/16 at 09:00; Stop 11/18/16 at 21:01 Methylprednisolone (Medrol) 4 mg DAILY PO ; Start 11/19/16 at 09:00; Stop at 09:01 Pantoprazole Sodium (Protonix) 40 mg DAILYAC PO ; Start 11/14/16 at 19:10; Stop 11/15/16 at 05:25; Status DC Methylprednisolone (Medrol) 24 mg 1X ONCE PO Last administered on 11/15/16 00 :28; Start 11/15/16 at 00:30; Stop 11/15/16 at 00:31; Status DC Pantoprazole Sodium (Protonix) 40 mg DAILYAC PO ; Start 11/15/16 at 05:25 Gabapentin (Neurontin) 300 mg STK-MED ONCE PO ; Start 11/16/16 at 07:55; Stop 11/16/16 at 07:56; Status DC Gadobutrol (Gadavist) 10 mmol 1X ONCE IV Last administered on 11/17/16 16:07; Start 11/17/16 at 16:00; Stop 11/17/16 at 16:01; Status DC Active Scripts Active Reported No Known Medications Prior To Admisstion (Info) Each 1 Each Vitals/I & O Vital Sign - Last 24 Hours 11/16/16 11/16/16 11/17/16 11/17/16 20:00 21:23 06:00 07:00 Temp 98.1 98.1 Pulse 90 90 89 Resp 20 B/P 159/79 159/79 Pulse Ox 96 O2 Delivery Room Air Room Air 11/17/16 11/17/16 11/17/16 08:00 09:30 13:01 Pulse 89 89 B/P 159/79 159/79 O2 Delivery Room Air Intake and Output 11/16/16 11/16/16 11/17/16 15:00 23:00 07:00 Intake Total 590 ml 1300 ml Output Total 2100 ml Balance 590 ml -800 ml JUANANIAL K III DO Nov 17, 2016 16:17
--- NOTE | 2016-11-17 16:34 | RAD ---
EXAM: Cervical spine MRI with and without contrast. HISTORY: Left leg weakness. TECHNIQUE: Multiplanar and multisequence magnetic resonance imaging of the cervical spine was performed prior to and following the administration of cc Gadavist intravenous contrast . COMPARISON: Thoracic spine MRI performed on the same date. FINDINGS: There is thoracic kyphosis centered at C4-5. There is no significant listhesis. The vertebral bodies are normal in height. There are a few small vertebral body hemangiomas. There is an enhancing T2 hyperintense and T1 hypointense lesion with increased signal on inversion recovery images within the posterior body and left pedicle of T5. This may be an atypical hemangioma. There is T2 hyperintensity within the spinal cord extending from C6-C7 to the mid aspect of T6. This abnormal signal involves primarily the left ventral and central aspects of the spinal cord. There is a superimposed focally dilated central canal or syringohydromyelia measuring 1 mm at the level of T1. There is cord expansion and abnormal enhancement throughout T2 hyperintensity. At C2-C3, there is no stenosis. At C3-C4, there is no stenosis. At C4-C5, there is a posterior central disc protrusion which slightly deforms the ventral aspect of the spinal cord. This is superimposed on a disc bulge and endplate remodeling. There is no stenosis. At C5-C6, there is a disc bulge and endplate remodeling. There is mild left and right facet arthropathy. There is mild left foraminal stenosis. At C6-C7, there is a disc bulge and endplate remodeling. There is no stenosis. IMPRESSION: 1. Abnormal T2 hyperintensity and enhancement within the left ventral and central aspects of the spinal cord from C6-C7 to the mid aspect of T6. The differential diagnosis includes acute transverse myelitis, subacute spinal cord infarction, and less likely, intramedullary neoplasm. 2. Degenerative change within the cervical spine predominantly at C4-C5. 3. Cervical kyphosis. 4. Enhancing T2 hyperintense and T1 hypointense lesion within the left posterior aspect of T5 and the left T5 pedicle. Given the presence of hemangiomas, this may were present an atypical hemangioma. If there is a history of primary malignancy, the possibility of a metastasis is not excluded.
--- NOTE | 2016-11-17 16:56 | RAD ---
EXAM: Thoracic spine MRI with intravenous contrast. HISTORY: Spinal cord lesion and left leg weakness. TECHNIQUE: Multiplanar and multisequence magnetic resonance imaging of the thoracic spine was performed prior to and following the administration of 10 cc.Gadavist intravenous contrast. COMPARISON: Noncontrast thoracic spine MRI performed on the same date. FINDINGS: There is a T2 hyperintense enhancing lesion involving the majority of the left greater than right aspects of the spinal cord from C6-C7 to T6. There is slight increased cord caliber within this region. There is cervical kyphosis and slight S-shaped thoracic scoliosis. There is no significant listhesis. The vertebral bodies are normal in height. There is no disc protrusion or significant foraminal or central canal stenosis. There is enhancing T1 hypointense lesion within the left posterior body and left pedicle of T5, possibly an atypical hemangioma. There are a few additional smaller hemangiomas. The conus terminates at L2. There is a large simple appearing left renal cyst. IMPRESSION: 1. Abnormal T2 hyperintensity and enhancement involving the majority of the spinal cord caliber at C6-C7 to T6. This measures approximately 10 cm in length. The differential includes acute transverse myelitis, subacute spinal cord infarction with associated enhancement, and less likely, intramedullary neoplasm. This is also characterized on the noncontrast cervical spine MRI performed on the same date. 2. T1 hypointense enhancing lesion within the left posterior body and pedicle of T5. This may be an atypical hemangioma. However, if there is a history of primary malignancy, the possibility of a metastasis is not excluded. 3. No evidence of thoracic foraminal or central canal stenosis.
[2016-11-17] MEDS: ASPIRIN 325 MG TABLET PO SCH (17:32)
[2016-11-17 19:00] VITALS: BP 154/80
[2016-11-17 23:30] VITALS: BP 191/97
[2016-11-17 23:31] VITALS: BP 188/107
[2016-11-18 03:02] VITALS: BP 147/66
[2016-11-18 03:58] LABS: BASO % 0 % (0-3); EOS % 1 % (0-3); HEMATOCRIT 37.9 % (36.0-47.0); HEMOGLOBIN 12.6 g/dL (12.0-15.5); LYMPH # 1.7 x10^3/uL (1.0-4.8); LYMPH % 16 % (24-48); MEAN CORPUSCULAR HEMOGLOBIN 29 pg (25-35); MEAN CORPUSCULAR HGB CONC 33 g/dL (31-37); MEAN CORPUSCULAR VOLUME 87 fL (79-100); MONO % 10 % (0-9); NEUT % 73 % (31-73); PLATELET COUNT 278 x10^3/uL (140-400); RED BLOOD COUNT 4.37 x10^6/uL (3.50-5.40); RED CELL DISTRIBUTION WIDTH 14.4 % (11.5-14.5); WHITE BLOOD COUNT 10.8 x10^3/uL (4.0-11.0)
[2016-11-18 04:14] LABS: CALCIUM 8.9 mg/dL (8.5-10.1); CREATININE 0.6 mg/dL (0.6-1.0); GFR 96.9
[2016-11-18] MEDS: HYDRALAZINE 25 MG TABLET PO SCH ×3 (06:00→22:00)
[2016-11-18] MEDS: PANTOPRAZOLE 40 MG TABLET.DR. PO SCH (06:25)
[2016-11-18] MEDS: methylPREDNISolone 4 MG TABLET. PO SCH ×2 (07:52→20:50)
[2016-11-18] MEDS: ASPIRIN 325 MG TABLET PO SCH (07:52)
[2016-11-18] MEDS: DILTIAZEM HCL 240 MG CAP.ER.24H PO SCH (07:53)
--- NOTE | 2016-11-18 11:25 | PDOC ---
PROGRESS NOTES Assessment Problems Medical Problems: (1) Malignant hypertension Status: Acute (2) Urinary tract infection Status: Acute (3) Weakness Status: Acute Generalized tiredness. Demyelinating changes of cervical and thoracic spine, differential diagnosis includes infarct, multiple sclerosis, and neural myelitis optica, both highly unlikely to present in the 8th decade. I am also keeping the possibility of neoplastic disease in mind. Hypertensive emergency, BP 225/109-124 mmHg. Degenerative spine disease. Obesity. No evidence of acute CVA Refusing to take medications for roman catholic reasons. She has not seen a doctor in 40 years. Plan I discussed risk, benefits, alternatives, and side effects with the patient. She does not want to use any medications and wants God to heal her, but she is willing, after discussion, to undergo a lumbar puncture so that we can gather more information. Subjective She feels much better off of the medications, steroids Objective Vital Signs Date Time Temp Pulse Resp B/P Pulse Ox O2 Delivery O2 Flow Rate FiO2 11/18/16 08:00 Room Air 11/18/16 03:02 98.0 101 18 147/66 92 98.0 Intake and Output 11/18/16 06:59 Intake Total 810 ml Balance 810 ml Intake Oral 810 ml # Voids 10 PHYSICAL EXAM Alert. Oriented to time, place and person. PERRL. EOMI. CN: no focal findings. Muscle tone: normal. Muscle strength: 5/5, except 4/5 left lower extremity DTR: 2+ Plantar reflex: flexor Gait: not examined in bed. Sensory exam: no abnormal findings. No cerebellar signs elicited. Review of Relevant I have reviewed the following items jean (where applicable) has been applied. Labs Laboratory Tests Test 11/18/16 03:25 11/18/16 10:00 White Blood Count 10.8x10^3/uL (4.0-11.0) Red Blood Count 4.37x10^6/uL (3.50-5.40) Hemoglobin 12.6g/dL (12.0-15.5) Hematocrit 37.9% (36.0-47.0) Mean Corpuscular Volume 87fL (79-100) Mean Corpuscular Hemoglobin 29pg (25-35) Mean Corpuscular Hemoglobin Concent 33g/dL (31-37) Red Cell Distribution Width 14.4% (11.5-14.5) Platelet Count 278x10^3/uL (140-400) Neutrophils (%) (Auto) 73% (31-73) Lymphocytes (%) (Auto) 16% (24-48) Monocytes (%) (Auto) 10% (0-9) Eosinophils (%) (Auto) 1% (0-3) Basophils (%) (Auto) 0% (0-3) Neutrophils # (Auto) 7.8x10^3uL (1.8-7.7) Lymphocytes # (Auto) 1.7x10^3/uL (1.0-4.8) Monocytes # (Auto) 1.0x10^3/uL (0.0-1.1) Eosinophils # (Auto) 0.1x10^3/uL (0.0-0.7) Basophils # (Auto) 0.0x10^3/uL (0.0-0.2) Sodium Level 138mmol/L (136-145) Potassium Level 4.0mmol/L (3.5-5.1) Chloride Level 103mmol/L (98-107) Carbon Dioxide Level 29mmol/L (21-32) Anion Gap 6 (6-14) Blood Urea Nitrogen 13mg/dL (7-20) Creatinine 0.6mg/dL (0.6-1.0) Estimated GFR (Cockcroft-Gault) 96.9 Glucose Level 96mg/dL (70-99) 109mg/dL (70-99) Calcium Level 8.9mg/dL (8.5-10.1) Laboratory Tests Test 11/18/16 03:25 11/18/16 10:00 White Blood Count 10.8x10^3/uL (4.0-11.0) Red Blood Count 4.37x10^6/uL (3.50-5.40) Hemoglobin 12.6g/dL (12.0-15.5) Hematocrit 37.9% (36.0-47.0) Mean Corpuscular Volume 87fL (79-100) Mean Corpuscular Hemoglobin 29pg (25-35) Mean Corpuscular Hemoglobin Concent 33g/dL (31-37) Red Cell Distribution Width 14.4% (11.5-14.5) Platelet Count 278x10^3/uL (140-400) Neutrophils (%) (Auto) 73% (31-73) Lymphocytes (%) (Auto) 16% (24-48) Monocytes (%) (Auto) 10% (0-9) Eosinophils (%) (Auto) 1% (0-3) Basophils (%) (Auto) 0% (0-3) Neutrophils # (Auto) 7.8x10^3uL (1.8-7.7) Lymphocytes # (Auto) 1.7x10^3/uL (1.0-4.8) Monocytes # (Auto) 1.0x10^3/uL (0.0-1.1) Eosinophils # (Auto) 0.1x10^3/uL (0.0-0.7) Basophils # (Auto) 0.0x10^3/uL (0.0-0.2) Sodium Level 138mmol/L (136-145) Potassium Level 4.0mmol/L (3.5-5.1) Chloride Level 103mmol/L (98-107) Carbon Dioxide Level 29mmol/L (21-32) Anion Gap 6 (6-14) Blood Urea Nitrogen 13mg/dL (7-20) Creatinine 0.6mg/dL (0.6-1.0) Estimated GFR (Cockcroft-Gault) 96.9 Glucose Level 96mg/dL (70-99) 109mg/dL (70-99) Calcium Level 8.9mg/dL (8.5-10.1) Microbiology 11/12/16 Urine Culture - Final, Complete 11/12/16 Urine Culture Result 1 (GÓMEZ) - Final, Complete Medications Current Medications Sodium Chloride 500 ml @ 500 mls/hr 1X ONCE IV Last administered on 01:35; Start 11/12/16 at 01:00; Stop 11/12/16 at 01:59; Status DC Nitroglycerin/ Dextrose (Nitroglycerin Drip) 250 ml @ 0 mls/hr 1X ONCE IV Last administered on 11/12/16 01:35; Start 11/12/16 at 01:15; Stop 11/12/16 at 01:16; Status DC Metoprolol Tartrate 12.5 mg 12.5 mg 1X ONCE PO Last administered on 11/12/16 01:34; Start 11/12/16 at 01:15; Stop 11/12/16 at 01:16; Status DC Ceftriaxone Sodium 50 ml @ 100 mls/hr 1X ONCE IV Last administered on 01:34; Start 11/12/16 at 01:15; Stop 11/12/16 at 01:44; Status DC Ceftriaxone Sodium/Sodium Chloride (Rocephin/Iv Sodium Chloride 0.9% 50ml) 50 ml @ 100 mls/hr Q24H IV Last administered on 11/14/16 20:54; Start 11/12/16 at 21:00; Stop 11/15/16 at 11:34; Status DC Ondansetron HCl (Zofran) 4 mg PRN Q8HRS PRN IV NAUSEA/VOMITING; Start 11/12/16 at 03:00; Stop 11/13/16 at 02:59; Status DC Metoprolol Tartrate (Lopressor) 25 mg BID PO ; Start 11/12/16 at 10:30; Stop at 10:35; Status DC Hydralazine HCl (Apresoline) 10 mg PRN Q4HRS PRN IVP ELEVATED BP, SEE COMMENTS Last administered on 11/12/16 12:05; Start 11/12/16 at 10:30 Diltiazem HCl (Cardizem 24hr Cd) 180 mg DAILY PO Last administered on 11:11; Start 11/12/16 at 11:00; Stop 11/12/16 at 12:44; Status DC Diltiazem HCl (Cardizem 24hr Cd) 240 mg DAILY PO Last administered on 09:44; Start 11/13/16 at 09:00 Hydralazine HCl 25 mg 25 mg Q8HRS PO Last administered on 11/17/16 23:36; Start 11/12/16 at 14:00 Sodium Chloride (Iv Sodium Chloride 0.9% 1000ml Bag) 1,000 ml @ 100 mls/hr Q10H IV Last administered on 11/13/16 23:42; Start 11/12/16 at 13:30; Stop 11/17/16 at 06:13; Status DC Gabapentin (Neurontin) 100 mg TID PO Last administered on 11/14/16 10:12; Start 11/12/16 at 21:00; Stop 11/14/16 at 13:40; Status DC Gadobutrol (Gadavist) 10 mmol 1X ONCE IV Last administered on 11/13/16 16:44 ; Start 11/13/16 at 16:30; Stop 11/13/16 at 16:31; Status DC Gabapentin (Neurontin) 300 mg TID PO Last administered on 11/15/16 21:09; Start 11/14/16 at 14:00; Stop 11/16/16 at 11:15; Status DC Methylprednisolone (Medrol) 8 mg BID PO ; Start 11/14/16 at 09:00; Stop at 21:01; Status Cancel Methylprednisolone (Medrol) 4 mg BIDPCLD PO ; Start 11/14/16 at 12:30; Stop at 17:31; Status Cancel Methylprednisolone (Medrol) 4 mg TIDPC PO Last administered on 11/15/16 17:30 ; Start 11/15/16 at 08:30; Stop 11/15/16 at 17:31; Status DC Methylprednisolone (Medrol) 8 mg QHS PO Last administered on 11/15/16 21:09; Start 11/15/16 at 21:00; Stop 11/15/16 at 21:01; Status DC Methylprednisolone (Medrol) 4 mg QIDAFTMEAL PO Last administered on 11/16/16 12 :59; Start 11/16/16 at 09:00; Stop 11/16/16 at 21:01; Status DC Methylprednisolone (Medrol) 4 mg TID PO ; Start 11/17/16 at 09:00; Stop 11/17/16 at 21:01; Status DC Methylprednisolone (Medrol) 4 mg BID PO ; Start 11/18/16 at 09:00; Stop 11/18/16 at 21:01 Methylprednisolone (Medrol) 4 mg DAILY PO ; Start 11/19/16 at 09:00; Stop at 09:01 Pantoprazole Sodium (Protonix) 40 mg DAILYAC PO ; Start 11/14/16 at 19:10; Stop 11/15/16 at 05:25; Status DC Methylprednisolone (Medrol) 24 mg 1X ONCE PO Last administered on 11/15/16 00 :28; Start 11/15/16 at 00:30; Stop 11/15/16 at 00:31; Status DC Pantoprazole Sodium (Protonix) 40 mg DAILYAC PO ; Start 11/15/16 at 05:25 Gabapentin (Neurontin) 300 mg STK-MED ONCE PO ; Start 11/16/16 at 07:55; Stop 11/16/16 at 07:56; Status DC Gadobutrol (Gadavist) 10 mmol 1X ONCE IV Last administered on 11/17/16t 16:07; Start 11/17/16 at 16:00; Stop 11/17/16 at 16:01; Status DC Aspirin (Haylee Aspirin) 325 mg DAILYWBKFT PO ; Start 11/17/16 at 18:00 Active Scripts Active Reported No Known Medications Prior To Admisstion (Info) Each 1 Each Vitals/I & O Vital Sign - Last 24 Hours 11/17/16 11/17/16 11/17/16 11/17/16 13:01 19:00 20:00 23:30 Temp 97.7 98.1 97.7 98.1 Pulse 89 110 97 Resp 18 18 B/P 159/79 154/80 191/97 Pulse Ox 94 93 O2 Delivery Room Air Room Air Room Air 11/17/16 11/17/16 11/18/16 11/18/16 23:31 23:36 03:02 08:00 Temp 98.0 98.0 Pulse 97 101 Resp 18 B/P 188/107 188/107 147/66 Pulse Ox 92 O2 Delivery Room Air Room Air Intake and Output 11/17/16 11/17/16 11/18/16 14:59 22:59 06:59 Intake Total 360 ml 450 ml Balance 360 ml 450 ml Images Brain MRI, 11/12: Brain parenchymal volume loss and mild probable small-vessel ischemic disease. No acute intracranial findings. Lumbar MRI, 11/13: mild degenerative changes Thoracic MRI without contrast, 11/16: 1. Spinal cord expansion with associated abnormal signal from C7-T1 to the mid aspect of T6. The differential includes acute transverse myelitis as well as spinal cord infarction and an intramedullary neoplasm. Further evaluation with postcontrast images of the thoracic spine and pre and postcontrast images of the cervical spine is recommended. The patient refused postcontrast imaging at the time of this exam. 2. T2 hyperintense and T1 hypointense lesion within the left posterior body and pedicle of T5. Given the presence of multiple small hemangiomas, this may represent an atypical hemangioma. If there is a history of primary malignancy, CT images through this region may be useful for characterization. 3. No evidence of thoracic foraminal or central canal stenosis. 4. Large left renal cyst. Thoracic MRI with contrast, 11/17: 1. Abnormal T2 hyperintensity and enhancement involving the majority of the spinal cord caliber at C6-C7 to T6. This measures approximately 10 cm in length. The differential includes acute transverse myelitis, subacute spinal cord infarction with associated enhancement, and less likely, intramedullary neoplasm. This is also characterized on the noncontrast cervical spine MRI performed on the same date. 2. T1 hypointense enhancing lesion within the left posterior body and pedicle of T5. This may be an atypical hemangioma. However, if there is a history of primary malignancy, the possibility of a metastasis is not excluded. 3. No evidence of thoracic foraminal or central canal stenosis. Cervical MRI, 11/18: 1. Abnormal T2 hyperintensity and enhancement within the left ventral and central aspects of the spinal cord from C6-C7 to the mid aspect of T6. The differential diagnosis includes acute transverse myelitis, subacute spinal cord infarction, and less likely, intramedullary neoplasm. 2. Degenerative change within the cervical spine predominantly at C4-C5. 3. Cervical kyphosis. 4. Enhancing T2 hyperintense and T1 hypointense lesion within the left posterior aspect of T5 and the left T5 pedicle. Given the presence of hemangiomas, this may were present an atypical hemangioma. If there is a history of primary malignancy, the possibility of a metastasis is not excluded. LISA BECERRA MD Nov 18, 2016 11:25
[2016-11-18 11:26] LABS: FOLATE 15.84 ng/ml (3.2-20.0)
--- NOTE | 2016-11-18 13:11 | PDOC ---
Provider Note Provider Note The fluoro guided LP was performed without difficulty utiilizing a 25g Marroquin needle. 11cc of clear CSF was removed and sent to the lab for appropriate studies. The patient left the Radiology Department in stable condition. DOT STAPLES MD Nov 18, 2016 13:11
--- NOTE | 2016-11-18 14:08 | RAD ---
Fluoroscopically guided lumbar puncture, 11/18/2016: History: Cervical and thoracic demyelinating disease Under local anesthesia, aseptic conditions and fluoroscopic guidance a lumbar puncture was performed at the L2 level utilizing a 25-gauge Taz spinal needle. Good clear CSF flow was obtained following which 11 cc of CSF was removed and sent to lab for appropriate studies. The spinal needle was then removed and hemostasis obtained. 0.9 minutes of fluoroscopy time was utilized. One fluoroscopic spot image was recorded. The patient tolerated the procedure well and was returned to the floor in stable condition.
--- NOTE | 2016-11-18 14:44 | PDOC ---
PROGRESS NOTES Chief Complaint Chief Complaint cc: Left lower extremity weakness -History of cholecystectomy -Hiatal hernia -Obesity -Transient ischemic attack -Hypertension -Early dementia History of Present Illness History of Present Illness Plan LP today back pain and weakness odd affect, discussed spiritual care, complained of bedside commode for hurting her skin Vitals Vitals Vital Signs Date Time Temp Pulse Resp B/P Pulse Ox O2 Delivery O2 Flow Rate FiO2 11/18/16 08:00 Room Air 11/18/16 03:02 98.0 101 18 147/66 92 98.0 Physical Exam General: Alert, Oriented X3, Cooperative, No acute distress Heart: Regular rate (tachycardic), Normal S1, Normal S2 Lungs: Clear, Other (No chest retractions) Abdomen: Normal bowel sounds, Soft, No tenderness, No hepatosplenomegaly Extremities: No cyanosis, No edema, Normal pulses, No tenderness/swelling Skin: No rashes, No breakdown (Bruising on left hand) Labs LABS Laboratory Tests Test 11/18/16 03:25 11/18/16 10:00 White Blood Count 10.8x10^3/uL (4.0-11.0) Red Blood Count 4.37x10^6/uL (3.50-5.40) Hemoglobin 12.6g/dL (12.0-15.5) Hematocrit 37.9% (36.0-47.0) Mean Corpuscular Volume 87fL (79-100) Mean Corpuscular Hemoglobin 29pg (25-35) Mean Corpuscular Hemoglobin Concent 33g/dL (31-37) Red Cell Distribution Width 14.4% (11.5-14.5) Platelet Count 278x10^3/uL (140-400) Neutrophils (%) (Auto) 73% (31-73) Lymphocytes (%) (Auto) 16% (24-48) Monocytes (%) (Auto) 10% (0-9) Eosinophils (%) (Auto) 1% (0-3) Basophils (%) (Auto) 0% (0-3) Neutrophils # (Auto) 7.8x10^3uL (1.8-7.7) Lymphocytes # (Auto) 1.7x10^3/uL (1.0-4.8) Monocytes # (Auto) 1.0x10^3/uL (0.0-1.1) Eosinophils # (Auto) 0.1x10^3/uL (0.0-0.7) Basophils # (Auto) 0.0x10^3/uL (0.0-0.2) Sodium Level 138mmol/L (136-145) Potassium Level 4.0mmol/L (3.5-5.1) Chloride Level 103mmol/L (98-107) Carbon Dioxide Level 29mmol/L (21-32) Anion Gap 6 (6-14) Blood Urea Nitrogen 13mg/dL (7-20) Creatinine 0.6mg/dL (0.6-1.0) Estimated GFR (Cockcroft-Gault) 96.9 Glucose Level 96mg/dL (70-99) 109mg/dL (70-99) Calcium Level 8.9mg/dL (8.5-10.1) Erythrocyte Sedimentation Rate 45 (0-25) Vitamin B12 Level 531pg/mL (247-911) Serum Folate 15.84ng/ml (3.2-20.0) Review of Systems Review of Systems skin pain while stooling back pain, weakness Assessment and Plan Assessmemt and Plan Problems Medical Problems: (1) Malignant hypertension Status: Acute (2) Urinary tract infection Status: Acute (3) Weakness Status: Acute Problems: Comment Review of Relevant I have reviewed the following items jean (where applicable) has been applied. Labs Laboratory Tests Test 11/18/16 03:25 11/18/16 10:00 White Blood Count 10.8x10^3/uL (4.0-11.0) Red Blood Count 4.37x10^6/uL (3.50-5.40) Hemoglobin 12.6g/dL (12.0-15.5) Hematocrit 37.9% (36.0-47.0) Mean Corpuscular Volume 87fL (79-100) Mean Corpuscular Hemoglobin 29pg (25-35) Mean Corpuscular Hemoglobin Concent 33g/dL (31-37) Red Cell Distribution Width 14.4% (11.5-14.5) Platelet Count 278x10^3/uL (140-400) Neutrophils (%) (Auto) 73% (31-73) Lymphocytes (%) (Auto) 16% (24-48) Monocytes (%) (Auto) 10% (0-9) Eosinophils (%) (Auto) 1% (0-3) Basophils (%) (Auto) 0% (0-3) Neutrophils # (Auto) 7.8x10^3uL (1.8-7.7) Lymphocytes # (Auto) 1.7x10^3/uL (1.0-4.8) Monocytes # (Auto) 1.0x10^3/uL (0.0-1.1) Eosinophils # (Auto) 0.1x10^3/uL (0.0-0.7) Basophils # (Auto) 0.0x10^3/uL (0.0-0.2) Sodium Level 138mmol/L (136-145) Potassium Level 4.0mmol/L (3.5-5.1) Chloride Level 103mmol/L (98-107) Carbon Dioxide Level 29mmol/L (21-32) Anion Gap 6 (6-14) Blood Urea Nitrogen 13mg/dL (7-20) Creatinine 0.6mg/dL (0.6-1.0) Estimated GFR (Cockcroft-Gault) 96.9 Glucose Level 96mg/dL (70-99) 109mg/dL (70-99) Calcium Level 8.9mg/dL (8.5-10.1) Erythrocyte Sedimentation Rate 45 (0-25) Vitamin B12 Level 531pg/mL (247-911) Serum Folate 15.84ng/ml (3.2-20.0) Laboratory Tests Test 11/18/16 03:25 11/18/16 10:00 White Blood Count 10.8x10^3/uL (4.0-11.0) Red Blood Count 4.37x10^6/uL (3.50-5.40) Hemoglobin 12.6g/dL (12.0-15.5) Hematocrit 37.9% (36.0-47.0) Mean Corpuscular Volume 87fL (79-100) Mean Corpuscular Hemoglobin 29pg (25-35) Mean Corpuscular Hemoglobin Concent 33g/dL (31-37) Red Cell Distribution Width 14.4% (11.5-14.5) Platelet Count 278x10^3/uL (140-400) Neutrophils (%) (Auto) 73% (31-73) Lymphocytes (%) (Auto) 16% (24-48) Monocytes (%) (Auto) 10% (0-9) Eosinophils (%) (Auto) 1% (0-3) Basophils (%) (Auto) 0% (0-3) Neutrophils # (Auto) 7.8x10^3uL (1.8-7.7) Lymphocytes # (Auto) 1.7x10^3/uL (1.0-4.8) Monocytes # (Auto) 1.0x10^3/uL (0.0-1.1) Eosinophils # (Auto) 0.1x10^3/uL (0.0-0.7) Basophils # (Auto) 0.0x10^3/uL (0.0-0.2) Sodium Level 138mmol/L (136-145) Potassium Level 4.0mmol/L (3.5-5.1) Chloride Level 103mmol/L (98-107) Carbon Dioxide Level 29mmol/L (21-32) Anion Gap 6 (6-14) Blood Urea Nitrogen 13mg/dL (7-20) Creatinine 0.6mg/dL (0.6-1.0) Estimated GFR (Cockcroft-Gault) 96.9 Glucose Level 96mg/dL (70-99) 109mg/dL (70-99) Calcium Level 8.9mg/dL (8.5-10.1) Erythrocyte Sedimentation Rate 45 (0-25) Vitamin B12 Level 531pg/mL (247-911) Serum Folate 15.84ng/ml (3.2-20.0) Microbiology 11/12/16 Urine Culture - Final, Complete 11/12/16 Urine Culture Result 1 (GÓMEZ) - Final, Complete Medications Current Medications Sodium Chloride 500 ml @ 500 mls/hr 1X ONCE IV Last administered on 01:35; Start 11/12/16 at 01:00; Stop 11/12/16 at 01:59; Status DC Nitroglycerin/ Dextrose (Nitroglycerin Drip) 250 ml @ 0 mls/hr 1X ONCE IV Last administered on 11/12/16 01:35; Start 11/12/16 at 01:15; Stop 11/12/16 at 01:16; Status DC Metoprolol Tartrate 12.5 mg 12.5 mg 1X ONCE PO Last administered on 11/12/16 01:34; Start 11/12/16 at 01:15; Stop 11/12/16 at 01:16; Status DC Ceftriaxone Sodium 50 ml @ 100 mls/hr 1X ONCE IV Last administered on 01:34; Start 11/12/16 at 01:15; Stop 11/12/16 at 01:44; Status DC Ceftriaxone Sodium/Sodium Chloride (Rocephin/Iv Sodium Chloride 0.9% 50ml) 50 ml @ 100 mls/hr Q24H IV Last administered on 11/14/16 20:54; Start 11/12/16 at 21:00; Stop 11/15/16 at 11:34; Status DC Ondansetron HCl (Zofran) 4 mg PRN Q8HRS PRN IV NAUSEA/VOMITING; Start 11/12/16 at 03:00; Stop 11/13/16 at 02:59; Status DC Metoprolol Tartrate (Lopressor) 25 mg BID PO ; Start 11/12/16 at 10:30; Stop at 10:35; Status DC Hydralazine HCl (Apresoline) 10 mg PRN Q4HRS PRN IVP ELEVATED BP, SEE COMMENTS Last administered on 11/12/16 12:05; Start 11/12/16 at 10:30 Diltiazem HCl (Cardizem 24hr Cd) 180 mg DAILY PO Last administered on 11:11; Start 11/12/16 at 11:00; Stop 11/12/16 at 12:44; Status DC Diltiazem HCl (Cardizem 24hr Cd) 240 mg DAILY PO Last administered on 09:44; Start 11/13/16 at 09:00 Hydralazine HCl 25 mg 25 mg Q8HRS PO Last administered on 11/17/16 23:36; Start 11/12/16 at 14:00 Sodium Chloride (Iv Sodium Chloride 0.9% 1000ml Bag) 1,000 ml @ 100 mls/hr Q10H IV Last administered on 11/13/16 23:42; Start 11/12/16 at 13:30; Stop 11/17/16 at 06:13; Status DC Gabapentin (Neurontin) 100 mg TID PO Last administered on 11/14/16 10:12; Start 11/12/16 at 21:00; Stop 11/14/16 at 13:40; Status DC Gadobutrol (Gadavist) 10 mmol 1X ONCE IV Last administered on 11/13/16 16:44 ; Start 11/13/16 at 16:30; Stop 11/13/16 at 16:31; Status DC Gabapentin (Neurontin) 300 mg TID PO Last administered on 11/15/16 21:09; Start 11/14/16 at 14:00; Stop 11/16/16 at 11:15; Status DC Methylprednisolone (Medrol) 8 mg BID PO ; Start 11/14/16 at 09:00; Stop at 21:01; Status Cancel Methylprednisolone (Medrol) 4 mg BIDPCLD PO ; Start 11/14/16 at 12:30; Stop at 17:31; Status Cancel Methylprednisolone (Medrol) 4 mg TIDPC PO Last administered on 11/15/16 17:30 ; Start 11/15/16 at 08:30; Stop 11/15/16 at 17:31; Status DC Methylprednisolone (Medrol) 8 mg QHS PO Last administered on 11/15/16 21:09; Start 11/15/16 at 21:00; Stop 11/15/16 at 21:01; Status DC Methylprednisolone (Medrol) 4 mg QIDAFTMEAL PO Last administered on 11/16/16 12 :59; Start 11/16/16 at 09:00; Stop 11/16/16 at 21:01; Status DC Methylprednisolone (Medrol) 4 mg TID PO ; Start 11/17/16 at 09:00; Stop 11/17/16 at 21:01; Status DC Methylprednisolone (Medrol) 4 mg BID PO ; Start 11/18/16 at 09:00; Stop 11/18/16 at 21:01 Methylprednisolone (Medrol) 4 mg DAILY PO ; Start 11/19/16 at 09:00; Stop at 09:01 Pantoprazole Sodium (Protonix) 40 mg DAILYAC PO ; Start 11/14/16 at 19:10; Stop 11/15/16 at 05:25; Status DC Methylprednisolone (Medrol) 24 mg 1X ONCE PO Last administered on 11/15/16 00 :28; Start 11/15/16 at 00:30; Stop 11/15/16 at 00:31; Status DC Pantoprazole Sodium (Protonix) 40 mg DAILYAC PO ; Start 11/15/16 at 05:25 Gabapentin (Neurontin) 300 mg STK-MED ONCE PO ; Start 11/16/16 at 07:55; Stop 11/16/16 at 07:56; Status DC Gadobutrol (Gadavist) 10 mmol 1X ONCE IV Last administered on 11/17/16 16:07; Start 11/17/16 at 16:00; Stop 11/17/16 at 16:01; Status DC Aspirin (Haylee Aspirin) 325 mg DAILYWBKFT PO ; Start 11/17/16 at 18:00 Active Scripts Active Reported No Known Medications Prior To Admisstion (Info) Each 1 Each Vitals/I & O Vital Sign - Last 24 Hours 11/17/16 11/17/16 11/17/16 11/17/16 19:00 20:00 23:30 23:31 Temp 97.7 98.1 97.7 98.1 Pulse 110 97 Resp 18 18 B/P 154/80 191/97 188/107 Pulse Ox 94 93 O2 Delivery Room Air Room Air Room Air 11/17/16 11/18/16 11/18/16 23:36 03:02 08:00 Temp 98.0 98.0 Pulse 97 101 Resp 18 B/P 188/107 147/66 Pulse Ox 92 O2 Delivery Room Air Room Air Intake and Output 11/17/16 11/17/16 11/18/16 14:59 22:59 06:59 Intake Total 360 ml 450 ml Balance 360 ml 450 ml WHITNEY MACK MD Nov 18, 2016 14:44
[2016-11-18 15:13] LABS: CSF GLUCOSE 52 mg/dL (37-70); CSF PROTEIN 37.9 mg/dL (15.0-45.0)
[2016-11-18 15:43] LABS: CSF CLARITY CLEAR; CSF COLOR COLORLESS
[2016-11-18 15:44] LABS: CSF PMN % 0 %
--- NOTE | 2016-11-18 18:23 | PDOC ---
PROGRESS NOTES Subjective Subjective She is asking for left ankle brace. Objective Objective Vital Signs Date Time Temp Pulse Resp B/P Pulse Ox O2 Delivery O2 Flow Rate FiO2 11/18/16 08:00 Room Air 11/18/16 03:02 98.0 101 18 147/66 92 98.0 Intake and Output 11/18/16 07:00 Intake Total 810 ml Balance 810 ml Intake Oral 810 ml # Voids 10 Physical Exam Physical Exam Mri scan report of cervical spine noted. This explains her left lower extremity antigravity muscle weakness. Assessment Assessment Problems Medical Problems: (1) Malignant hypertension Status: Acute (2) Urinary tract infection Status: Acute (3) Weakness Status: Acute Plan Plan of Care Agree with lumbar puncture. Comment Review of Relevant I have reviewed the following items jean (where applicable) has been applied. Labs Laboratory Tests Test 11/18/16 03:25 11/18/16 10:00 11/18/16 13:15 White Blood Count 10.8x10^3/uL (4.0-11.0) Red Blood Count 4.37x10^6/uL (3.50-5.40) Hemoglobin 12.6g/dL (12.0-15.5) Hematocrit 37.9% (36.0-47.0) Mean Corpuscular Volume 87fL (79-100) Mean Corpuscular Hemoglobin 29pg (25-35) Mean Corpuscular Hemoglobin Concent 33g/dL (31-37) Red Cell Distribution Width 14.4% (11.5-14.5) Platelet Count 278x10^3/uL (140-400) Neutrophils (%) (Auto) 73% (31-73) Lymphocytes (%) (Auto) 16% (24-48) Monocytes (%) (Auto) 10% (0-9) Eosinophils (%) (Auto) 1% (0-3) Basophils (%) (Auto) 0% (0-3) Neutrophils # (Auto) 7.8x10^3uL (1.8-7.7) Lymphocytes # (Auto) 1.7x10^3/uL (1.0-4.8) Monocytes # (Auto) 1.0x10^3/uL (0.0-1.1) Eosinophils # (Auto) 0.1x10^3/uL (0.0-0.7) Basophils # (Auto) 0.0x10^3/uL (0.0-0.2) Sodium Level 138mmol/L (136-145) Potassium Level 4.0mmol/L (3.5-5.1) Chloride Level 103mmol/L (98-107) Carbon Dioxide Level 29mmol/L (21-32) Anion Gap 6 (6-14) Blood Urea Nitrogen 13mg/dL (7-20) Creatinine 0.6mg/dL (0.6-1.0) Estimated GFR (Cockcroft-Gault) 96.9 Glucose Level 96mg/dL (70-99) 109mg/dL (70-99) Calcium Level 8.9mg/dL (8.5-10.1) Erythrocyte Sedimentation Rate 45 (0-25) Vitamin B12 Level 531pg/mL (247-911) Serum Folate 15.84ng/ml (3.2-20.0) CSF Tube Number 4 CSF Volume 4.0 CSF Color Colorless CSF Clarity Clear CSF WBC 3 CSF RBC 0 CSF Mononuclear WBCs % 3% CSF Polynuclear WBCs (%) 0% CSF Glucose 52mg/dL (37-70) CSF Total Protein 37.9mg/dL (15.0-45.0) Laboratory Tests Test 11/18/16 03:25 11/18/16 10:00 11/18/16 13:15 White Blood Count 10.8x10^3/uL (4.0-11.0) Red Blood Count 4.37x10^6/uL (3.50-5.40) Hemoglobin 12.6g/dL (12.0-15.5) Hematocrit 37.9% (36.0-47.0) Mean Corpuscular Volume 87fL (79-100) Mean Corpuscular Hemoglobin 29pg (25-35) Mean Corpuscular Hemoglobin Concent 33g/dL (31-37) Red Cell Distribution Width 14.4% (11.5-14.5) Platelet Count 278x10^3/uL (140-400) Neutrophils (%) (Auto) 73% (31-73) Lymphocytes (%) (Auto) 16% (24-48) Monocytes (%) (Auto) 10% (0-9) Eosinophils (%) (Auto) 1% (0-3) Basophils (%) (Auto) 0% (0-3) Neutrophils # (Auto) 7.8x10^3uL (1.8-7.7) Lymphocytes # (Auto) 1.7x10^3/uL (1.0-4.8) Monocytes # (Auto) 1.0x10^3/uL (0.0-1.1) Eosinophils # (Auto) 0.1x10^3/uL (0.0-0.7) Basophils # (Auto) 0.0x10^3/uL (0.0-0.2) Sodium Level 138mmol/L (136-145) Potassium Level 4.0mmol/L (3.5-5.1) Chloride Level 103mmol/L (98-107) Carbon Dioxide Level 29mmol/L (21-32) Anion Gap 6 (6-14) Blood Urea Nitrogen 13mg/dL (7-20) Creatinine 0.6mg/dL (0.6-1.0) Estimated GFR (Cockcroft-Gault) 96.9 Glucose Level 96mg/dL (70-99) 109mg/dL (70-99) Calcium Level 8.9mg/dL (8.5-10.1) Erythrocyte Sedimentation Rate 45 (0-25) Vitamin B12 Level 531pg/mL (247-911) Serum Folate 15.84ng/ml (3.2-20.0) CSF Tube Number 4 CSF Volume 4.0 CSF Color Colorless CSF Clarity Clear CSF WBC 3 CSF RBC 0 CSF Mononuclear WBCs % 3% CSF Polynuclear WBCs (%) 0% CSF Glucose 52mg/dL (37-70) CSF Total Protein 37.9mg/dL (15.0-45.0) Microbiology 11/18/16 Gram Stain - Final, Complete 11/12/16 Urine Culture - Final, Complete 11/12/16 Urine Culture Result 1 (GÓMEZ) - Final, Complete Medications Current Medications Sodium Chloride 500 ml @ 500 mls/hr 1X ONCE IV Last administered on 01:35; Start 11/12/16 at 01:00; Stop 11/12/16 at 01:59; Status DC Nitroglycerin/ Dextrose (Nitroglycerin Drip) 250 ml @ 0 mls/hr 1X ONCE IV Last administered on 11/12/16 01:35; Start 11/12/16 at 01:15; Stop 11/12/16 at 01:16; Status DC Metoprolol Tartrate 12.5 mg 12.5 mg 1X ONCE PO Last administered on 11/12/16 01:34; Start 11/12/16 at 01:15; Stop 11/12/16 at 01:16; Status DC Ceftriaxone Sodium 50 ml @ 100 mls/hr 1X ONCE IV Last administered on 01:34; Start 11/12/16 at 01:15; Stop 11/12/16 at 01:44; Status DC Ceftriaxone Sodium/Sodium Chloride (Rocephin/Iv Sodium Chloride 0.9% 50ml) 50 ml @ 100 mls/hr Q24H IV Last administered on 11/14/16 20:54; Start 11/12/16 at 21:00; Stop 11/15/16 at 11:34; Status DC Ondansetron HCl (Zofran) 4 mg PRN Q8HRS PRN IV NAUSEA/VOMITING; Start 11/12/16 at 03:00; Stop 11/13/16 at 02:59; Status DC Metoprolol Tartrate (Lopressor) 25 mg BID PO ; Start 11/12/16 at 10:30; Stop at 10:35; Status DC Hydralazine HCl (Apresoline) 10 mg PRN Q4HRS PRN IVP ELEVATED BP, SEE COMMENTS Last administered on 11/12/16 12:05; Start 11/12/16 at 10:30 Diltiazem HCl (Cardizem 24hr Cd) 180 mg DAILY PO Last administered on 11:11; Start 11/12/16 at 11:00; Stop 11/12/16 at 12:44; Status DC Diltiazem HCl (Cardizem 24hr Cd) 240 mg DAILY PO Last administered on 09:44; Start 11/13/16 at 09:00 Hydralazine HCl 25 mg 25 mg Q8HRS PO Last administered on 11/17/16 23:36; Start 11/12/16 at 14:00 Sodium Chloride (Iv Sodium Chloride 0.9% 1000ml Bag) 1,000 ml @ 100 mls/hr Q10H IV Last administered on 11/13/16 23:42; Start 11/12/16 at 13:30; Stop 11/17/16 at 06:13; Status DC Gabapentin (Neurontin) 100 mg TID PO Last administered on 11/14/16 10:12; Start 11/12/16 at 21:00; Stop 11/14/16 at 13:40; Status DC Gadobutrol (Gadavist) 10 mmol 1X ONCE IV Last administered on 11/13/16 16:44 ; Start 11/13/16 at 16:30; Stop 11/13/16 at 16:31; Status DC Gabapentin (Neurontin) 300 mg TID PO Last administered on 11/15/16 21:09; Start 11/14/16 at 14:00; Stop 11/16/16 at 11:15; Status DC Methylprednisolone (Medrol) 8 mg BID PO ; Start 11/14/16 at 09:00; Stop at 21:01; Status Cancel Methylprednisolone (Medrol) 4 mg BIDPCLD PO ; Start 11/14/16 at 12:30; Stop at 17:31; Status Cancel Methylprednisolone (Medrol) 4 mg TIDPC PO Last administered on 11/15/16 17:30 ; Start 11/15/16 at 08:30; Stop 11/15/16 at 17:31; Status DC Methylprednisolone (Medrol) 8 mg QHS PO Last administered on 11/15/16 21:09; Start 11/15/16 at 21:00; Stop 11/15/16 at 21:01; Status DC Methylprednisolone (Medrol) 4 mg QIDAFTMEAL PO Last administered on 11/16/16 12 :59; Start 11/16/16 at 09:00; Stop 11/16/16 at 21:01; Status DC Methylprednisolone (Medrol) 4 mg TID PO ; Start 11/17/16 at 09:00; Stop 11/17/16 at 21:01; Status DC Methylprednisolone (Medrol) 4 mg BID PO ; Start 11/18/16 at 09:00; Stop 11/18/16 at 21:01 Methylprednisolone (Medrol) 4 mg DAILY PO ; Start 11/19/16 at 09:00; Stop at 09:01 Pantoprazole Sodium (Protonix) 40 mg DAILYAC PO ; Start 11/14/16 at 19:10; Stop 11/15/16 at 05:25; Status DC Methylprednisolone (Medrol) 24 mg 1X ONCE PO Last administered on 11/15/16 00 :28; Start 11/15/16 at 00:30; Stop 11/15/16 at 00:31; Status DC Pantoprazole Sodium (Protonix) 40 mg DAILYAC PO ; Start 11/15/16 at 05:25 Gabapentin (Neurontin) 300 mg STK-MED ONCE PO ; Start 11/16/16 at 07:55; Stop 11/16/16 at 07:56; Status DC Gadobutrol (Gadavist) 10 mmol 1X ONCE IV Last administered on 11/17/16 16:07; Start 11/17/16 at 16:00; Stop 11/17/16 at 16:01; Status DC Aspirin (Haylee Aspirin) 325 mg DAILYWBKFT PO ; Start 11/17/16 at 18:00 Active Scripts Active Reported No Known Medications Prior To Admisstion (Info) Each 1 Each Vitals/I & O Vital Sign - Last 24 Hours 11/17/16 11/17/16 11/17/16 11/17/16 19:00 20:00 23:30 23:31 Temp 97.7 98.1 97.7 98.1 Pulse 110 97 Resp 18 18 B/P 154/80 191/97 188/107 Pulse Ox 94 93 O2 Delivery Room Air Room Air Room Air 11/17/16 11/18/16 11/18/16 23:36 03:02 08:00 Temp 98.0 98.0 Pulse 97 101 Resp 18 B/P 188/107 147/66 Pulse Ox 92 O2 Delivery Room Air Room Air Intake and Output 11/17/16 11/17/16 11/18/16 15:00 23:00 07:00 Intake Total 360 ml 450 ml Balance 360 ml 450 ml RAZ PERKINS MD Nov 18, 2016 18:23
[2016-11-18 19:25] VITALS: BP 129/80
[2016-11-19 04:24] LABS: BASO % 0 % (0-3); EOS % 2 % (0-3); HEMATOCRIT 36.2 % (36.0-47.0); HEMOGLOBIN 11.8 g/dL (12.0-15.5); LYMPH # 1.6 x10^3/uL (1.0-4.8); LYMPH % 15 % (24-48); MEAN CORPUSCULAR HEMOGLOBIN 28 pg (25-35); MEAN CORPUSCULAR HGB CONC 33 g/dL (31-37); MEAN CORPUSCULAR VOLUME 87 fL (79-100); MONO % 10 % (0-9); NEUT % 73 % (31-73); PLATELET COUNT 283 x10^3/uL (140-400); RED BLOOD COUNT 4.15 x10^6/uL (3.50-5.40); RED CELL DISTRIBUTION WIDTH 14.4 % (11.5-14.5); WHITE BLOOD COUNT 10.7 x10^3/uL (4.0-11.0)
[2016-11-19 04:39] LABS: CALCIUM 8.6 mg/dL (8.5-10.1); CREATININE 0.7 mg/dL (0.6-1.0); GFR 81.1; POTASSIUM 4.1 mmol/L (3.5-5.1)
[2016-11-19] MEDS: HYDRALAZINE 25 MG TABLET PO SCH ×3 (06:00→19:58)
[2016-11-19] MEDS: PANTOPRAZOLE 40 MG TABLET.DR. PO SCH (07:30)
[2016-11-19] MEDS: ASPIRIN 325 MG TABLET PO SCH (08:46)
[2016-11-19] MEDS: DILTIAZEM HCL 240 MG CAP.ER.24H PO SCH (08:47)
[2016-11-19] MEDS ORDERED: methylPREDNISolone 4 MG TABLET. PO SCH (09:00)
--- NOTE | 2016-11-19 10:11 | PDOC ---
PROGRESS NOTES Assessment Problems Medical Problems: (1) Malignant hypertension Status: Acute (2) Urinary tract infection Status: Acute (3) Weakness Status: Acute Demyelinating changes of cervical and thoracic spine, differential diagnosis includes infarct, multiple sclerosis, and neural myelitis optica, both highly unlikely to present in the 8th decade. I am also keeping the possibility of neoplastic disease in mind.The lumbar puncture is negative for any type of inflammatory disease so this most likely is an infarction. Hypertensive emergency, BP 225/109-124 mmHg. Degenerative spine disease. Obesity. No evidence of acute CVA Refusing to take medications for sabianist reasons. She has not seen a doctor in [address] angiogram. I did consider referral to a tertiary center for spinal arteriogram but I would like to do start out with the noninvasive study especially given the patient's a version any type of surgical intervention. If for instance we did find a spinal arteriovenous affirmation, I think she would be very adverse to surgical intervention. She is willing to do non- interventional tests. She is not interested in medication treatments. Transfer to [facility] for further rehabilitation. No evidence of a cerebral stroke that would have benefited from tissue plasminogen activator. Lipid profile is favorable and she does not want to take a stand, anyway. Subjective She feels better. Objective Vital Signs Date Time Temp Pulse Resp B/P Pulse Ox O2 Delivery O2 Flow Rate FiO2 11/19/16 08:47 111 129/80 11/18/16 20:00 Room Air 11/18/16 19:25 97.7 20 94 97.7 Intake and Output 11/19/16 06:59 Intake Total 700 ml Output Total 450 ml Balance 250 ml Intake Oral 700 ml Output Urine Total 450 ml # Voids 6 PHYSICAL EXAM Alert. Oriented to time, place and person. PERRL. EOMI. CN: no focal findings. Muscle tone: normal. Muscle strength: 5/5, except 3/5 left lower extremity DTR: 2+ Plantar reflex: flexor Gait: not examined in bed. Sensory exam: no abnormal findings. No cerebellar signs elicited. Review of Relevant I have reviewed the following items jean (where applicable) has been applied. Labs Laboratory Tests Test 11/18/16 03:25 11/18/16 10:00 11/18/16 13:15 11/19/16 03:45 White Blood Count 10.8x10^3/uL (4.0-11.0) 10.7x10^3/uL (4.0-11.0) Red Blood Count 4.37x10^6/uL (3.50-5.40) 4.15x10^6/uL (3.50-5.40) Hemoglobin 12.6g/dL (12.0-15.5) 11.8g/dL (12.0-15.5) Hematocrit 37.9% (36.0-47.0) 36.2% (36.0-47.0) Mean Corpuscular Volume 87fL (79-100) 87fL (79-100) Mean Corpuscular Hemoglobin 29pg (25-35) 28pg (25-35) Mean Corpuscular Hemoglobin Concent 33g/dL (31-37) 33g/dL (31-37) Red Cell Distribution Width 14.4% (11.5-14.5) 14.4% (11.5-14.5) Platelet Count 278x10^3/uL (140-400) 283x10^3/uL (140-400) Neutrophils (%) (Auto) 73% (31-73) 73% (31-73) Lymphocytes (%) (Auto) 16% (24-48) 15% (24-48) Monocytes (%) (Auto) 10% (0-9) 10% (0-9) Eosinophils (%) (Auto) 1% (0-3) 2% (0-3) Basophils (%) (Auto) 0% (0-3) 0% (0-3) Neutrophils # (Auto) 7.8x10^3uL (1.8-7.7) 7.7x10^3uL (1.8-7.7) Lymphocytes # (Auto) 1.7x10^3/uL (1.0-4.8) 1.6x10^3/uL (1.0-4.8) Monocytes # (Auto) 1.0x10^3/uL (0.0-1.1) 1.1x10^3/uL (0.0-1.1) Eosinophils # (Auto) 0.1x10^3/uL (0.0-0.7) 0.2x10^3/uL (0.0-0.7) Basophils # (Auto) 0.0x10^3/uL (0.0-0.2) 0.0x10^3/uL (0.0-0.2) Sodium Level 138mmol/L (136-145) 136mmol/L (136-145) Potassium Level 4.0mmol/L (3.5-5.1) 4.1mmol/L (3.5-5.1) Chloride Level 103mmol/L (98-107) 101mmol/L (98-107) Carbon Dioxide Level 29mmol/L (21-32) 27mmol/L (21-32) Anion Gap 6 (6-14) 8 (6-14) Blood Urea Nitrogen 13mg/dL (7-20) 13mg/dL (7-20) Creatinine 0.6mg/dL (0.6-1.0) 0.7mg/dL (0.6-1.0) Estimated GFR (Cockcroft-Gault) 96.9 81.1 Glucose Level 96mg/dL (70-99) 109mg/dL (70-99) 102mg/dL (70-99) Calcium Level 8.9mg/dL (8.5-10.1) 8.6mg/dL (8.5-10.1) Erythrocyte Sedimentation Rate 45 (0-25) Vitamin B12 Level 531pg/mL (247-911) Serum Folate 15.84ng/ml (3.2-20.0) CSF Tube Number 4 CSF Volume 4.0 CSF Color Colorless CSF Clarity Clear CSF WBC 3 CSF RBC 0 CSF Mononuclear WBCs % 3% CSF Polynuclear WBCs (%) 0% CSF Glucose 52mg/dL (37-70) CSF Total Protein 37.9mg/dL (15.0-45.0) Laboratory Tests Test 11/18/16 13:15 11/19/16 03:45 CSF Tube Number 4 CSF Volume 4.0 CSF Color Colorless CSF Clarity Clear CSF WBC 3 CSF RBC 0 CSF Mononuclear WBCs % 3% CSF Polynuclear WBCs (%) 0% CSF Glucose 52mg/dL (37-70) CSF Total Protein 37.9mg/dL (15.0-45.0) White Blood Count 10.7x10^3/uL (4.0-11.0) Red Blood Count 4.15x10^6/uL (3.50-5.40) Hemoglobin 11.8g/dL (12.0-15.5) Hematocrit 36.2% (36.0-47.0) Mean Corpuscular Volume 87fL (79-100) Mean Corpuscular Hemoglobin 28pg (25-35) Mean Corpuscular Hemoglobin Concent 33g/dL (31-37) Red Cell Distribution Width 14.4% (11.5-14.5) Platelet Count 283x10^3/uL (140-400) Neutrophils (%) (Auto) 73% (31-73) Lymphocytes (%) (Auto) 15% (24-48) Monocytes (%) (Auto) 10% (0-9) Eosinophils (%) (Auto) 2% (0-3) Basophils (%) (Auto) 0% (0-3) Neutrophils # (Auto) 7.7x10^3uL (1.8-7.7) Lymphocytes # (Auto) 1.6x10^3/uL (1.0-4.8) Monocytes # (Auto) 1.1x10^3/uL (0.0-1.1) Eosinophils # (Auto) 0.2x10^3/uL (0.0-0.7) Basophils # (Auto) 0.0x10^3/uL (0.0-0.2) Sodium Level 136mmol/L (136-145) Potassium Level 4.1mmol/L (3.5-5.1) Chloride Level 101mmol/L (98-107) Carbon Dioxide Level 27mmol/L (21-32) Anion Gap 8 (6-14) Blood Urea Nitrogen 13mg/dL (7-20) Creatinine 0.7mg/dL (0.6-1.0) Estimated GFR (Cockcroft-Gault) 81.1 Glucose Level 102mg/dL (70-99) Calcium Level 8.6mg/dL (8.5-10.1) Microbiology 11/18/16 Gram Stain - Final, Complete 11/12/16 Urine Culture - Final, Complete 11/12/16 Urine Culture Result 1 (GÓMEZ) - Final, Complete Medications Current Medications Sodium Chloride 500 ml @ 500 mls/hr 1X ONCE IV Last administered on 01:35; Start 11/12/16 at 01:00; Stop 11/12/16 at 01:59; Status DC Nitroglycerin/ Dextrose (Nitroglycerin Drip) 250 ml @ 0 mls/hr 1X ONCE IV Last administered on 11/12/16 01:35; Start 11/12/16 at 01:15; Stop 11/12/16 at 01:16; Status DC Metoprolol Tartrate 12.5 mg 12.5 mg 1X ONCE PO Last administered on 11/12/16 01:34; Start 11/12/16 at 01:15; Stop 11/12/16 at 01:16; Status DC Ceftriaxone Sodium 50 ml @ 100 mls/hr 1X ONCE IV Last administered on 01:34; Start 11/12/16 at 01:15; Stop 11/12/16 at 01:44; Status DC Ceftriaxone Sodium/Sodium Chloride (Rocephin/Iv Sodium Chloride 0.9% 50ml) 50 ml @ 100 mls/hr Q24H IV Last administered on 11/14/16 20:54; Start 11/12/16 at 21:00; Stop 11/15/16 at 11:34; Status DC Ondansetron HCl (Zofran) 4 mg PRN Q8HRS PRN IV NAUSEA/VOMITING; Start 11/12/16 at 03:00; Stop 11/13/16 at 02:59; Status DC Metoprolol Tartrate (Lopressor) 25 mg BID PO ; Start 11/12/16 at 10:30; Stop at 10:35; Status DC Hydralazine HCl (Apresoline) 10 mg PRN Q4HRS PRN IVP ELEVATED BP, SEE COMMENTS Last administered on 11/12/16 12:05; Start 11/12/16 at 10:30 Diltiazem HCl (Cardizem 24hr Cd) 180 mg DAILY PO Last administered on 11:11; Start 11/12/16 at 11:00; Stop 11/12/16 at 12:44; Status DC Diltiazem HCl (Cardizem 24hr Cd) 240 mg DAILY PO Last administered on 11/19/16 08:47; Start 11/13/16 at 09:00 Hydralazine HCl 25 mg 25 mg Q8HRS PO Last administered on 11/17/16 23:36; Start 11/12/16 at 14:00 Sodium Chloride (Iv Sodium Chloride 0.9% 1000ml Bag) 1,000 ml @ 100 mls/hr Q10H IV Last administered on 11/13/16 23:42; Start 11/12/16 at 13:30; Stop 11/17/16 at 06:13; Status DC Gabapentin (Neurontin) 100 mg TID PO Last administered on 11/14/16 10:12; Start 11/12/16 at 21:00; Stop 11/14/16 at 13:40; Status DC Gadobutrol (Gadavist) 10 mmol 1X ONCE IV Last administered on 11/13/16 16:44 ; Start 11/13/16 at 16:30; Stop 11/13/16 at 16:31; Status DC Gabapentin (Neurontin) 300 mg TID PO Last administered on 11/15/16 21:09; Start 11/14/16 at 14:00; Stop 11/16/16 at 11:15; Status DC Methylprednisolone (Medrol) 8 mg BID PO ; Start 11/14/16 at 09:00; Stop at 21:01; Status Cancel Methylprednisolone (Medrol) 4 mg BIDPCLD PO ; Start 11/14/16 at 12:30; Stop at 17:31; Status Cancel Methylprednisolone (Medrol) 4 mg TIDPC PO Last administered on 11/15/16 17:30 ; Start 11/15/16 at 08:30; Stop 11/15/16 at 17:31; Status DC Methylprednisolone (Medrol) 8 mg QHS PO Last administered on 11/15/16 21:09; Start 11/15/16 at 21:00; Stop 11/15/16 at 21:01; Status DC Methylprednisolone (Medrol) 4 mg QIDAFTMEAL PO Last administered on 11/16/16 12 :59; Start 11/16/16 at 09:00; Stop 11/16/16 at 21:01; Status DC Methylprednisolone (Medrol) 4 mg TID PO ; Start 11/17/16 at 09:00; Stop 11/17/16 at 21:01; Status DC Methylprednisolone (Medrol) 4 mg BID PO ; Start 11/18/16 at 09:00; Stop 11/18/16 at 21:01; Status DC Methylprednisolone (Medrol) 4 mg DAILY PO ; Start 11/19/16 at 09:00; Stop at 09:01; Status DC Pantoprazole Sodium (Protonix) 40 mg DAILYAC PO ; Start 11/14/16 at 19:10; Stop 11/15/16 at 05:25; Status DC Methylprednisolone (Medrol) 24 mg 1X ONCE PO Last administered on 11/15/16 00 :28; Start 11/15/16 at 00:30; Stop 11/15/16 at 00:31; Status DC Pantoprazole Sodium (Protonix) 40 mg DAILYAC PO ; Start 11/15/16 at 05:25 Gabapentin (Neurontin) 300 mg STK-MED ONCE PO ; Start 11/16/16 at 07:55; Stop 11/16/16 at 07:56; Status DC Gadobutrol (Gadavist) 10 mmol 1X ONCE IV Last administered on 11/17/16 16:07; Start 11/17/16 at 16:00; Stop 11/17/16 at 16:01; Status DC Aspirin (Haylee Aspirin) 325 mg DAILYWBKFT PO Last administered on 11/19/16 08: 46; Start 11/17/16 at 18:00 Active Scripts Active Reported No Known Medications Prior To Admisstion (Info) Each 1 Each Vitals/I & O Vital Sign - Last 24 Hours 11/18/16 11/18/16 11/19/16 19:25 20:00 08:47 Temp 97.7 97.7 Pulse 111 111 Resp 20 B/P 129/80 129/80 Pulse Ox 94 O2 Delivery Room Air Room Air Intake and Output 11/18/16 11/18/16 11/19/16 14:59 22:59 06:59 Intake Total 200 ml 500 ml Output Total 100 ml 350 ml Balance 100 ml 150 ml LISA BECERRA MD Nov 19, 2016 10:11
[2016-11-19 11:00] VITALS: BP 174/93
[2016-11-19] MEDS ORDERED: CONTRAST GIVEN MC PRN (12:15)
[2016-11-19] MEDS: hydrALAZINE 20 MG/ML VIAL. IVP PRN (12:20)
[2016-11-19] MEDS ORDERED: IOHEXOL 350 MG/ML 100 ML VIAL. IV ONE (12:30)
--- NOTE | 2016-11-19 12:58 | PDOC ---
PROGRESS NOTES Chief Complaint Chief Complaint cc: Left lower extremity weakness -History of cholecystectomy -Hiatal hernia -Obesity -Transient ischemic attack -Hypertension -Early dementia History of Present Illness History of Present Illness s/p LP Neuro following, CTA today back pain and weakness persist odd affect, Vitals Vitals Vital Signs Date Time Temp Pulse Resp B/P Pulse Ox O2 Delivery O2 Flow Rate FiO2 11/19/16 12:20 99 174/93 11/19/16 11:00 98.3 20 96 Room Air 98.3 Physical Exam General: Alert, Oriented X3, Cooperative, No acute distress Heart: Regular rate (tachycardic), Normal S1, Normal S2 Lungs: Clear, Other (No chest retractions) Abdomen: Normal bowel sounds, Soft, No tenderness, No hepatosplenomegaly Extremities: No cyanosis, No edema, Normal pulses, No tenderness/swelling Skin: No rashes, No breakdown (Bruising on left hand) Labs LABS Laboratory Tests Test 11/18/16 13:15 11/19/16 03:45 CSF Tube Number 4 CSF Volume 4.0 CSF Color Colorless CSF Clarity Clear CSF WBC 3 CSF RBC 0 CSF Mononuclear WBCs % 3% CSF Polynuclear WBCs (%) 0% CSF Glucose 52mg/dL (37-70) CSF Total Protein 37.9mg/dL (15.0-45.0) White Blood Count 10.7x10^3/uL (4.0-11.0) Red Blood Count 4.15x10^6/uL (3.50-5.40) Hemoglobin 11.8g/dL (12.0-15.5) Hematocrit 36.2% (36.0-47.0) Mean Corpuscular Volume 87fL (79-100) Mean Corpuscular Hemoglobin 28pg (25-35) Mean Corpuscular Hemoglobin Concent 33g/dL (31-37) Red Cell Distribution Width 14.4% (11.5-14.5) Platelet Count 283x10^3/uL (140-400) Neutrophils (%) (Auto) 73% (31-73) Lymphocytes (%) (Auto) 15% (24-48) Monocytes (%) (Auto) 10% (0-9) Eosinophils (%) (Auto) 2% (0-3) Basophils (%) (Auto) 0% (0-3) Neutrophils # (Auto) 7.7x10^3uL (1.8-7.7) Lymphocytes # (Auto) 1.6x10^3/uL (1.0-4.8) Monocytes # (Auto) 1.1x10^3/uL (0.0-1.1) Eosinophils # (Auto) 0.2x10^3/uL (0.0-0.7) Basophils # (Auto) 0.0x10^3/uL (0.0-0.2) Sodium Level 136mmol/L (136-145) Potassium Level 4.1mmol/L (3.5-5.1) Chloride Level 101mmol/L (98-107) Carbon Dioxide Level 27mmol/L (21-32) Anion Gap 8 (6-14) Blood Urea Nitrogen 13mg/dL (7-20) Creatinine 0.7mg/dL (0.6-1.0) Estimated GFR (Cockcroft-Gault) 81.1 Glucose Level 102mg/dL (70-99) Calcium Level 8.6mg/dL (8.5-10.1) Review of Systems Review of Systems no n.v.d pain better still some weakness Assessment and Plan Assessmemt and Plan Problems Medical Problems: (1) Malignant hypertension Status: Acute (2) Urinary tract infection Status: Acute (3) Weakness Status: Acute Problems: Comment Review of Relevant I have reviewed the following items jean (where applicable) has been applied. Labs Laboratory Tests Test 11/18/16 03:25 11/18/16 10:00 11/18/16 13:15 11/19/16 03:45 White Blood Count 10.8x10^3/uL (4.0-11.0) 10.7x10^3/uL (4.0-11.0) Red Blood Count 4.37x10^6/uL (3.50-5.40) 4.15x10^6/uL (3.50-5.40) Hemoglobin 12.6g/dL (12.0-15.5) 11.8g/dL (12.0-15.5) Hematocrit 37.9% (36.0-47.0) 36.2% (36.0-47.0) Mean Corpuscular Volume 87fL (79-100) 87fL (79-100) Mean Corpuscular Hemoglobin 29pg (25-35) 28pg (25-35) Mean Corpuscular Hemoglobin Concent 33g/dL (31-37) 33g/dL (31-37) Red Cell Distribution Width 14.4% (11.5-14.5) 14.4% (11.5-14.5) Platelet Count 278x10^3/uL (140-400) 283x10^3/uL (140-400) Neutrophils (%) (Auto) 73% (31-73) 73% (31-73) Lymphocytes (%) (Auto) 16% (24-48) 15% (24-48) Monocytes (%) (Auto) 10% (0-9) 10% (0-9) Eosinophils (%) (Auto) 1% (0-3) 2% (0-3) Basophils (%) (Auto) 0% (0-3) 0% (0-3) Neutrophils # (Auto) 7.8x10^3uL (1.8-7.7) 7.7x10^3uL (1.8-7.7) Lymphocytes # (Auto) 1.7x10^3/uL (1.0-4.8) 1.6x10^3/uL (1.0-4.8) Monocytes # (Auto) 1.0x10^3/uL (0.0-1.1) 1.1x10^3/uL (0.0-1.1) Eosinophils # (Auto) 0.1x10^3/uL (0.0-0.7) 0.2x10^3/uL (0.0-0.7) Basophils # (Auto) 0.0x10^3/uL (0.0-0.2) 0.0x10^3/uL (0.0-0.2) Sodium Level 138mmol/L (136-145) 136mmol/L (136-145) Potassium Level 4.0mmol/L (3.5-5.1) 4.1mmol/L (3.5-5.1) Chloride Level 103mmol/L (98-107) 101mmol/L (98-107) Carbon Dioxide Level 29mmol/L (21-32) 27mmol/L (21-32) Anion Gap 6 (6-14) 8 (6-14) Blood Urea Nitrogen 13mg/dL (7-20) 13mg/dL (7-20) Creatinine 0.6mg/dL (0.6-1.0) 0.7mg/dL (0.6-1.0) Estimated GFR (Cockcroft-Gault) 96.9 81.1 Glucose Level 96mg/dL (70-99) 109mg/dL (70-99) 102mg/dL (70-99) Calcium Level 8.9mg/dL (8.5-10.1) 8.6mg/dL (8.5-10.1) Erythrocyte Sedimentation Rate 45 (0-25) Vitamin B12 Level 531pg/mL (247-911) Serum Folate 15.84ng/ml (3.2-20.0) CSF Tube Number 4 CSF Volume 4.0 CSF Color Colorless CSF Clarity Clear CSF WBC 3 CSF RBC 0 CSF Mononuclear WBCs % 3% CSF Polynuclear WBCs (%) 0% CSF Glucose 52mg/dL (37-70) CSF Total Protein 37.9mg/dL (15.0-45.0) Laboratory Tests Test 11/18/16 13:15 11/19/16 03:45 CSF Tube Number 4 CSF Volume 4.0 CSF Color Colorless CSF Clarity Clear CSF WBC 3 CSF RBC 0 CSF Mononuclear WBCs % 3% CSF Polynuclear WBCs (%) 0% CSF Glucose 52mg/dL (37-70) CSF Total Protein 37.9mg/dL (15.0-45.0) White Blood Count 10.7x10^3/uL (4.0-11.0) Red Blood Count 4.15x10^6/uL (3.50-5.40) Hemoglobin 11.8g/dL (12.0-15.5) Hematocrit 36.2% (36.0-47.0) Mean Corpuscular Volume 87fL (79-100) Mean Corpuscular Hemoglobin 28pg (25-35) Mean Corpuscular Hemoglobin Concent 33g/dL (31-37) Red Cell Distribution Width 14.4% (11.5-14.5) Platelet Count 283x10^3/uL (140-400) Neutrophils (%) (Auto) 73% (31-73) Lymphocytes (%) (Auto) 15% (24-48) Monocytes (%) (Auto) 10% (0-9) Eosinophils (%) (Auto) 2% (0-3) Basophils (%) (Auto) 0% (0-3) Neutrophils # (Auto) 7.7x10^3uL (1.8-7.7) Lymphocytes # (Auto) 1.6x10^3/uL (1.0-4.8) Monocytes # (Auto) 1.1x10^3/uL (0.0-1.1) Eosinophils # (Auto) 0.2x10^3/uL (0.0-0.7) Basophils # (Auto) 0.0x10^3/uL (0.0-0.2) Sodium Level 136mmol/L (136-145) Potassium Level 4.1mmol/L (3.5-5.1) Chloride Level 101mmol/L (98-107) Carbon Dioxide Level 27mmol/L (21-32) Anion Gap 8 (6-14) Blood Urea Nitrogen 13mg/dL (7-20) Creatinine 0.7mg/dL (0.6-1.0) Estimated GFR (Cockcroft-Gault) 81.1 Glucose Level 102mg/dL (70-99) Calcium Level 8.6mg/dL (8.5-10.1) Microbiology 11/18/16 Gram Stain - Final, Complete 11/12/16 Urine Culture - Final, Complete 11/12/16 Urine Culture Result 1 (GÓMEZ) - Final, Complete Medications Current Medications Sodium Chloride 500 ml @ 500 mls/hr 1X ONCE IV Last administered on 01:35; Start 11/12/16 at 01:00; Stop 11/12/16 at 01:59; Status DC Nitroglycerin/ Dextrose (Nitroglycerin Drip) 250 ml @ 0 mls/hr 1X ONCE IV Last administered on 11/12/16 01:35; Start 11/12/16 at 01:15; Stop 11/12/16 at 01:16; Status DC Metoprolol Tartrate 12.5 mg 12.5 mg 1X ONCE PO Last administered on 11/12/16 01:34; Start 11/12/16 at 01:15; Stop 11/12/16 at 01:16; Status DC Ceftriaxone Sodium 50 ml @ 100 mls/hr 1X ONCE IV Last administered on 01:34; Start 11/12/16 at 01:15; Stop 11/12/16 at 01:44; Status DC Ceftriaxone Sodium/Sodium Chloride (Rocephin/Iv Sodium Chloride 0.9% 50ml) 50 ml @ 100 mls/hr Q24H IV Last administered on 11/14/16 20:54; Start 11/12/16 at 21:00; Stop 11/15/16 at 11:34; Status DC Ondansetron HCl (Zofran) 4 mg PRN Q8HRS PRN IV NAUSEA/VOMITING; Start 11/12/16 at 03:00; Stop 11/13/16 at 02:59; Status DC Metoprolol Tartrate (Lopressor) 25 mg BID PO ; Start 11/12/16 at 10:30; Stop at 10:35; Status DC Hydralazine HCl (Apresoline) 10 mg PRN Q4HRS PRN IVP ELEVATED BP, SEE COMMENTS Last administered on 11/19/16 12:20; Start 11/12/16 at 10:30 Diltiazem HCl (Cardizem 24hr Cd) 180 mg DAILY PO Last administered on 11:11; Start 11/12/16 at 11:00; Stop 11/12/16 at 12:44; Status DC Diltiazem HCl (Cardizem 24hr Cd) 240 mg DAILY PO Last administered on 11/19/16 08:47; Start 11/13/16 at 09:00 Hydralazine HCl 25 mg 25 mg Q8HRS PO Last administered on 11/17/16 23:36; Start 11/12/16 at 14:00 Sodium Chloride (Iv Sodium Chloride 0.9% 1000ml Bag) 1,000 ml @ 100 mls/hr Q10H IV Last administered on 11/13/16 23:42; Start 11/12/16 at 13:30; Stop 11/17/16 at 06:13; Status DC Gabapentin (Neurontin) 100 mg TID PO Last administered on 11/14/16 10:12; Start 11/12/16 at 21:00; Stop 11/14/16 at 13:40; Status DC Gadobutrol (Gadavist) 10 mmol 1X ONCE IV Last administered on 11/13/16 16:44 ; Start 11/13/16 at 16:30; Stop 11/13/16 at 16:31; Status DC Gabapentin (Neurontin) 300 mg TID PO Last administered on 11/15/16 21:09; Start 11/14/16 at 14:00; Stop 11/16/16 at 11:15; Status DC Methylprednisolone (Medrol) 8 mg BID PO ; Start 11/14/16 at 09:00; Stop at 21:01; Status Cancel Methylprednisolone (Medrol) 4 mg BIDPCLD PO ; Start 11/14/16 at 12:30; Stop at 17:31; Status Cancel Methylprednisolone (Medrol) 4 mg TIDPC PO Last administered on 11/15/16 17:30 ; Start 11/15/16 at 08:30; Stop 11/15/16 at 17:31; Status DC Methylprednisolone (Medrol) 8 mg QHS PO Last administered on 11/15/16 21:09; Start 11/15/16 at 21:00; Stop 11/15/16 at 21:01; Status DC Methylprednisolone (Medrol) 4 mg QIDAFTMEAL PO Last administered on 11/16/16 12 :59; Start 11/16/16 at 09:00; Stop 11/16/16 at 21:01; Status DC Methylprednisolone (Medrol) 4 mg TID PO ; Start 11/17/16 at 09:00; Stop 11/17/16 at 21:01; Status DC Methylprednisolone (Medrol) 4 mg BID PO ; Start 11/18/16 at 09:00; Stop 11/18/16 at 21:01; Status DC Methylprednisolone (Medrol) 4 mg DAILY PO ; Start 11/19/16 at 09:00; Stop at 09:01; Status DC Pantoprazole Sodium (Protonix) 40 mg DAILYAC PO ; Start 11/14/16 at 19:10; Stop 11/15/16 at 05:25; Status DC Methylprednisolone (Medrol) 24 mg 1X ONCE PO Last administered on 11/15/16 00 :28; Start 11/15/16 at 00:30; Stop 11/15/16 at 00:31; Status DC Pantoprazole Sodium (Protonix) 40 mg DAILYAC PO ; Start 11/15/16 at 05:25 Gabapentin (Neurontin) 300 mg STK-MED ONCE PO ; Start 11/16/16 at 07:55; Stop 11/16/16 at 07:56; Status DC Gadobutrol (Gadavist) 10 mmol 1X ONCE IV Last administered on 11/17/16 16:07; Start 11/17/16 at 16:00; Stop 11/17/16 at 16:01; Status DC Aspirin (Haylee Aspirin) 325 mg DAILYWBKFT PO Last administered on 11/19/16 08: 46; Start 11/17/16 at 18:00 Iohexol (Omnipaque 350 Mg/ml) 90 ml 1X ONCE IV ; Start 11/19/16 at 12:30; Stop 11/19/16 at 12:31; Status DC Info (Do NOT chart on this entry -- for MONITORING) 1 each PRN DAILY PRN MC SEE COMMENTS; Start 11/19/16 at 12:15; Stop 11/21/16 at 12:14 Active Scripts Active Reported No Known Medications Prior To Admisstion (Info) Each 1 Each MC Vitals/I & O Vital Sign - Last 24 Hours 11/18/16 11/18/16 11/19/16 11/19/16 19:25 20:00 07:55 08:47 Temp 97.7 97.7 Pulse 111 111 Resp 20 B/P 129/80 129/80 Pulse Ox 94 O2 Delivery Room Air Room Air Room Air 11/19/16 11/19/16 11:00 12:20 Temp 98.3 98.3 Pulse 99 99 Resp 20 B/P 174/93 174/93 Pulse Ox 96 O2 Delivery Room Air Intake and Output 11/18/16 11/18/16 11/19/16 15:00 23:00 07:00 Intake Total 200 ml 500 ml Output Total 100 ml 350 ml Balance 100 ml 150 ml WHITNEY MACK MD Nov 19, 2016 12:58
--- NOTE | 2016-11-19 13:06 | PDOC ---
SUBJECTIVE Subjective Delayed entry: pt seen and examined 11/18/16 approx 14:30 Denies acute changes. Exam stable but improved strength compared to couple days ago. Changes noted on cervical and thoracic cord with post contrast imaging. Appears to be inflammatory vs infarct, neoplasm not completely ruled out. Agree with acquisition of lumbar puncture. OBJECTIVE Vital Signs Vital Signs Date Time Temp Pulse Resp B/P Pulse Ox O2 Delivery O2 Flow Rate FiO2 11/19/16 12:20 99 174/93 11/19/16 11:00 98.3 99 20 174/93 96 Room Air 98.3 11/19/16 08:47 111 129/80 11/19/16 07:55 Room Air 11/18/16 20:00 Room Air 11/18/16 19:25 97.7 111 20 129/80 94 Room Air 97.7 I & O Intake and Output 11/19/16 06:59 Intake Total 700 ml Output Total 450 ml Balance 250 ml Intake Oral 700 ml Output Urine Total 450 ml # Voids 6 COMMENT Lab Laboratory Tests Test 11/18/16 13:15 11/19/16 03:45 CSF Tube Number 4 CSF Volume 4.0 CSF Color Colorless CSF Clarity Clear CSF WBC 3 CSF RBC 0 CSF Mononuclear WBCs % 3% CSF Polynuclear WBCs (%) 0% CSF Glucose 52mg/dL (37-70) CSF Total Protein 37.9mg/dL (15.0-45.0) White Blood Count 10.7x10^3/uL (4.0-11.0) Red Blood Count 4.15x10^6/uL (3.50-5.40) Hemoglobin 11.8g/dL (12.0-15.5) Hematocrit 36.2% (36.0-47.0) Mean Corpuscular Volume 87fL (79-100) Mean Corpuscular Hemoglobin 28pg (25-35) Mean Corpuscular Hemoglobin Concent 33g/dL (31-37) Red Cell Distribution Width 14.4% (11.5-14.5) Platelet Count 283x10^3/uL (140-400) Neutrophils (%) (Auto) 73% (31-73) Lymphocytes (%) (Auto) 15% (24-48) Monocytes (%) (Auto) 10% (0-9) Eosinophils (%) (Auto) 2% (0-3) Basophils (%) (Auto) 0% (0-3) Neutrophils # (Auto) 7.7x10^3uL (1.8-7.7) Lymphocytes # (Auto) 1.6x10^3/uL (1.0-4.8) Monocytes # (Auto) 1.1x10^3/uL (0.0-1.1) Eosinophils # (Auto) 0.2x10^3/uL (0.0-0.7) Basophils # (Auto) 0.0x10^3/uL (0.0-0.2) Sodium Level 136mmol/L (136-145) Potassium Level 4.1mmol/L (3.5-5.1) Chloride Level 101mmol/L (98-107) Carbon Dioxide Level 27mmol/L (21-32) Anion Gap 8 (6-14) Blood Urea Nitrogen 13mg/dL (7-20) Creatinine 0.7mg/dL (0.6-1.0) Estimated GFR (Cockcroft-Gault) 81.1 Glucose Level 102mg/dL (70-99) Calcium Level 8.6mg/dL (8.5-10.1) JOSÉ LUIS FARRELL MD Nov 19, 2016 13:06
--- NOTE | 2016-11-19 13:54 | PDOC ---
SUBJECTIVE Subjective Denies acute changes. Strength overall improving. Had LP. OBJECTIVE Vital Signs Vital Signs Date Time Temp Pulse Resp B/P Pulse Ox O2 Delivery O2 Flow Rate FiO2 11/19/16 12:20 99 174/93 11/19/16 11:00 98.3 99 20 174/93 96 Room Air 98.3 11/19/16 08:47 111 129/80 11/19/16 07:55 Room Air 11/18/16 20:00 Room Air 11/18/16 19:25 97.7 111 20 129/80 94 Room Air 97.7 I & O Intake and Output 11/19/16 07:00 Intake Total 700 ml Output Total 450 ml Balance 250 ml Intake Oral 700 ml Output Urine Total 450 ml # Voids 6 PHYSICAL EXAM Physical Exam AA, NAD, MEDINA stable, sensation intact LT ASSESSMENT/PLAN Assessment/Plan 76F left leg weakness -agree with CTA Problems: COMMENT Lab Laboratory Tests Test 11/19/16 03:45 White Blood Count 10.7x10^3/uL (4.0-11.0) Red Blood Count 4.15x10^6/uL (3.50-5.40) Hemoglobin 11.8g/dL (12.0-15.5) Hematocrit 36.2% (36.0-47.0) Mean Corpuscular Volume 87fL (79-100) Mean Corpuscular Hemoglobin 28pg (25-35) Mean Corpuscular Hemoglobin Concent 33g/dL (31-37) Red Cell Distribution Width 14.4% (11.5-14.5) Platelet Count 283x10^3/uL (140-400) Neutrophils (%) (Auto) 73% (31-73) Lymphocytes (%) (Auto) 15% (24-48) Monocytes (%) (Auto) 10% (0-9) Eosinophils (%) (Auto) 2% (0-3) Basophils (%) (Auto) 0% (0-3) Neutrophils # (Auto) 7.7x10^3uL (1.8-7.7) Lymphocytes # (Auto) 1.6x10^3/uL (1.0-4.8) Monocytes # (Auto) 1.1x10^3/uL (0.0-1.1) Eosinophils # (Auto) 0.2x10^3/uL (0.0-0.7) Basophils # (Auto) 0.0x10^3/uL (0.0-0.2) Sodium Level 136mmol/L (136-145) Potassium Level 4.1mmol/L (3.5-5.1) Chloride Level 101mmol/L (98-107) Carbon Dioxide Level 27mmol/L (21-32) Anion Gap 8 (6-14) Blood Urea Nitrogen 13mg/dL (7-20) Creatinine 0.7mg/dL (0.6-1.0) Estimated GFR (Cockcroft-Gault) 81.1 Glucose Level 102mg/dL (70-99) Calcium Level 8.6mg/dL (8.5-10.1) JOSÉ LUIS FARRELL MD Nov 19, 2016 13:54
--- NOTE | 2016-11-19 16:02 | RAD ---
CTA of the chest and abdomen with contrast, 11/19/2016: History: Spinal cord infarction Multidetector CT imaging was performed following an IV bolus injection of iodinated contrast material. Multiplanar reconstructions were produced including 3-D volume rendered reconstructions of the aorta and its major branches. The thoracic aorta is of normal caliber. No significant narrowing is seen at the origins of the cervicocephalic arteries from the aortic arch. There is no evidence of aortic dissection or significant thoracic atherosclerotic plaquing. Spinal and intercostal arteries are too small to clearly delineate on these scans. There is only minimal calcific plaquing at the origin of the celiac artery from the abdominal aorta without significant narrowing. The superior mesenteric artery origin is widely patent. There is a single widely patent right renal artery. There are 3 smaller left renal arteries with no significant stenosis at their origins. A patent inferior mesenteric artery is evident. The aorta shows no evidence of aneurysm or dissection. The proximal iliac arteries are unremarkable. Incidental CT findings include the presence of multiple small nonspecific low-density nodules in both lobes of the thyroid gland. There is a 13 mm partially calcified pulmonary nodule in the posterior costophrenic angle in the right lower lobe. There is a 6.4 cm left renal cyst. There are mild scattered degenerative changes in the spine. IMPRESSION: No evidence of significant aortic atherosclerotic disease, aneurysm or dissection. History: Spinal cord infarction PQRS Compliance Statement: One or more of the following individualized dose reduction techniques were utilized for this examination: 1. Automated exposure control 2. Adjustment of the mA and/or kV according to patient size 3. Use of iterative reconstruction technique
--- NOTE | 2016-11-19 18:27 | PDOC ---
PROGRESS NOTES Subjective Subjective No new complaints. Objective Objective Vital Signs Date Time Temp Pulse Resp B/P Pulse Ox O2 Delivery O2 Flow Rate FiO2 11/19/16 12:20 99 174/93 11/19/16 11:00 98.3 20 96 Room Air 98.3 Intake and Output 11/19/16 07:00 Intake Total 700 ml Output Total 450 ml Balance 250 ml Intake Oral 700 ml Output Urine Total 450 ml # Voids 6 Physical Exam Physical Exam She continues with left hip,knee flexor and left foot dorsiflexor muscle weakness and mobility and self care limitations. Assessment Assessment Problems Medical Problems: (1) Malignant hypertension Status: Acute (2) Urinary tract infection Status: Acute (3) Weakness Status: Acute Plan Plan of Care Agree with plans. Comment Review of Relevant I have reviewed the following items jean (where applicable) has been applied. Labs Laboratory Tests Test 11/18/16 03:25 11/18/16 10:00 11/18/16 13:15 11/19/16 03:45 White Blood Count 10.8x10^3/uL (4.0-11.0) 10.7x10^3/uL (4.0-11.0) Red Blood Count 4.37x10^6/uL (3.50-5.40) 4.15x10^6/uL (3.50-5.40) Hemoglobin 12.6g/dL (12.0-15.5) 11.8g/dL (12.0-15.5) Hematocrit 37.9% (36.0-47.0) 36.2% (36.0-47.0) Mean Corpuscular Volume 87fL (79-100) 87fL (79-100) Mean Corpuscular Hemoglobin 29pg (25-35) 28pg (25-35) Mean Corpuscular Hemoglobin Concent 33g/dL (31-37) 33g/dL (31-37) Red Cell Distribution Width 14.4% (11.5-14.5) 14.4% (11.5-14.5) Platelet Count 278x10^3/uL (140-400) 283x10^3/uL (140-400) Neutrophils (%) (Auto) 73% (31-73) 73% (31-73) Lymphocytes (%) (Auto) 16% (24-48) 15% (24-48) Monocytes (%) (Auto) 10% (0-9) 10% (0-9) Eosinophils (%) (Auto) 1% (0-3) 2% (0-3) Basophils (%) (Auto) 0% (0-3) 0% (0-3) Neutrophils # (Auto) 7.8x10^3uL (1.8-7.7) 7.7x10^3uL (1.8-7.7) Lymphocytes # (Auto) 1.7x10^3/uL (1.0-4.8) 1.6x10^3/uL (1.0-4.8) Monocytes # (Auto) 1.0x10^3/uL (0.0-1.1) 1.1x10^3/uL (0.0-1.1) Eosinophils # (Auto) 0.1x10^3/uL (0.0-0.7) 0.2x10^3/uL (0.0-0.7) Basophils # (Auto) 0.0x10^3/uL (0.0-0.2) 0.0x10^3/uL (0.0-0.2) Sodium Level 138mmol/L (136-145) 136mmol/L (136-145) Potassium Level 4.0mmol/L (3.5-5.1) 4.1mmol/L (3.5-5.1) Chloride Level 103mmol/L (98-107) 101mmol/L (98-107) Carbon Dioxide Level 29mmol/L (21-32) 27mmol/L (21-32) Anion Gap 6 (6-14) 8 (6-14) Blood Urea Nitrogen 13mg/dL (7-20) 13mg/dL (7-20) Creatinine 0.6mg/dL (0.6-1.0) 0.7mg/dL (0.6-1.0) Estimated GFR (Cockcroft-Gault) 96.9 81.1 Glucose Level 96mg/dL (70-99) 109mg/dL (70-99) 102mg/dL (70-99) Calcium Level 8.9mg/dL (8.5-10.1) 8.6mg/dL (8.5-10.1) Erythrocyte Sedimentation Rate 45 (0-25) Vitamin B12 Level 531pg/mL (247-911) Serum Folate 15.84ng/ml (3.2-20.0) CSF Tube Number 4 CSF Volume 4.0 CSF Color Colorless CSF Clarity Clear CSF WBC 3 CSF RBC 0 CSF Mononuclear WBCs % 3% CSF Polynuclear WBCs (%) 0% CSF Glucose 52mg/dL (37-70) CSF Total Protein 37.9mg/dL (15.0-45.0) Laboratory Tests Test 11/19/16 03:45 White Blood Count 10.7x10^3/uL (4.0-11.0) Red Blood Count 4.15x10^6/uL (3.50-5.40) Hemoglobin 11.8g/dL (12.0-15.5) Hematocrit 36.2% (36.0-47.0) Mean Corpuscular Volume 87fL (79-100) Mean Corpuscular Hemoglobin 28pg (25-35) Mean Corpuscular Hemoglobin Concent 33g/dL (31-37) Red Cell Distribution Width 14.4% (11.5-14.5) Platelet Count 283x10^3/uL (140-400) Neutrophils (%) (Auto) 73% (31-73) Lymphocytes (%) (Auto) 15% (24-48) Monocytes (%) (Auto) 10% (0-9) Eosinophils (%) (Auto) 2% (0-3) Basophils (%) (Auto) 0% (0-3) Neutrophils # (Auto) 7.7x10^3uL (1.8-7.7) Lymphocytes # (Auto) 1.6x10^3/uL (1.0-4.8) Monocytes # (Auto) 1.1x10^3/uL (0.0-1.1) Eosinophils # (Auto) 0.2x10^3/uL (0.0-0.7) Basophils # (Auto) 0.0x10^3/uL (0.0-0.2) Sodium Level 136mmol/L (136-145) Potassium Level 4.1mmol/L (3.5-5.1) Chloride Level 101mmol/L (98-107) Carbon Dioxide Level 27mmol/L (21-32) Anion Gap 8 (6-14) Blood Urea Nitrogen 13mg/dL (7-20) Creatinine 0.7mg/dL (0.6-1.0) Estimated GFR (Cockcroft-Gault) 81.1 Glucose Level 102mg/dL (70-99) Calcium Level 8.6mg/dL (8.5-10.1) Microbiology 11/18/16 Anaerobic/Aerobic Culture, Resulted Pending 11/18/16 Anaerobic Culture Result 1 (GÓMEZ), Resulted Pending 11/18/16 Aerobic Culture - Preliminary, Resulted 11/18/16 Aerobic Culture Result 1 (GÓMEZ) - Preliminary, Resulted 11/12/16 Urine Culture - Final, Complete 11/12/16 Urine Culture Result 1 (GÓMEZ) - Final, Complete Medications Current Medications Sodium Chloride 500 ml @ 500 mls/hr 1X ONCE IV Last administered on 01:35; Start 11/12/16 at 01:00; Stop 11/12/16 at 01:59; Status DC Nitroglycerin/ Dextrose (Nitroglycerin Drip) 250 ml @ 0 mls/hr 1X ONCE IV Last administered on 11/12/16 01:35; Start 11/12/16 at 01:15; Stop 11/12/16 at 01:16; Status DC Metoprolol Tartrate 12.5 mg 12.5 mg 1X ONCE PO Last administered on 11/12/16 01:34; Start 11/12/16 at 01:15; Stop 11/12/16 at 01:16; Status DC Ceftriaxone Sodium 50 ml @ 100 mls/hr 1X ONCE IV Last administered on 01:34; Start 11/12/16 at 01:15; Stop 11/12/16 at 01:44; Status DC Ceftriaxone Sodium/Sodium Chloride (Rocephin/Iv Sodium Chloride 0.9% 50ml) 50 ml @ 100 mls/hr Q24H IV Last administered on 11/14/16 20:54; Start 11/12/16 at 21:00; Stop 11/15/16 at 11:34; Status DC Ondansetron HCl (Zofran) 4 mg PRN Q8HRS PRN IV NAUSEA/VOMITING; Start 11/12/16 at 03:00; Stop 11/13/16 at 02:59; Status DC Metoprolol Tartrate (Lopressor) 25 mg BID PO ; Start 11/12/16 at 10:30; Stop at 10:35; Status DC Hydralazine HCl (Apresoline) 10 mg PRN Q4HRS PRN IVP ELEVATED BP, SEE COMMENTS Last administered on 11/19/16 12:20; Start 11/12/16 at 10:30 Diltiazem HCl (Cardizem 24hr Cd) 180 mg DAILY PO Last administered on 11:11; Start 11/12/16 at 11:00; Stop 11/12/16 at 12:44; Status DC Diltiazem HCl (Cardizem 24hr Cd) 240 mg DAILY PO Last administered on 11/19/16 08:47; Start 11/13/16 at 09:00 Hydralazine HCl 25 mg 25 mg Q8HRS PO Last administered on 11/17/16 23:36; Start 11/12/16 at 14:00 Sodium Chloride (Iv Sodium Chloride 0.9% 1000ml Bag) 1,000 ml @ 100 mls/hr Q10H IV Last administered on 11/13/16 23:42; Start 11/12/16 at 13:30; Stop 11/17/16 at 06:13; Status DC Gabapentin (Neurontin) 100 mg TID PO Last administered on 11/14/16 10:12; Start 11/12/16 at 21:00; Stop 11/14/16 at 13:40; Status DC Gadobutrol (Gadavist) 10 mmol 1X ONCE IV Last administered on 11/13/16 16:44 ; Start 11/13/16 at 16:30; Stop 11/13/16 at 16:31; Status DC Gabapentin (Neurontin) 300 mg TID PO Last administered on 11/15/16 21:09; Start 11/14/16 at 14:00; Stop 11/16/16 at 11:15; Status DC Methylprednisolone (Medrol) 8 mg BID PO ; Start 11/14/16 at 09:00; Stop at 21:01; Status Cancel Methylprednisolone (Medrol) 4 mg BIDPCLD PO ; Start 11/14/16 at 12:30; Stop at 17:31; Status Cancel Methylprednisolone (Medrol) 4 mg TIDPC PO Last administered on 11/15/16 17:30 ; Start 11/15/16 at 08:30; Stop 11/15/16 at 17:31; Status DC Methylprednisolone (Medrol) 8 mg QHS PO Last administered on 11/15/16 21:09; Start 11/15/16 at 21:00; Stop 11/15/16 at 21:01; Status DC Methylprednisolone (Medrol) 4 mg QIDAFTMEAL PO Last administered on 11/16/16 12 :59; Start 11/16/16 at 09:00; Stop 11/16/16 at 21:01; Status DC Methylprednisolone (Medrol) 4 mg TID PO ; Start 11/17/16 at 09:00; Stop 11/17/16 at 21:01; Status DC Methylprednisolone (Medrol) 4 mg BID PO ; Start 11/18/16 at 09:00; Stop 11/18/16 at 21:01; Status DC Methylprednisolone (Medrol) 4 mg DAILY PO ; Start 11/19/16 at 09:00; Stop at 09:01; Status DC Pantoprazole Sodium (Protonix) 40 mg DAILYAC PO ; Start 11/14/16 at 19:10; Stop 11/15/16 at 05:25; Status DC Methylprednisolone (Medrol) 24 mg 1X ONCE PO Last administered on 11/15/16 00 :28; Start 11/15/16 at 00:30; Stop 11/15/16 at 00:31; Status DC Pantoprazole Sodium (Protonix) 40 mg DAILYAC PO ; Start 11/15/16 at 05:25 Gabapentin (Neurontin) 300 mg STK-MED ONCE PO ; Start 11/16/16 at 07:55; Stop 11/16/16 at 07:56; Status DC Gadobutrol (Gadavist) 10 mmol 1X ONCE IV Last administered on 11/17/16 16:07; Start 11/17/16 at 16:00; Stop 11/17/16 at 16:01; Status DC Aspirin (Haylee Aspirin) 325 mg DAILYWBKFT PO Last administered on 11/19/16 08: 46; Start 11/17/16 at 18:00 Iohexol (Omnipaque 350 Mg/ml) 90 ml 1X ONCE IV Last administered on 11/19/16t 13:11; Start 11/19/16 at 12:30; Stop 11/19/16 at 12:31; Status DC Info (Do NOT chart on this entry -- for MONITORING) 1 each PRN DAILY PRN MC SEE COMMENTS; Start 11/19/16 at 12:15; Stop 11/21/16 at 12:14 Active Scripts Active Reported No Known Medications Prior To Admisstion (Info) Each 1 Each MC Vitals/I & O Vital Sign - Last 24 Hours 11/18/16 11/18/16 11/19/16 11/19/16 19:25 20:00 07:55 08:47 Temp 97.7 97.7 Pulse 111 111 Resp 20 B/P 129/80 129/80 Pulse Ox 94 O2 Delivery Room Air Room Air Room Air 11/19/16 11/19/16 11:00 12:20 Temp 98.3 98.3 Pulse 99 99 Resp 20 B/P 174/93 174/93 Pulse Ox 96 O2 Delivery Room Air Intake and Output 11/18/16 11/18/16 11/19/16 15:00 23:00 07:00 Intake Total 200 ml 500 ml Output Total 100 ml 350 ml Balance 100 ml 150 ml RAZ PERKINS MD Nov 19, 2016 18:27
[2016-11-20] MEDS: HYDRALAZINE 25 MG TABLET PO SCH ×2 (04:58→14:00)
[2016-11-20 07:00] VITALS: BP 150/86
[2016-11-20] MEDS: PANTOPRAZOLE 40 MG TABLET.DR. PO SCH (07:30)
[2016-11-20] MEDS: ASPIRIN 325 MG TABLET PO SCH (08:00)
[2016-11-20 08:09] LABS: BASO % 0 % (0-3); EOS % 2 % (0-3); HEMATOCRIT 38.6 % (36.0-47.0); HEMOGLOBIN 12.4 g/dL (12.0-15.5); LYMPH # 1.4 x10^3/uL (1.0-4.8); LYMPH % 15 % (24-48); MEAN CORPUSCULAR HEMOGLOBIN 28 pg (25-35); MEAN CORPUSCULAR HGB CONC 32 g/dL (31-37); MEAN CORPUSCULAR VOLUME 88 fL (79-100); MONO % 8 % (0-9); NEUT % 75 % (31-73); PLATELET COUNT 268 x10^3/uL (140-400); RED BLOOD COUNT 4.41 x10^6/uL (3.50-5.40); WHITE BLOOD COUNT 9.4 x10^3/uL (4.0-11.0)
[2016-11-20 08:22] LABS: CREATININE 0.7 mg/dL (0.6-1.0); GFR 81.1; POTASSIUM 4.4 mmol/L (3.5-5.1)
[2016-11-20] MEDS: DILTIAZEM HCL 240 MG CAP.ER.24H PO SCH (09:00)
[2016-11-20 11:00] VITALS: BP 143/85
--- NOTE | 2016-11-20 13:56 | PDOC ---
PROGRESS NOTES Assessment Problems Medical Problems: (1) Malignant hypertension Status: Acute (2) Urinary tract infection Status: Acute (3) Weakness Status: Acute Demyelinating changes of cervical and thoracic spine, most likely an infarction. CT angiogram negative for any gross abnormalities of the aorta Hypertensive emergency, BP 225/109-124 mmHg. Degenerative spine disease. Obesity. No evidence of acute CVA Refusing to take medications for lutheran reasons. She has not seen a doctor in 40 years Plan Transfer to [facility] soon for further rehabilitation. I discussed with the patient transfer to a tertiary center for spinal angiogram but she is not interested especially since any findings would require significant surgical interventions. I doubt that the angiogram would show an abnormality anyway. Subjective No complaints Objective Vital Signs Date Time Temp Pulse Resp B/P Pulse Ox O2 Delivery O2 Flow Rate FiO2 11/20/16 11:00 97.7 91 18 143/85 95 Room Air 97.7 Intake and Output 11/20/16 07:00 Intake Total 870 ml Output Total 400 ml Balance 470 ml Intake Oral 870 ml Output Urine Total 400 ml # Voids 10 PHYSICAL EXAM Alert. Oriented to time, place and person. PERRL. EOMI. CN: no focal findings. Muscle tone: normal. Muscle strength: 5/5, except 3/5 left lower extremity DTR: 2+ Plantar reflex: flexor Gait: not examined in bed. Sensory exam: no abnormal findings. No cerebellar signs elicited. Review of Relevant I have reviewed the following items jean (where applicable) has been applied. Labs Laboratory Tests Test 11/19/16 03:45 11/20/16 07:10 White Blood Count 10.7x10^3/uL (4.0-11.0) 9.4x10^3/uL (4.0-11.0) Red Blood Count 4.15x10^6/uL (3.50-5.40) 4.41x10^6/uL (3.50-5.40) Hemoglobin 11.8g/dL (12.0-15.5) 12.4g/dL (12.0-15.5) Hematocrit 36.2% (36.0-47.0) 38.6% (36.0-47.0) Mean Corpuscular Volume 87fL (79-100) 88fL (79-100) Mean Corpuscular Hemoglobin 28pg (25-35) 28pg (25-35) Mean Corpuscular Hemoglobin Concent 33g/dL (31-37) 32g/dL (31-37) Red Cell Distribution Width 14.4% (11.5-14.5) 14.0% (11.5-14.5) Platelet Count 283x10^3/uL (140-400) 268x10^3/uL (140-400) Neutrophils (%) (Auto) 73% (31-73) 75% (31-73) Lymphocytes (%) (Auto) 15% (24-48) 15% (24-48) Monocytes (%) (Auto) 10% (0-9) 8% (0-9) Eosinophils (%) (Auto) 2% (0-3) 2% (0-3) Basophils (%) (Auto) 0% (0-3) 0% (0-3) Neutrophils # (Auto) 7.7x10^3uL (1.8-7.7) 7.1x10^3uL (1.8-7.7) Lymphocytes # (Auto) 1.6x10^3/uL (1.0-4.8) 1.4x10^3/uL (1.0-4.8) Monocytes # (Auto) 1.1x10^3/uL (0.0-1.1) 0.8x10^3/uL (0.0-1.1) Eosinophils # (Auto) 0.2x10^3/uL (0.0-0.7) 0.2x10^3/uL (0.0-0.7) Basophils # (Auto) 0.0x10^3/uL (0.0-0.2) 0.0x10^3/uL (0.0-0.2) Sodium Level 136mmol/L (136-145) 137mmol/L (136-145) Potassium Level 4.1mmol/L (3.5-5.1) 4.4mmol/L (3.5-5.1) Chloride Level 101mmol/L (98-107) 102mmol/L (98-107) Carbon Dioxide Level 27mmol/L (21-32) 28mmol/L (21-32) Anion Gap 8 (6-14) 7 (6-14) Blood Urea Nitrogen 13mg/dL (7-20) 10mg/dL (7-20) Creatinine 0.7mg/dL (0.6-1.0) 0.7mg/dL (0.6-1.0) Estimated GFR (Cockcroft-Gault) 81.1 81.1 Glucose Level 102mg/dL (70-99) 100mg/dL (70-99) Calcium Level 8.6mg/dL (8.5-10.1) 9.0mg/dL (8.5-10.1) Laboratory Tests Test 11/20/16 07:10 White Blood Count 9.4x10^3/uL (4.0-11.0) Red Blood Count 4.41x10^6/uL (3.50-5.40) Hemoglobin 12.4g/dL (12.0-15.5) Hematocrit 38.6% (36.0-47.0) Mean Corpuscular Volume 88fL (79-100) Mean Corpuscular Hemoglobin 28pg (25-35) Mean Corpuscular Hemoglobin Concent 32g/dL (31-37) Red Cell Distribution Width 14.0% (11.5-14.5) Platelet Count 268x10^3/uL (140-400) Neutrophils (%) (Auto) 75% (31-73) Lymphocytes (%) (Auto) 15% (24-48) Monocytes (%) (Auto) 8% (0-9) Eosinophils (%) (Auto) 2% (0-3) Basophils (%) (Auto) 0% (0-3) Neutrophils # (Auto) 7.1x10^3uL (1.8-7.7) Lymphocytes # (Auto) 1.4x10^3/uL (1.0-4.8) Monocytes # (Auto) 0.8x10^3/uL (0.0-1.1) Eosinophils # (Auto) 0.2x10^3/uL (0.0-0.7) Basophils # (Auto) 0.0x10^3/uL (0.0-0.2) Sodium Level 137mmol/L (136-145) Potassium Level 4.4mmol/L (3.5-5.1) Chloride Level 102mmol/L (98-107) Carbon Dioxide Level 28mmol/L (21-32) Anion Gap 7 (6-14) Blood Urea Nitrogen 10mg/dL (7-20) Creatinine 0.7mg/dL (0.6-1.0) Estimated GFR (Cockcroft-Gault) 81.1 Glucose Level 100mg/dL (70-99) Calcium Level 9.0mg/dL (8.5-10.1) Microbiology 11/18/16 Anaerobic/Aerobic Culture - Preliminary, Resulted 11/18/16 Anaerobic Culture Result 1 (GÓMEZ) - Preliminary, Resulted 11/18/16 Aerobic Culture - Preliminary, Resulted 11/18/16 Aerobic Culture Result 1 (GÓMEZ) - Preliminary, Resulted 11/12/16 Urine Culture - Final, Complete 11/12/16 Urine Culture Result 1 (GÓMEZ) - Final, Complete Medications Current Medications Sodium Chloride 500 ml @ 500 mls/hr 1X ONCE IV Last administered on 01:35; Start 11/12/16 at 01:00; Stop 11/12/16 at 01:59; Status DC Nitroglycerin/ Dextrose (Nitroglycerin Drip) 250 ml @ 0 mls/hr 1X ONCE IV Last administered on 11/12/16 01:35; Start 11/12/16 at 01:15; Stop 11/12/16 at 01:16; Status DC Metoprolol Tartrate 12.5 mg 12.5 mg 1X ONCE PO Last administered on 11/12/16 01:34; Start 11/12/16 at 01:15; Stop 11/12/16 at 01:16; Status DC Ceftriaxone Sodium 50 ml @ 100 mls/hr 1X ONCE IV Last administered on 01:34; Start 11/12/16 at 01:15; Stop 11/12/16 at 01:44; Status DC Ceftriaxone Sodium/Sodium Chloride (Rocephin/Iv Sodium Chloride 0.9% 50ml) 50 ml @ 100 mls/hr Q24H IV Last administered on 11/14/16 20:54; Start 11/12/16 at 21:00; Stop 11/15/16 at 11:34; Status DC Ondansetron HCl (Zofran) 4 mg PRN Q8HRS PRN IV NAUSEA/VOMITING; Start 11/12/16 at 03:00; Stop 11/13/16 at 02:59; Status DC Metoprolol Tartrate (Lopressor) 25 mg BID PO ; Start 11/12/16 at 10:30; Stop at 10:35; Status DC Hydralazine HCl (Apresoline) 10 mg PRN Q4HRS PRN IVP ELEVATED BP, SEE COMMENTS Last administered on 11/19/16 12:20; Start 11/12/16 at 10:30 Diltiazem HCl (Cardizem 24hr Cd) 180 mg DAILY PO Last administered on 11:11; Start 11/12/16 at 11:00; Stop 11/12/16 at 12:44; Status DC Diltiazem HCl (Cardizem 24hr Cd) 240 mg DAILY PO Last administered on 11/19/16 08:47; Start 11/13/16 at 09:00 Hydralazine HCl 25 mg 25 mg Q8HRS PO Last administered on 11/17/16 23:36; Start 11/12/16 at 14:00 Sodium Chloride (Iv Sodium Chloride 0.9% 1000ml Bag) 1,000 ml @ 100 mls/hr Q10H IV Last administered on 11/13/16 23:42; Start 11/12/16 at 13:30; Stop 11/17/16 at 06:13; Status DC Gabapentin (Neurontin) 100 mg TID PO Last administered on 11/14/16 10:12; Start 11/12/16 at 21:00; Stop 11/14/16 at 13:40; Status DC Gadobutrol (Gadavist) 10 mmol 1X ONCE IV Last administered on 11/13/16 16:44 ; Start 11/13/16 at 16:30; Stop 11/13/16 at 16:31; Status DC Gabapentin (Neurontin) 300 mg TID PO Last administered on 11/15/16 21:09; Start 11/14/16 at 14:00; Stop 11/16/16 at 11:15; Status DC Methylprednisolone (Medrol) 8 mg BID PO ; Start 11/14/16 at 09:00; Stop at 21:01; Status Cancel Methylprednisolone (Medrol) 4 mg BIDPCLD PO ; Start 11/14/16 at 12:30; Stop at 17:31; Status Cancel Methylprednisolone (Medrol) 4 mg TIDPC PO Last administered on 11/15/16 17:30 ; Start 11/15/16 at 08:30; Stop 11/15/16 at 17:31; Status DC Methylprednisolone (Medrol) 8 mg QHS PO Last administered on 11/15/16 21:09; Start 11/15/16 at 21:00; Stop 11/15/16 at 21:01; Status DC Methylprednisolone (Medrol) 4 mg QIDAFTMEAL PO Last administered on 11/16/16 12 :59; Start 11/16/16 at 09:00; Stop 11/16/16 at 21:01; Status DC Methylprednisolone (Medrol) 4 mg TID PO ; Start 11/17/16 at 09:00; Stop 11/17/16 at 21:01; Status DC Methylprednisolone (Medrol) 4 mg BID PO ; Start 11/18/16 at 09:00; Stop 11/18/16 at 21:01; Status DC Methylprednisolone (Medrol) 4 mg DAILY PO ; Start 11/19/16 at 09:00; Stop at 09:01; Status DC Pantoprazole Sodium (Protonix) 40 mg DAILYAC PO ; Start 11/14/16 at 19:10; Stop 11/15/16 at 05:25; Status DC Methylprednisolone (Medrol) 24 mg 1X ONCE PO Last administered on 11/15/16 00 :28; Start 11/15/16 at 00:30; Stop 11/15/16 at 00:31; Status DC Pantoprazole Sodium (Protonix) 40 mg DAILYAC PO ; Start 11/15/16 at 05:25 Gabapentin (Neurontin) 300 mg STK-MED ONCE PO ; Start 11/16/16 at 07:55; Stop 11/16/16 at 07:56; Status DC Gadobutrol (Gadavist) 10 mmol 1X ONCE IV Last administered on 11/17/16 16:07; Start 11/17/16 at 16:00; Stop 11/17/16 at 16:01; Status DC Aspirin (Haylee Aspirin) 325 mg DAILYWBKFT PO Last administered on 11/19/16 08: 46; Start 11/17/16 at 18:00 Iohexol (Omnipaque 350 Mg/ml) 90 ml 1X ONCE IV Last administered on 11/19/16t 13:11; Start 11/19/16 at 12:30; Stop 11/19/16 at 12:31; Status DC Info (Do NOT chart on this entry -- for MONITORING) 1 each PRN DAILY PRN MC SEE COMMENTS; Start 11/19/16 at 12:15; Stop 11/21/16 at 12:14 Active Scripts Active Reported No Known Medications Prior To Admisstion (Info) Each 1 Each MC Vitals/I & O Vital Sign - Last 24 Hours 11/19/16 11/20/16 11/20/16 11/20/16 20:00 07:00 08:00 11:00 Temp 97.7 97.7 97.7 97.7 Pulse 95 91 Resp 18 18 B/P 150/86 143/85 Pulse Ox 95 95 O2 Delivery Room Air Room Air Room Air Room Air Intake and Output 11/19/16 11/19/16 11/20/16 15:00 23:00 07:00 Intake Total 200 ml 470 ml 200 ml Output Total 400 ml Balance 200 ml 470 ml -200 ml LISA BECERRA MD Nov 20, 2016 13:56
--- NOTE | 2016-11-20 16:19 | PDOC ---
PROGRESS NOTES Subjective Subjective No new complaints. Objective Objective Vital Signs Date Time Temp Pulse Resp B/P Pulse Ox O2 Delivery O2 Flow Rate FiO2 11/20/16 11:00 97.7 91 18 143/85 95 Room Air 97.7 Intake and Output 11/20/16 07:00 Intake Total 870 ml Output Total 400 ml Balance 470 ml Intake Oral 870 ml Output Urine Total 400 ml # Voids 10 Physical Exam Physical Exam She is supine in bed and comfortable and no change with her left lower extremity weakness. Assessment Assessment Problems Medical Problems: (1) Malignant hypertension Status: Acute (2) Urinary tract infection Status: Acute (3) Weakness Status: Acute Plan Plan of Care Agree with plans for transfer to SNF when medically stable. Comment Review of Relevant I have reviewed the following items jean (where applicable) has been applied. Labs Laboratory Tests Test 11/19/16 03:45 11/20/16 07:10 White Blood Count 10.7x10^3/uL (4.0-11.0) 9.4x10^3/uL (4.0-11.0) Red Blood Count 4.15x10^6/uL (3.50-5.40) 4.41x10^6/uL (3.50-5.40) Hemoglobin 11.8g/dL (12.0-15.5) 12.4g/dL (12.0-15.5) Hematocrit 36.2% (36.0-47.0) 38.6% (36.0-47.0) Mean Corpuscular Volume 87fL (79-100) 88fL (79-100) Mean Corpuscular Hemoglobin 28pg (25-35) 28pg (25-35) Mean Corpuscular Hemoglobin Concent 33g/dL (31-37) 32g/dL (31-37) Red Cell Distribution Width 14.4% (11.5-14.5) 14.0% (11.5-14.5) Platelet Count 283x10^3/uL (140-400) 268x10^3/uL (140-400) Neutrophils (%) (Auto) 73% (31-73) 75% (31-73) Lymphocytes (%) (Auto) 15% (24-48) 15% (24-48) Monocytes (%) (Auto) 10% (0-9) 8% (0-9) Eosinophils (%) (Auto) 2% (0-3) 2% (0-3) Basophils (%) (Auto) 0% (0-3) 0% (0-3) Neutrophils # (Auto) 7.7x10^3uL (1.8-7.7) 7.1x10^3uL (1.8-7.7) Lymphocytes # (Auto) 1.6x10^3/uL (1.0-4.8) 1.4x10^3/uL (1.0-4.8) Monocytes # (Auto) 1.1x10^3/uL (0.0-1.1) 0.8x10^3/uL (0.0-1.1) Eosinophils # (Auto) 0.2x10^3/uL (0.0-0.7) 0.2x10^3/uL (0.0-0.7) Basophils # (Auto) 0.0x10^3/uL (0.0-0.2) 0.0x10^3/uL (0.0-0.2) Sodium Level 136mmol/L (136-145) 137mmol/L (136-145) Potassium Level 4.1mmol/L (3.5-5.1) 4.4mmol/L (3.5-5.1) Chloride Level 101mmol/L (98-107) 102mmol/L (98-107) Carbon Dioxide Level 27mmol/L (21-32) 28mmol/L (21-32) Anion Gap 8 (6-14) 7 (6-14) Blood Urea Nitrogen 13mg/dL (7-20) 10mg/dL (7-20) Creatinine 0.7mg/dL (0.6-1.0) 0.7mg/dL (0.6-1.0) Estimated GFR (Cockcroft-Gault) 81.1 81.1 Glucose Level 102mg/dL (70-99) 100mg/dL (70-99) Calcium Level 8.6mg/dL (8.5-10.1) 9.0mg/dL (8.5-10.1) Laboratory Tests Test 11/20/16 07:10 White Blood Count 9.4x10^3/uL (4.0-11.0) Red Blood Count 4.41x10^6/uL (3.50-5.40) Hemoglobin 12.4g/dL (12.0-15.5) Hematocrit 38.6% (36.0-47.0) Mean Corpuscular Volume 88fL (79-100) Mean Corpuscular Hemoglobin 28pg (25-35) Mean Corpuscular Hemoglobin Concent 32g/dL (31-37) Red Cell Distribution Width 14.0% (11.5-14.5) Platelet Count 268x10^3/uL (140-400) Neutrophils (%) (Auto) 75% (31-73) Lymphocytes (%) (Auto) 15% (24-48) Monocytes (%) (Auto) 8% (0-9) Eosinophils (%) (Auto) 2% (0-3) Basophils (%) (Auto) 0% (0-3) Neutrophils # (Auto) 7.1x10^3uL (1.8-7.7) Lymphocytes # (Auto) 1.4x10^3/uL (1.0-4.8) Monocytes # (Auto) 0.8x10^3/uL (0.0-1.1) Eosinophils # (Auto) 0.2x10^3/uL (0.0-0.7) Basophils # (Auto) 0.0x10^3/uL (0.0-0.2) Sodium Level 137mmol/L (136-145) Potassium Level 4.4mmol/L (3.5-5.1) Chloride Level 102mmol/L (98-107) Carbon Dioxide Level 28mmol/L (21-32) Anion Gap 7 (6-14) Blood Urea Nitrogen 10mg/dL (7-20) Creatinine 0.7mg/dL (0.6-1.0) Estimated GFR (Cockcroft-Gault) 81.1 Glucose Level 100mg/dL (70-99) Calcium Level 9.0mg/dL (8.5-10.1) Microbiology 11/18/16 Anaerobic/Aerobic Culture - Preliminary, Resulted 11/18/16 Anaerobic Culture Result 1 (GÓMEZ) - Preliminary, Resulted 11/18/16 Aerobic Culture - Preliminary, Resulted 11/18/16 Aerobic Culture Result 1 (GÓMEZ) - Preliminary, Resulted 11/12/16 Urine Culture - Final, Complete 11/12/16 Urine Culture Result 1 (GÓMEZ) - Final, Complete Medications Current Medications Sodium Chloride 500 ml @ 500 mls/hr 1X ONCE IV Last administered on 01:35; Start 11/12/16 at 01:00; Stop 11/12/16 at 01:59; Status DC Nitroglycerin/ Dextrose (Nitroglycerin Drip) 250 ml @ 0 mls/hr 1X ONCE IV Last administered on 11/12/16 01:35; Start 11/12/16 at 01:15; Stop 11/12/16 at 01:16; Status DC Metoprolol Tartrate 12.5 mg 12.5 mg 1X ONCE PO Last administered on 11/12/16 01:34; Start 11/12/16 at 01:15; Stop 11/12/16 at 01:16; Status DC Ceftriaxone Sodium 50 ml @ 100 mls/hr 1X ONCE IV Last administered on 01:34; Start 11/12/16 at 01:15; Stop 11/12/16 at 01:44; Status DC Ceftriaxone Sodium/Sodium Chloride (Rocephin/Iv Sodium Chloride 0.9% 50ml) 50 ml @ 100 mls/hr Q24H IV Last administered on 11/14/16 20:54; Start 11/12/16 at 21:00; Stop 11/15/16 at 11:34; Status DC Ondansetron HCl (Zofran) 4 mg PRN Q8HRS PRN IV NAUSEA/VOMITING; Start 11/12/16 at 03:00; Stop 11/13/16 at 02:59; Status DC Metoprolol Tartrate (Lopressor) 25 mg BID PO ; Start 11/12/16 at 10:30; Stop at 10:35; Status DC Hydralazine HCl (Apresoline) 10 mg PRN Q4HRS PRN IVP ELEVATED BP, SEE COMMENTS Last administered on 11/19/16 12:20; Start 11/12/16 at 10:30 Diltiazem HCl (Cardizem 24hr Cd) 180 mg DAILY PO Last administered on 11:11; Start 11/12/16 at 11:00; Stop 11/12/16 at 12:44; Status DC Diltiazem HCl (Cardizem 24hr Cd) 240 mg DAILY PO Last administered on 11/19/16 08:47; Start 11/13/16 at 09:00 Hydralazine HCl 25 mg 25 mg Q8HRS PO Last administered on 11/17/16 23:36; Start 11/12/16 at 14:00 Sodium Chloride (Iv Sodium Chloride 0.9% 1000ml Bag) 1,000 ml @ 100 mls/hr Q10H IV Last administered on 11/13/16 23:42; Start 11/12/16 at 13:30; Stop 11/17/16 at 06:13; Status DC Gabapentin (Neurontin) 100 mg TID PO Last administered on 11/14/16 10:12; Start 11/12/16 at 21:00; Stop 11/14/16 at 13:40; Status DC Gadobutrol (Gadavist) 10 mmol 1X ONCE IV Last administered on 11/13/16 16:44 ; Start 11/13/16 at 16:30; Stop 11/13/16 at 16:31; Status DC Gabapentin (Neurontin) 300 mg TID PO Last administered on 11/15/16 21:09; Start 11/14/16 at 14:00; Stop 11/16/16 at 11:15; Status DC Methylprednisolone (Medrol) 8 mg BID PO ; Start 11/14/16 at 09:00; Stop at 21:01; Status Cancel Methylprednisolone (Medrol) 4 mg BIDPCLD PO ; Start 11/14/16 at 12:30; Stop at 17:31; Status Cancel Methylprednisolone (Medrol) 4 mg TIDPC PO Last administered on 11/15/16 17:30 ; Start 11/15/16 at 08:30; Stop 11/15/16 at 17:31; Status DC Methylprednisolone (Medrol) 8 mg QHS PO Last administered on 11/15/16 21:09; Start 11/15/16 at 21:00; Stop 11/15/16 at 21:01; Status DC Methylprednisolone (Medrol) 4 mg QIDAFTMEAL PO Last administered on 11/16/16 12 :59; Start 11/16/16 at 09:00; Stop 11/16/16 at 21:01; Status DC Methylprednisolone (Medrol) 4 mg TID PO ; Start 11/17/16 at 09:00; Stop 11/17/16 at 21:01; Status DC Methylprednisolone (Medrol) 4 mg BID PO ; Start 11/18/16 at 09:00; Stop 11/18/16 at 21:01; Status DC Methylprednisolone (Medrol) 4 mg DAILY PO ; Start 11/19/16 at 09:00; Stop at 09:01; Status DC Pantoprazole Sodium (Protonix) 40 mg DAILYAC PO ; Start 11/14/16 at 19:10; Stop 11/15/16 at 05:25; Status DC Methylprednisolone (Medrol) 24 mg 1X ONCE PO Last administered on 11/15/16 00 :28; Start 11/15/16 at 00:30; Stop 11/15/16 at 00:31; Status DC Pantoprazole Sodium (Protonix) 40 mg DAILYAC PO ; Start 11/15/16 at 05:25 Gabapentin (Neurontin) 300 mg STK-MED ONCE PO ; Start 11/16/16 at 07:55; Stop 11/16/16 at 07:56; Status DC Gadobutrol (Gadavist) 10 mmol 1X ONCE IV Last administered on 11/17/16 16:07; Start 11/17/16 at 16:00; Stop 11/17/16 at 16:01; Status DC Aspirin (Haylee Aspirin) 325 mg DAILYWBKFT PO Last administered on 11/19/16 08: 46; Start 11/17/16 at 18:00 Iohexol (Omnipaque 350 Mg/ml) 90 ml 1X ONCE IV Last administered on 11/19/16 13:11; Start 11/19/16 at 12:30; Stop 11/19/16 at 12:31; Status DC Info (Do NOT chart on this entry -- for MONITORING) 1 each PRN DAILY PRN MC SEE COMMENTS; Start 11/19/16 at 12:15; Stop 11/21/16 at 12:14 Active Scripts Active Reported No Known Medications Prior To Admisstion (Info) Each 1 Each MC Vitals/I & O Vital Sign - Last 24 Hours 11/19/16 11/20/16 11/20/16 11/20/16 20:00 07:00 08:00 11:00 Temp 97.7 97.7 97.7 97.7 Pulse 95 91 Resp 18 18 B/P 150/86 143/85 Pulse Ox 95 95 O2 Delivery Room Air Room Air Room Air Room Air Intake and Output 11/19/16 11/19/16 11/20/16 15:00 23:00 07:00 Intake Total 200 ml 470 ml 200 ml Output Total 400 ml Balance 200 ml 470 ml -200 ml RAZ PERKINS MD Nov 20, 2016 16:19
[2016-11-20 21:24] LABS: IMMUNOGLOBULIN A 267 mg/dL (64-422); IMMUNOGLOBULIN G 1457 mg/dL (700-1600); IMMUNOGLOBULIN M 29 mg/dL (26-217)
[2016-11-25 16:20] LABS: CSF IGG INDEX 0.6 (0.0-0.7)
== END 2016-11-20 16:10 | DRG 690 ==
LOC: ER 23:15 → 2 NORTH 11-12 01:00 → 4 NORTH 11-15
PROVIDERS: ADMIT Internal Medicine Hematology & Oncology; ATTEND Internal Medicine Hematology & Oncology
PROC: 009U3ZX Drainage of Spinal Canal, Percutaneous Approach, Diagnostic (ICD-10-PCS; principal; 2016-11-18)
PROC: B01B1ZZ Fluoroscopy of Spinal Cord using Low Osmolar Contrast (ICD-10-PCS; 2016-11-18)
DX: N39.0 Urinary tract infection, site not specified (principal); I16.1 Hypertensive emergency; R65.10 Systemic inflammatory response syndrome (SIRS) of non-infectious origin without acute organ dysfunction; R53.1 Weakness; E66.9 Obesity, unspecified; Z68.38 Body mass index [BMI] 38.0-38.9, adult; F03.90 Unspecified dementia, unspecified severity, without behavioral disturbance, psychotic disturbance, mood disturbance, and anxiety; I10 Essential (primary) hypertension; M19.90 Unspecified osteoarthritis, unspecified site; M51.16 Intervertebral disc disorders with radiculopathy, lumbar region; M79.7 Fibromyalgia; W19.XXXA Unspecified fall, initial encounter; Y92.009 Unspecified place in unspecified non-institutional (private) residence as the place of occurrence of the external cause; Z79.899 Other long term (current) drug therapy; Z82.49 Family history of ischemic heart disease and other diseases of the circulatory system; Z83.3 Family history of diabetes mellitus; Z87.891 Personal history of nicotine dependence; Z91.19 Patient's noncompliance with other medical treatment and regimen
CPT/HCPCS: 99285; C8929; 36415; 62270; 70450; 70551; 71010; 71275; 72146; 72147; 72156; 72158; 74175; 80048; 80053; 80061; 81001; 82550; 82607; 82746; 82787; 82945; 82947; 83605; 83874; 83880; 83916; 84157; 84443; 84484; 85007; 85027; 85610; 85651; 85730; 86334; 87071; 87075; 87086; 87205; 89051; 93005; 96374; 96375; A9585; G0481; J0360; J0690; J0696; J3490; J7030; J7040; J7509; Q9967; 97110; 97116; 97530; 97535